=== PATIENT | male | born 1955 | race Hispanic/Latino ===

== ENCOUNTER 2017-01-25 16:55 | Emergency (ER) | payer MEDICAID, OTHER ==
[2017-01-25 16:57] VITALS: PULSE 84; RESP 16; TEMP 98.2; O2SAT 98
[2017-01-25 16:58] VITALS: BMI 22.6
--- NOTE | 2017-01-25 17:49 | ED PDOC ---
HPI: Back Time Seen by Provider: 01/25/17 17:05 Chief Complaint (Nursing): Back Pain History Per: Patient History/Exam Limitations: no limitations Onset/Duration Of Symptoms: Gradual (chronic shoulder and back pain) Current Symptoms Are (Timing): Still Present Severity: Mild Previous Symptoms: Back Pain Associated Symptoms: None Exacerbating Factor(s): Movement Additional History Per: Patient Additional Complaint(s): pt complains of worsening of his chronic shoulder and back pain, pt just got d/ c from heroin detox. concern over his bp no f/c/n/t/w, no bowel or bladder retention or incontinence Past Medical History Reviewed: Historical Data, Nursing Documentation, Vital Signs Vital Signs: Last Vital Signs Temp 98.2 F 01/25/17 16:57 Pulse 84 01/25/17 16:57 Resp 16 01/25/17 16:57 BP 143/85 01/25/17 16:57 Pulse Ox 98 01/25/17 16:57 - Medical History PMH: Anemia, Arthritis, Back Problems, HTN, Rheumatoid Arthritis, Chronic Pain Denies: Diabetes, Hepatitis, HIV, Chronic Kidney Disease, Seizures, Sexually Transmitted Disease - Family History Family History: States: Hypertension - Living Arrangements Living Arrangements: With Friends/Others - Social History Drugs: Opiates (heroin) - Immunization History Hx Tetanus Toxoid Vaccination: No Hx Influenza Vaccination: Yes Hx Pneumococcal Vaccination: Yes - Home Medications Home Medications: Ambulatory Orders Medication Instructions Recorded Clonidine 0.3 mg PO 01/20/17 Lisinopril [Zestril] 5 mg PO DAILY #30 tab 01/24/17 amLODIPine [Norvasc] 5 mg PO DAILY #30 tab 01/24/17 cloNIDine [Catapres] 0.1 mg PO Q8 #90 tab 01/24/17 traZODone [Desyrel] 50 mg PO HS PRN #30 tab 01/24/17 Cane 1 each MC ONCE #1 each 01/25/17 Ibuprofen [Motrin Tab] 600 mg PO QID PRN #60 tab 01/25/17 - Allergies Allergies/Adverse Reactions: Allergies Allergy/AdvReac Type Severity Reaction Status Date / Time No Known Allergies Allergy Verified 01/25/17 17:11 Review of Systems ROS Statement: Except As Marked, All Systems Reviewed And Found Negative Constitutional: Negative for: Fever, Chills Cardiovascular: Negative for: Chest Pain, Palpitations Respiratory: Negative for: Cough, Shortness of Breath Gastrointestinal: Negative for: Nausea, Vomiting, Abdominal Pain Neurological: Negative for: Weakness, Numbness, Change in Speech, Confusion, Seizures, Altered Mental Status, Headache, Dizziness Physical Exam - Reviewed Nursing Documentation Reviewed: Yes Vital Signs Reviewed: Yes - Physical Exam Appears: Positive for: Well, No Acute Distress Head Exam: Positive for: ATRAUMATIC, NORMAL INSPECTION, NORMOCEPHALIC Eye Exam: Positive for: Normal appearance, EOMI, PERRL ENT: Positive for: Pharynx Is Neck: Positive for: Normal, Painless ROM, Supple. Negative for: Decreased ROM, Limited ROM, Trachea Midline, Pain On Movement Of Neck Cardiovascular/Chest: Positive for: Regular Rate, Rhythm, Chest Non Tender. Negative for: Edema, Gallop, Murmur, Bradycardia, Tachycardia Respiratory: Positive for: Normal Breath Sounds. Negative for: Decreased Breath Sounds, Accessory Muscle Use, Crackles, Rales, Rhonchi, Stridor, Wheezing Pulses-Post. Tibialis (L): 2+ Pulses-Post. Tibialis (R): 2+ Pulses-Radial (L): 2+ Pulses-Radial (R): 2+ Gastrointestinal/Abdominal: Positive for: Normal Exam, Bowel Sounds, Soft. Negative for: Tenderness Back: Positive for: Normal Inspection. Negative for: L CVA Tenderness, R CVA Tenderness, Vertebral Tenderness, Decreased ROM, Muscle Spasm Extremity: Positive for: Normal ROM. Negative for: Tenderness, Pedal Edema, Calf Tenderness, Deformity, Swelling Neurologic/Psych: Positive for: Alert, non destructive testing inspector II-XII, Oriented, Mood/Affect (calm) , Gait (steady), Other (+ ehl bl). Negative for: Motor/Sensory Deficits, Aphasia, Facial Droop - ECG O2 Sat by Pulse Oximetry: 98 Pulse Ox Interpretation: Normal - Progress ED Course And Treament: pt wants percocet for pain but I would not prescribed a pt who just left opiate detox opiates. pt understands advise nsaids. advise recheck at medical clinic. Disposition - Clinical Impression Clinical Impression: Chronic back pain - Patient ED Disposition Is Patient to be Admitted: No Counseled Patient/Family Regarding: Studies Performed, Diagnosis, Need For Followup, Rx Given - Disposition Referrals: [facility] [Outside] (2 to 3 days) Disposition: Routine/Home Disposition Time: 17:46 Condition: GOOD Prescriptions: Cane 1 each MC ONCE #1 each Ibuprofen [Motrin Tab] 600 mg PO QID PRN #60 tab PRN Reason: Pain, Moderate (4-7) Instructions: Back Pain (ED)
[2017-01-25 17:57] VITALS: BP 131/89
== END 2017-01-25 17:55 | disposition home or self-care (01) ==
LOC: H.ER 16:55
DX: M54.9 Dorsalgia, unspecified (principal); G89.29 Other chronic pain; I10 Essential (primary) hypertension; M06.9 Rheumatoid arthritis, unspecified

== ENCOUNTER 2017-01-31 06:10 | Observation (INO) | payer MEDICAID, OTHER ==
[2017-01-31 06:10] VITALS: BMI 22.6
[2017-01-31 06:24] VITALS: BP 154/104; PULSE 73; RESP 20; TEMP 98; O2SAT 95
--- NOTE | 2017-01-31 06:31 | ED PDOC ---
HPI: Psych/Substance Abuse Time Seen by Provider: 01/31/17 06:17 Chief Complaint (Nursing): Substance Abuse Chief Complaint (Provider): possible overdose History Per: Patient History/Exam Limitations: no limitations Onset/Duration Of Symptoms: Hrs Current Symptoms Are (Timing): Better Additional Complaint(s): 61yo male with PMHx including polysubstance abuse, HTN, alcohol abuse presents to the ED for eval of possible overdose. Patient reports using 2 bags of heroin and drinking alcohol last night. [facility] called 911 when they saw patient. EMS administered 2mg of intranasal narcan in the field. Upon arrival to ED, patient is AAOx3. Past Medical History Reviewed: Historical Data, Nursing Documentation, Vital Signs Vital Signs: Last Vital Signs Temp 98 F 01/31/17 06:22 Pulse 73 01/31/17 06:22 Resp 20 01/31/17 06:22 BP 154/104 H 01/31/17 06:22 Pulse Ox 95 01/31/17 06:22 - Medical History PMH: Anemia, Arthritis, Back Problems, HTN, Rheumatoid Arthritis, Chronic Pain Denies: Diabetes, Hepatitis, HIV, Chronic Kidney Disease, Seizures, Sexually Transmitted Disease - Surgical History Other surgeries: left ankle - Family History Family History: States: Hypertension - Social History Alcohol: Other (hx of alcohol abuse) Drugs: Other (hx of polysubstance abuse ) - Immunization History Hx Tetanus Toxoid Vaccination: No Hx Influenza Vaccination: Yes Hx Pneumococcal Vaccination: Yes - Home Medications Home Medications: Ambulatory Orders Medication Instructions Recorded Clonidine 0.3 mg PO 01/20/17 Lisinopril [Zestril] 5 mg PO DAILY #30 tab 01/24/17 amLODIPine [Norvasc] 5 mg PO DAILY #30 tab 01/24/17 cloNIDine [Catapres] 0.1 mg PO Q8 #90 tab 01/24/17 traZODone [Desyrel] 50 mg PO HS PRN #30 tab 01/24/17 Cane 1 each MC ONCE #1 each 01/25/17 Ibuprofen [Motrin Tab] 600 mg PO QID PRN #60 tab 01/25/17 - Allergies Allergies/Adverse Reactions: Allergies Allergy/AdvReac Type Severity Reaction Status Date / Time No Known Allergies Allergy Verified 01/25/17 17:11 Review of Systems ROS Statement: Except As Marked, All Systems Reviewed And Found Negative Physical Exam - Reviewed Nursing Documentation Reviewed: Yes Vital Signs Reviewed: Yes - Physical Exam Appears: Positive for: Well, No Acute Distress Head Exam: Positive for: ATRAUMATIC, NORMAL INSPECTION, NORMOCEPHALIC Skin: Positive for: Normal Color, Warm, Dry Eye Exam: Positive for: Normal appearance, EOMI, PERRL ENT: Positive for: Normal ENT Inspection Neck: Positive for: Normal, Painless ROM, Supple Cardiovascular/Chest: Positive for: Regular Rate, Rhythm. Negative for: Murmur , Tachycardia Respiratory: Positive for: Normal Breath Sounds. Negative for: Wheezing, Respiratory Distress Gastrointestinal/Abdominal: Positive for: Normal Exam, Bowel Sounds, Soft. Negative for: Tenderness Back: Positive for: Normal Inspection Extremity: Positive for: Normal ROM. Negative for: Deformity, Swelling Neurologic/Psych: Positive for: Alert, Oriented - Laboratory Results Result Diagrams: 01/31/17 07:02 01/31/17 07:02 - ECG O2 Sat by Pulse Oximetry: 95 Pulse Ox Interpretation: Normal (RA) Medical Decision Making Medical Decision Makin: Impression: possible overdose Plan: EKG Labs IVF reassess Patient s/o to Dr. Viera at 0700 pending labs and re-eval. Scribe Attestation: Documented by Daja Yanez acting as a scribe for Parisa Bedolla MD. Provider Scribe Attestation: All medical record entries made by the Scribe were at my direction and personally dictated by me. I have reviewed the chart and agree that the record accurately reflects my personal performance of the history, physical exam, medical decision making, and the department course for this patient. I have also personally directed, reviewed, and agree with the discharge instructions and disposition. Disposition - Clinical Impression Clinical Impression: Polysubstance abuse - Patient ED Disposition Is Patient to be Admitted: Transfer of Care - Disposition Disposition: Transfer of Care Disposition Time: 07:00 Condition: STABLE Patient Signed Over To: Neftali Viera Handoff Comments: pending labs and re-eval
[2017-01-31] MEDS ORDERED: Sodium Chloride 0.9% 1,000 ML IV STA (06:40)
[2017-01-31 07:18] LABS: ALB/GLOB RATIO 1.1 (1.0-2.1); ALCOHOL SERUM 92 mg/dl (0-10); ALKALINE PHOSPHATASE 64 U/L (38-126); ALT/SGPT 29 U/L (21-72); AST/SGOT 26 U/L (17-59); BILIRUBIN,TOTAL 0.2 mg/dl (0.2-1.3); BLOOD UREA NITROGEN 17 mg/dl (9-20); CALCIUM 9.1 mg/dL (8.4-10.2); CARBON DIOXIDE 23 mmol/L (22-30); CHLORIDE 108 mmol/L (98-107); GFR AFRICAN-AMERICAN > 60; GLUCOSE,RANDOM 88 mg/dL (75-110); POTASSIUM 3.9 MMOL/L (3.6-5.0); SODIUM 140 mmol/l (132-148); TOTAL PROTEIN 7.8 G/DL (6.3-8.2)
--- NOTE | 2017-01-31 07:20 | ED PDOC ---
- Laboratory Results Result Diagrams: 01/31/17 07:02 01/31/17 07:02 - ECG O2 Sat by Pulse Oximetry: 95 (RA) Pulse Ox Interpretation: Normal Medical Decision Making Medical Decision Makin:00 Patient transferred over to provider by Dr. Bedolla. Pending clinical sobriety. 07:25 Patient will be placed within ED Observation secondary to substance abuse. Pending clinical sobriety. See Observation note for further updates. 08:34 Upon provider reevaluation patient is awake, alert, and oriented, eating a full meal and speaking in complete sentences, is medically stable, and requires no further treatment in the emergency department at this time. Patient will be discharge home. Counseling was provided and all questions were answered regarding diagnosis. Patient is in agreement with provider's discharge plan. Clinical Impression: Polysubstance abuse Scribe Attestation: Documented by Ganga Andre, acting as a scribe for Neftali Viera MD. Provider Scribe Attestation: All medical record entries made by the Scribe were at my direction and personally dictated by me. I have reviewed the chart and agree that the record accurately reflects my personal performance of the history, physical exam, medical decision making, and the department course for this patient. I have also personally directed, reviewed, and agree with the discharge instructions Disposition Counseled Patient/Family Regarding: Studies Performed, Diagnosis - Clinical Impression Clinical Impression: Polysubstance abuse - POA Present On Arrival: None - Disposition Disposition: Routine/Home Disposition Time: 08:34 Condition: STABLE ED OBSERVATION Date of observation admission: 01/31/17 Time of observation admission: 07:25 - Observation admission statement Patient is being placed in observation because:: Secondary to substance abuse. - Goals of Observation Goals of observation are:: Pending clinical sobriety.
[2017-01-31 07:22] LABS: BASO % 0.7 % (0.0-2.0); EOS # 0.1 K/uL (0.0-0.7); EOS % 1.4 % (0.0-4.0); HEMATOCRIT 39.5 % (35.0-51.0); LYMPH # 1.6 K/uL (1.0-4.3); LYMPH % 25.2 % (20.0-40.0); MEAN CELL VOLUME 83.7 fl (80.0-94.0); MEAN CORPUSCULAR HEMOGLOBIN 26.9 pg (27.0-31.0); MEAN CORPUSCULAR HGB CONC 32.1 g/dL (33.0-37.0); MEAN PLATELET VOLUME 8.7 fl (7.2-11.7); MONO # 0.6 K/uL (0.0-0.8); MONO % 9.3 % (0.0-10.0); NEUT # 4.1 K/uL (1.8-7.0); NEUT % 63.4 % (50.0-75.0); RED CELL DISTRIBUTION WIDTH 14.7 % (11.5-14.5); WHITE BLOOD COUNT 6.5 K/uL (4.8-10.8)
--- NOTE | 2017-01-31 08:12 | CARD ---
APPROVED REPORT EKG Measurement Heart [id number] NV [id number] [id number] <Conclusion> Normal sinus rhythm Minimal voltage criteria for LVH, may be normal variant Borderline ECG
== END 2017-01-31 09:03 | disposition home or self-care (01) ==
LOC: H.ER 06:10 → H.EROBSV 07:25 → INTOOBSV 07:25
PROVIDERS: ADMIT Emergency Medicine; ATTEND Emergency Medicine
DX: F11.10 Opioid abuse, uncomplicated (principal); F10.10 Alcohol abuse, uncomplicated; Y90.4 Blood alcohol level of 80-99 mg/100 ml; I10 Essential (primary) hypertension; M06.9 Rheumatoid arthritis, unspecified; G89.29 Other chronic pain; D64.9 Anemia, unspecified; M19.90 Unspecified osteoarthritis, unspecified site

== ENCOUNTER 2017-07-14 13:50 | Observation (INO) | payer OTHER ==
[2017-07-14 13:50] VITALS: BMI 22.6
--- NOTE | 2017-07-14 14:24 | ED PDOC ---
HPI: Chest Pain Time Seen by Provider: 07/14/17 14:02 Chief Complaint (Nursing): Chest Pain Chief Complaint (Provider): Chest Pain and Shortness of breath History Per: Patient History/Exam Limitations: no limitations Onset/Duration Of Symptoms: Hrs Current Symptoms Are (Timing): Still Present Context: Other Quality: "Pain" Associated Symptoms: denies: Nausea, Dyspnea, Diaphoresis, Syncope Modifying Factors: None Exacerbating Factors: None Alleviating Factors: None Additional Complaint(s): Lamberto Small, a 61 year old male, presents to the ED, complaining of chest pain associated with shortness of breath. The patient admits to doing cocaine as well as marijuana earlier today. Patient has had multiple admissions for chest pain secondary to substance abuse. - Risk Factors TAD Risk Factors: Pos: Hypertension Past Medical History Reviewed: Historical Data, Nursing Documentation, Vital Signs Vital Signs: Last Vital Signs Temp 98.0 F 07/14/17 13:54 Pulse 73 07/14/17 13:54 Resp 18 07/14/17 13:54 BP 137/93 H 07/14/17 13:54 Pulse Ox 97 07/14/17 14:36 - Medical History PMH: Anemia, Arthritis, Back Problems, HTN, Rheumatoid Arthritis, Chronic Pain Denies: Diabetes, Hepatitis, HIV, Chronic Kidney Disease, Seizures, Sexually Transmitted Disease Other PMH: Substance Abuse - Surgical History Surgical History: No Surg Hx - Family History Family History: States: Unknown Family Hx, Hypertension - Social History Drugs: Cocaine - Immunization History Hx Tetanus Toxoid Vaccination: No Hx Influenza Vaccination: Yes Hx Pneumococcal Vaccination: Yes - Home Medications Home Medications: Ambulatory Orders Medication Instructions Recorded Clonidine 0.3 mg PO 01/20/17 Lisinopril [Zestril] 5 mg PO DAILY #30 tab 01/24/17 amLODIPine [Norvasc] 5 mg PO DAILY #30 tab 01/24/17 cloNIDine [Catapres] 0.1 mg PO Q8 #90 tab 01/24/17 traZODone [Desyrel] 50 mg PO HS PRN #30 tab 01/24/17 Cane 1 each MC ONCE #1 each 01/25/17 Ibuprofen [Motrin Tab] 600 mg PO QID PRN #60 tab 01/25/17 - Allergies Allergies/Adverse Reactions: Allergies Allergy/AdvReac Type Severity Reaction Status Date / Time No Known Allergies Allergy Verified 01/25/17 17:11 Review of Systems ROS Statement: Except As Marked, All Systems Reviewed And Found Negative Cardiovascular: Positive for: Chest Pain (associated with shortness of breath ) Respiratory: Positive for: Shortness of Breath Physical Exam - Reviewed Nursing Documentation Reviewed: Yes Vital Signs Reviewed: Yes - Physical Exam Appears: Positive for: Non-toxic, No Acute Distress Head Exam: Positive for: ATRAUMATIC, NORMAL INSPECTION, NORMOCEPHALIC Skin: Positive for: Normal Color, Warm, Dry. Negative for: Rash Eye Exam: Positive for: Normal appearance, EOMI, PERRL. Negative for: Nystagmus ENT: Positive for: Normal ENT Inspection. Negative for: Nasal Congestion, Tonsillar Exudate Neck: Positive for: Normal, Painless ROM, Supple Cardiovascular/Chest: Positive for: Regular Rate, Rhythm, Chest Non Tender. Negative for: Tachycardia Respiratory: Positive for: Normal Breath Sounds. Negative for: Wheezing, Respiratory Distress Gastrointestinal/Abdominal: Positive for: Normal Exam, Bowel Sounds, Soft. Negative for: Tenderness, Mass, Guarding, Rebound Back: Positive for: Normal Inspection. Negative for: L CVA Tenderness, R CVA Tenderness Extremity: Positive for: Normal ROM. Negative for: Tenderness, Deformity, Swelling Neurologic/Psych: Positive for: Alert, Oriented, Gait - Laboratory Results Result Diagrams: 07/14/17 14:38 07/14/17 14:38 - ECG O2 Sat by Pulse Oximetry: 97 (RA) Pulse Ox Interpretation: Normal Medical Decision Making Medical Decision Makin Initial Impression: 61 y/o male presenting with chest pain secondary to substance abuse Initial plan: * EKG * Alcohol serum * Drug screen * Troponin * CBC * Chest x-ray * Aspirin 325mg PO * Ativan 1mg PO * Reevaluation 1419 Admit to chest pain observation EKG Performed: * Sinus bradycardia at 59 bpm * No acute ST changes Scribe Attestation Documented by Liz Verdugo acting as a scribe for Noel Hodges MD. Provider Attestation All medical record entries made by the Scribe were at my direction and personally dictated by me. I have reviewed the chart and agree that the record accurately reflects my personal performance of the history, physical exam, medical decision making, and the department course for this patient. I have also personally directed, reviewed, and agree with the discharge instructions and disposition. Disposition - Clinical Impression Clinical Impression: Cocaine abuse, Chest pain - Patient ED Disposition Is Patient to be Admitted: Yes - Disposition Disposition Time: 14:19 Condition: FAIR - Pt Status Changed To: Hospital Disposition Of: Observation - POA Present On Arrival: None Core Measure Indicators: Chest Pain
[2017-07-14 14:55] LABS: BASO % 0.6 % (0.0-2.0); EOS # 0.1 K/uL (0.0-0.7); EOS % 1.5 % (0.0-4.0); HEMATOCRIT 41.8 % (35.0-51.0); LYMPH # 1.5 K/uL (1.0-4.3); LYMPH % 21.1 % (20.0-40.0); MEAN CORPUSCULAR HGB CONC 32.9 g/dL (33.0-37.0); MEAN PLATELET VOLUME 9.4 fl (7.2-11.7); MONO # 0.6 K/uL (0.0-0.8); MONO % 9.1 % (0.0-10.0); NEUT # 4.7 K/uL (1.8-7.0); NEUT % 67.7 % (50.0-75.0)
--- NOTE | 2017-07-14 15:12 | RAD ---
HISTORY: Chest pain. COMPARISON: 04/12/2016 TECHNIQUE: Chest PA and lateral FINDINGS: LUNGS: No active pulmonary disease. PLEURA: No significant pleural effusion identified. No pneumothorax apparent. CARDIOVASCULAR: No radiographic findings to suggest acute or significant cardiovascular disease. OSSEOUS STRUCTURES: No significant abnormalities. VISUALIZED UPPER ABDOMEN: Surgical clips right upper quadrant and left upper quadrant. Incompletely visualized dilated stomach with air-fluid level. OTHER FINDINGS: None. IMPRESSION: No active disease. No significant interval change compared to the prior examination(s). Please note: No preliminary report/ innterpretation of this examination provided by emergency department personnel.
[2017-07-14 15:22] LABS: ALB/GLOB RATIO 1.2 (1.0-2.1); ALCOHOL SERUM < 10 mg/dl (0-10); ALKALINE PHOSPHATASE 56 U/L (38-126); ALT/SGPT 19 U/L (21-72); AST/SGOT 23 U/L (17-59); BILIRUBIN,TOTAL 0.2 mg/dl (0.2-1.3); BLOOD UREA NITROGEN 14 mg/dl (9-20); CALCIUM 9.5 mg/dL (8.4-10.2); CARBON DIOXIDE 24 mmol/L (22-30); CHLORIDE 107 mmol/L (98-107); GFR AFRICAN-AMERICAN > 60; GLUCOSE,RANDOM 105 mg/dL (75-110); SODIUM 145 mmol/l (132-148); TOTAL PROTEIN 7.4 G/DL (6.3-8.2)
[2017-07-14] MEDS ORDERED: DiphenhydrAMINE 50 mg/ml Inj IVP ONE (21:08)
[2017-07-14] MEDS ORDERED: Pneumococcal 23-Valent Vaccine IM ONE (22:00)
[2017-07-14] MEDS ORDERED: Influenza Vaccine 18yr & older 0.5 ML/45 MCG SYR IM ONE (22:00)
[2017-07-15] MEDS ORDERED: Enoxaparin 30 mg Syringe SC SCH (09:00)
[2017-07-15] MEDS: Albuterol HFA 90 mcg/actuation (8 g) IH SCH ×2 (09:47→17:00)
[2017-07-15] MEDS: Enoxaparin 40 mg Syringe SC SCH (09:47)
--- NOTE | 2017-07-15 12:46 | CARD ---
APPROVED REPORT EKG Measurement Heart [id number] [place] [id number] <Conclusion> Sinus bradycardia Possible Left atrial enlargement Borderline ECG
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
--- NOTE | 2017-07-15 16:25 | CON ---
CARDIOLOGY CONSULTATION DATE: REASON FOR CONSULTATION: Chest pain and shortness of breath. HISTORY OF PRESENT ILLNESS: The patient is a 61 years old male who has a history of multiple drug abuse including cocaine, presented because of what he describes as sharp chest pain, nonradiating. The patient is not aware of any history of heart attack in the past and denies any history of cardiac catheterization or coronary intervention. SOCIAL HISTORY: The patient is a smoker and drinker, but denies any intravenous drug abuse. The patient is also a cocaine, heroin, and marijuana abuser. REVIEW OF SYSTEMS: No nausea or vomiting. No fever or chills. MEDICATIONS: Aspirin 81 mg once a day, clonidine 0.2 mg q. 8 hours, trazodone 50 mg at bedtime, Lovenox 40 mg subcutaneous daily, Norvasc 5 mg once a day, and Zestril 5 mg once daily. PHYSICAL EXAMINATION: GENERAL: The patient is a middle-aged male who does not appears to be in acute distress at this time. VITAL SIGNS: Blood pressure 163/94, heart rate 63, temperature 98.4, and respirations 20. HEENT: Normocephalic. NECK: No JVD. CHEST: Clear. HEART: S1 and S2 regular. ABDOMEN: Soft. EXTREMITIES: No edema. LABORATORY DATA: Hemoglobin, hematocrit, white count and platelet count are within normal limits. Today, SMA-7 is within normal limits. Two sets of troponins are negative. Urine drug screen is positive for opiates, cocaine, and cannabinoids. EKG reveals sinus bradycardia at the rate of 59, possible left atrial enlargement. ASSESSMENT: 1. Chest pain, status post cocaine abuse. 2. Hypertension. RECOMMENDATIONS: Continue aspirin 81 mg once a day, clonidine 0.2 mg q. 8 hours, Lovenox at 40 mg once a day, Norvasc at 5 mg once a day, Zestril at 5 mg once a day. I will review the echocardiographic study performed today. The patient is not a suitable candidate for beta blockers. Thien Napier MD
[2017-07-16 05:23] VITALS: O2SAT 98
--- NOTE | 2017-07-16 08:44 | CARD ---
APPROVED REPORT EXAM: Two-dimensional and M-mode echocardiogram with Doppler and color Doppler. Other Information Quality : GoodRhythm : NSR INDICATION Chest Pain 2D DIMENSIONS IVSd1.44 (0.7-1.1cm)LVDd4.81 (3.9-5.9cm) LVOT Diameter2.13 (1.8-2.4cm)PWd1.05 (0.7-1.1cm) IVSs2.09 (0.8-1.2cm)LVDs2.80 (2.5-4.0cm) FS (%) 41.9 %PWs1.86 (0.8-1.2cm) M-Mode DIMENSIONS Left Atrium (MM)4.79 (2.5-4.0cm)IVSd1.47 (0.7-1.1cm) Aortic Root3.76 (2.2-3.7cm)LVDd5.21 (4.0-5.6cm) Aortic Cusp Exc.2.76 (1.5-2.0cm)PWd1.26 (0.7-1.1cm) IVSs1.56 cmFS (%) 29 % LVDs3.71 (2.0-3.8cm)PWs1.47 cm Mitral Valve MV E Aigqtmuv77.9cm/sMV DECEL [id number] A Mmidpiuf19.0cm/s MV TBZ86azA/A ratio0.9MVA (PHT)2.27cm2 TDI Lateral E' Peak V8.64cm/sMedial E' Peak V3.75cm/sE/Lateral E'4.6 E/Medial E'10.6 Pulmonary Valve PV Peak Ybdfoqyf44.4cm/s LEFT VENTRICLE The left ventricle is normal size. There is moderate asymmetric left ventricular hypertrophy. The left ventricular function is normal. The left ventricular ejection fraction is 60% There is normal LV segmental wall motion. The left ventricular diastolic function is normal. No left ventricle thrombus noted on this study. There is no ventricular septal defect visualized. There is no left ventricular aneurysm. There is no mass noted in the left ventricle. RIGHT VENTRICLE The right ventricle is normal size. There is normal right ventricular wall thickness. The right ventricular systolic function is normal. ATRIA The left atrium is moderately dilated. The right atrium size is normal. The interatrial septum is intact with no evidence for an atrial septal defect. AORTIC VALVE The aortic valve is normal in structure and function. No aortic regurgitation is present. There is no aortic valvular stenosis. There is no aortic valvular vegetation. MITRAL VALVE The mitral valve is normal in structure and function. There is no evidence of mitral valve prolapse. There is no mitral valve stenosis. There is no mitral valve regurgitation noted. TRICUSPID VALVE The tricuspid valve is normal in structure and function. There is no tricuspid valve regurgitation noted. There is no tricuspid valve prolapse or vegetation. There is no tricuspid valve stenosis. PULMONIC VALVE The pulmonary valve is normal in structure and function. There is no pulmonic valvular regurgitation. There is no pulmonic valvular stenosis. GREAT VESSELS The aortic root is normal in size. The ascending aorta is normal in size. The IVC is normal in size and collapses >50% with inspiration. PERICARDIAL EFFUSION The pericardium appears normal. There is no pleural effusion. <Conclusion> Normal LV Systolic Function Asymetric Septal Hypertrophy No resting outflow gradient Left Atrial Enlargement
[2017-07-16] MEDS: Enoxaparin 40 mg Syringe SC SCH (09:59)
[2017-07-16] MEDS: Albuterol HFA 90 mcg/actuation (8 g) IH SCH (09:59)
[2017-07-16 12:34] VITALS: BP 149/85; PULSE 55; RESP 18; TEMP 98.3
--- NOTE | 2017-07-16 16:09 | CP.PCM.DIS ---
<Sammi Knox - Last Filed: 07/16/17 16:10> Provider - Provider Date of Admission: 07/14/17 14:19 Attending physician: Que Nichole MD Time Spent in preparation of Discharge (in minutes): 30 Diagnosis - Discharge Diagnosis (1) Chest pain Status: Acute Hospital Course - Lab Results Lab Results: Most Recent Lab Values WBC 7.0 K/uL (4.8-10.8) 07/14/17 14:38 RBC 4.93 Mil/uL (4.40-5.90) 07/14/17 14:38 Hgb 13.8 g/dL (12.0-18.0) 07/14/17 14:38 Hct 41.8 % (35.0-51.0) 07/14/17 14:38 MCV 85.0 fl (80.0-94.0) 07/14/17 14:38 MCH 28.0 pg (27.0-31.0) 07/14/17 14:38 MCHC 32.9 g/dL (33.0-37.0) L 07/14/17 14:38 RDW 15.0 % (11.5-14.5) H 07/14/17 14:38 Plt Count 203 K/uL (130-400) 07/14/17 14:38 MPV 9.4 fl (7.2-11.7) 07/14/17 14:38 Neut % (Auto) 67.7 % (50.0-75.0) 07/14/17 14:38 Lymph % (Auto) 21.1 % (20.0-40.0) 07/14/17 14:38 [place] % (Auto) 9.1 % (0.0-10.0) 07/14/17 14:38 Eos % (Auto) 1.5 % (0.0-4.0) 07/14/17 14:38 Baso % (Auto) 0.6 % (0.0-2.0) 07/14/17 14:38 Neut # 4.7 K/uL (1.8-7.0) 07/14/17 14:38 Lymph # 1.5 K/uL (1.0-4.3) 07/14/17 14:38 [place] # 0.6 K/uL (0.0-0.8) 07/14/17 14:38 Eos # 0.1 K/uL (0.0-0.7) 07/14/17 14:38 Baso # 0.0 K/uL (0.0-0.2) 07/14/17 14:38 Sodium 145 mmol/l (132-148) 07/14/17 14:38 Potassium 4.0 MMOL/L (3.6-5.0) 07/14/17 14:38 Chloride 107 mmol/L (98-107) 07/14/17 14:38 Carbon Dioxide 24 mmol/L (22-30) 07/14/17 14:38 Anion Gap 18 (10-20) 07/14/17 14:38 BUN 14 mg/dl (9-20) 07/14/17 14:38 Creatinine 1.1 mg/dL (0.8-1.5) 07/14/17 14:38 Est GFR ( Amer) > 60 07/14/17 14:38 Est GFR (Non-Af Amer) > 60 07/14/17 14:38 Random Glucose 105 mg/dL (75-110) 07/14/17 14:38 Calcium 9.5 mg/dL (8.4-10.2) 07/14/17 14:38 Total Bilirubin 0.2 mg/dl (0.2-1.3) 07/14/17 14:38 AST 23 U/L (17-59) 07/14/17 14:38 ALT 19 U/L (21-72) L D 07/14/17 14:38 Alkaline Phosphatase 56 U/L (38-126) 07/14/17 14:38 Troponin I < 0.0120 ng/mL (0.00-0.120) 07/16/17 08:10 Total Protein 7.4 G/DL (6.3-8.2) 07/14/17 14:38 Albumin 4.1 g/dL (3.5-5.0) 07/14/17 14:38 Globulin 3.4 gm/dL (2.2-3.9) 07/14/17 14:38 Albumin/Globulin Ratio 1.2 (1.0-2.1) 07/14/17 14:38 Urine Opiates Screen Positive (NEGATIVE) H 07/14/17 16:05 Urine Methadone Screen Negative (NEGATIVE) 07/14/17 16:05 Ur Barbiturates Screen Negative (NEGATIVE) 07/14/17 16:05 Ur Phencyclidine Scrn Negative (NEGATIVE) 07/14/17 16:05 Ur Amphetamines Screen Negative (NEGATIVE) 07/14/17 16:05 U Benzodiazepines Scrn Negative (NEGATIVE) 07/14/17 16:05 U Oth Cocaine Metabols Positive (NEGATIVE) H 07/14/17 16:05 U Cannabinoids Screen Positive (NEGATIVE) H 07/14/17 16:05 Alcohol, Quantitative < 10 mg/dl (0-10) 07/14/17 14:38 - Hospital Course Hospital Course: Patient was admitted for chest pain after using cocaine. Patient was worked up thoughly. EKG was WNL. Troponin x 3 negative. Patient was also cleared by cardiology. Currently patient denies chest pain. Patients resting heart rate seems to be around 60, patient is feeling better. Has been advised to f/U with Dr. Nichole outpatient in the next 2-3 days. Discharge Exam - Head Exam Head Exam: NORMAL INSPECTION - Eye Exam Eye Exam: Normal appearance - Respiratory Exam Respiratory Exam: Clear to PA & Lateral, NORMAL BREATHING PATTERN - Cardiovascular Exam Cardiovascular Exam: REGULAR RHYTHM, +S1, +S2 - GI/Abdominal Exam GI & Abdominal Exam: Normal Bowel Sounds, Unremarkable - Neurological Exam Neurological exam: Alert, CN II-XII Intact, Oriented x3 - Skin Skin Exam: Normal Color, Warm Discharge Plan - Discharge Medications Prescriptions: Aspirin [Aspirin Chewable] 81 mg PO DAILY #30 chew - Follow Up Plan Condition: FAIR Disposition: HOME/ ROUTINE Instructions: Chest Pain (DC), Chronic Hypertension (DC) Additional Instructions: pt. cleared for discharge to Home today by , cont. current meds rx for asa provided pt. to f/u with PMD in 1 week <Que Nichole - Last Filed: 07/17/17 15:48> Provider - Provider Date of Admission: 07/14/17 14:19 Attending physician: Que Nichole MD Hospital Course - Lab Results Lab Results: Most Recent Lab Values WBC 7.0 K/uL (4.8-10.8) 07/14/17 14:38 RBC 4.93 Mil/uL (4.40-5.90) 07/14/17 14:38 Hgb 13.8 g/dL (12.0-18.0) 07/14/17 14:38 Hct 41.8 % (35.0-51.0) 07/14/17 14:38 MCV 85.0 fl (80.0-94.0) 07/14/17 14:38 MCH 28.0 pg (27.0-31.0) 07/14/17 14:38 MCHC 32.9 g/dL (33.0-37.0) L 07/14/17 14:38 RDW 15.0 % (11.5-14.5) H 07/14/17 14:38 Plt Count 203 K/uL (130-400) 07/14/17 14:38 MPV 9.4 fl (7.2-11.7) 07/14/17 14:38 Neut % (Auto) 67.7 % (50.0-75.0) 07/14/17 14:38 Lymph % (Auto) 21.1 % (20.0-40.0) 07/14/17 14:38 [place] % (Auto) 9.1 % (0.0-10.0) 07/14/17 14:38 Eos % (Auto) 1.5 % (0.0-4.0) 07/14/17 14:38 Baso % (Auto) 0.6 % (0.0-2.0) 07/14/17 14:38 Neut # 4.7 K/uL (1.8-7.0) 07/14/17 14:38 Lymph # 1.5 K/uL (1.0-4.3) 07/14/17 14:38 [place] # 0.6 K/uL (0.0-0.8) 07/14/17 14:38 Eos # 0.1 K/uL (0.0-0.7) 07/14/17 14:38 Baso # 0.0 K/uL (0.0-0.2) 07/14/17 14:38 Sodium 145 mmol/l (132-148) 07/14/17 14:38 Potassium 4.0 MMOL/L (3.6-5.0) 07/14/17 14:38 Chloride 107 mmol/L (98-107) 07/14/17 14:38 Carbon Dioxide 24 mmol/L (22-30) 07/14/17 14:38 Anion Gap 18 (10-20) 07/14/17 14:38 BUN 14 mg/dl (9-20) 07/14/17 14:38 Creatinine 1.1 mg/dL (0.8-1.5) 07/14/17 14:38 Est GFR ( Amer) > 60 07/14/17 14:38 Est GFR (Non-Af Amer) > 60 07/14/17 14:38 Random Glucose 105 mg/dL (75-110) 07/14/17 14:38 Calcium 9.5 mg/dL (8.4-10.2) 07/14/17 14:38 Total Bilirubin 0.2 mg/dl (0.2-1.3) 07/14/17 14:38 AST 23 U/L (17-59) 07/14/17 14:38 ALT 19 U/L (21-72) L D 07/14/17 14:38 Alkaline Phosphatase 56 U/L (38-126) 07/14/17 14:38 Troponin I < 0.0120 ng/mL (0.00-0.120) 07/16/17 08:10 Total Protein 7.4 G/DL (6.3-8.2) 07/14/17 14:38 Albumin 4.1 g/dL (3.5-5.0) 07/14/17 14:38 Globulin 3.4 gm/dL (2.2-3.9) 07/14/17 14:38 Albumin/Globulin Ratio 1.2 (1.0-2.1) 07/14/17 14:38 Urine Opiates Screen Positive (NEGATIVE) H 07/14/17 16:05 Urine Methadone Screen Negative (NEGATIVE) 07/14/17 16:05 Ur Barbiturates Screen Negative (NEGATIVE) 07/14/17 16:05 Ur Phencyclidine Scrn Negative (NEGATIVE) 07/14/17 16:05 Ur Amphetamines Screen Negative (NEGATIVE) 07/14/17 16:05 U Benzodiazepines Scrn Negative (NEGATIVE) 07/14/17 16:05 U Oth Cocaine Metabols Positive (NEGATIVE) H 07/14/17 16:05 U Cannabinoids Screen Positive (NEGATIVE) H 07/14/17 16:05 Alcohol, Quantitative < 10 mg/dl (0-10) 07/14/17 14:38
== END 2017-07-16 13:09 | disposition home or self-care (01) ==
LOC: H.ER 13:50 → H.ERHOLD 14:19 → H.TEL 16:51 → OBSVTOIN 07-15 16:03 → INTOOBSV 07-15 16:03
PROVIDERS: ADMIT Internal Medicine; ATTEND Internal Medicine
DX: R07.89 Other chest pain (principal); F14.10 Cocaine abuse, uncomplicated; I10 Essential (primary) hypertension; M06.9 Rheumatoid arthritis, unspecified; F17.200 Nicotine dependence, unspecified, uncomplicated; G89.29 Other chronic pain; Z23 Encounter for immunization
CPT/HCPCS: 36415; 71020; 80053; 80320; 80324; 80345; 80346; 80349; 80353; 80358; 80361; 83992; 84484; 85025; 90471; 90732; 93005; 93306; 99282; G0378; J1200; J1650; Q2035

== ENCOUNTER 2017-08-18 00:53 | Inpatient (IN) | payer OTHER ==
[2017-08-18 00:53] VITALS: BMI 22.6
[2017-08-18] MEDS ORDERED: Labetalol 5 mg/ml Inj 20ML IVP STA (01:31)
--- NOTE | 2017-08-18 01:46 | ED PDOC ---
HPI: Chest Pain Time Seen by Provider: 08/18/17 01:09 Chief Complaint (Nursing): Chest Pain Chief Complaint (Provider): Chest Pain History Per: Patient History/Exam Limitations: no limitations Onset/Duration Of Symptoms: Hrs (3) Current Symptoms Are (Timing): Still Present Severity: Moderate Pain Scale Rating Of: 7 Front/Back of Body, Lg (Color): 1 - Chest/epigastric Pain Quality: Sharp, "Pain" Associated Symptoms: Dyspnea. denies: Nausea Exacerbating Factors: Movement, Deep Breathing Additional Complaint(s): Lamberto Small is a pleasant 61 yo male with PMHx of HTN who presents to the ED with chest pain. He shares that symptoms started at 22:30 yesterday. Pain is described as sharp, "needle Like" and radiates along his sternum. Pain is intermittent lasting about 2 minutes. Pain scale: 7/10. He also shares of associated SOB 2/2 to pain and blurred vision for the past hour. Pain is aggravated by forward bend, deep breathing. Alleviating factors include resting. Denies: N/V/recent illness/trauma/injury to his chest. Hypertensive urgency: He shares of not taking his clonidine 0.3 for 3 days due to lack of supply. PCP: Dr. Caballero at [facility] PMHx: Htn, Achilles tendonopathy PSurgHx: Achilles repair (x6) FHx: HTN: father and mother; Lung CA: mother SocHx: Current every day 1/2 ppd for 51 years; 1/2 pint of liquor 3/week; heroin and cocaine abuse: last used 6 hours ago NKDA Meds: Clonidine 0.3; Percocet 10mg; Norvasc, ASA Past Medical History Vital Signs: Last Vital Signs Temp 98.2 F 08/18/17 02:31 Pulse 61 08/18/17 02:31 Resp 16 08/18/17 02:31 BP 157/100 H 08/18/17 02:31 Pulse Ox 97 08/18/17 06:04 - Medical History PMH: Anemia, Arthritis, Back Problems, HTN, Rheumatoid Arthritis, Chronic Pain Denies: Diabetes, Hepatitis, HIV, Chronic Kidney Disease, Seizures, Sexually Transmitted Disease Other PMH: Achilles tendenopathy - Surgical History Other surgeries: Achilles tendon repair (x6) - Family History Family History: States: Hypertension Other Family History: Mother: Lung Cancer - Social History Current smoker - smoking cessation education provided: Yes SMOKER/PACKS PER DAY:: 3 Alcohol: > 2 Drinks/Day (1/2 pint, 3x/week) Drugs: Cocaine, Opiates (Heroin; percocet) - Immunization History Hx Tetanus Toxoid Vaccination: No Hx Influenza Vaccination: Yes Hx Pneumococcal Vaccination: Yes - Home Medications Home Medications: Ambulatory Orders Medication Instructions Recorded Lisinopril [Zestril] 5 mg PO DAILY #30 tab 01/24/17 amLODIPine [Norvasc] 5 mg PO DAILY #30 tab 01/24/17 cloNIDine [Catapres] 0.3 mg PO Q8 07/14/17 - Allergies Allergies/Adverse Reactions: Allergies Allergy/AdvReac Type Severity Reaction Status Date / Time No Known Allergies Allergy Verified 01/25/17 17:11 AYESHA Risk Score for UA/NSTEMI - AYESHA Risk Score Age > 64: NO 3 or more CAD Risk Factors: NO Known CAD (Stenosis greater than 50%): NO Aspirin use in past 7 days: NO Severe Angina: NO EKG ST changes greater than 0.5mm: NO Positive Cardiac Marker: NO AYESHA Score: 0 Risk %: 5% Curb-65 Severity Score - CURB-65 Severity Score Confusion: No Respiratory Rate greater than/equal to 30: No Systolic BP <90 or Diastolic BP less than/equal 60mmHg: No Age >64: No Curb-65 Score: 0 Percentage 30-day mortality: 0.6% Wells Criteria for PE - Wells Criteria for Pulmonary Embolism Clinical Signs and Symptoms of DVT: No P.E is #1 Diagnosis, or Equally Likely: No Heart Rate >100: No Immobilization at least 3 days;Surgery previous 4 weeks: No Previous, objectively diagnosed PE or DVT: No Hemoptysis: No Malignancy w/treatment within 6 months, or palliative: No Total Score: 0 Review of Systems ROS Statement: Except As Marked, All Systems Reviewed And Found Negative Eyes: Positive for: Vision Change (blurred vision) Cardiovascular: Positive for: Chest Pain Respiratory: Positive for: Shortness of Breath Gastrointestinal: Positive for: Abdominal Pain. Negative for: Nausea, Vomiting Musculoskeletal: Positive for: Leg Pain (L) Neurological: Negative for: Confusion, Altered Mental Status Physical Exam - Reviewed Vital Signs Reviewed: Yes (hypertensive) - Physical Exam Appears: Positive for: Uncomfortable Skin: Positive for: Warm, Dry Eye Exam: Positive for: EOMI. Negative for: Nystagmus Cardiovascular/Chest: Positive for: Regular Rate, Rhythm, Other (Sternal tenderness) Respiratory: Positive for: Normal Breath Sounds. 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
[2017-08-18 01:56] LABS: RBC URINE 1 /hpf (0-3); URINE BILIRUBIN NEGATIVE (NEGATIVE); URINE BLOOD SMALL (NEGATIVE); URINE COLOR YELLOW (YELLOW); URINE GLUCOSE (UA) NEG (Normal); URINE KETONE NEGATIVE (NEGATIVE); URINE LEUKOCYTE ESTERASE NEG Leu/uL (Negative); URINE PROTEIN 30 mg/dL (NEGATIVE); URINE UROBILINOGEN 0.2-1.0 mg/dL (0.2-1.0); WBC URINE 1 /hpf (0-5)
[2017-08-18 01:58] LABS: BASO % 0.7 % (0.0-2.0); EOS # 0.1 K/uL (0.0-0.7); HEMATOCRIT 39.7 % (35.0-51.0); LYMPH # 1.8 K/uL (1.0-4.3); LYMPH % 29.5 % (20.0-40.0); MEAN CELL VOLUME 84.7 fl (80.0-94.0); MEAN CORPUSCULAR HEMOGLOBIN 27.1 pg (27.0-31.0); MEAN PLATELET VOLUME 8.9 fl (7.2-11.7); MONO # 0.6 K/uL (0.0-0.8); MONO % 9.9 % (0.0-10.0); NEUT # 3.5 K/uL (1.8-7.0); NEUT % 58.9 % (50.0-75.0); RED CELL DISTRIBUTION WIDTH 14.5 % (11.5-14.5)
[2017-08-18 02:12] LABS: PARTIAL THROMBOPLASTIN TIME 29.4 Seconds (25.6-37.1)
[2017-08-18 02:14] LABS: ALCOHOL SERUM 53 mg/dl (0-10); LIPASE 81 U/L (23-300)
[2017-08-18 02:15] LABS: ALB/GLOB RATIO 1.2 (1.0-2.1); ALKALINE PHOSPHATASE 57 U/L (38-126); ALT/SGPT 38 U/L (21-72); AST/SGOT 37 U/L (17-59); BILIRUBIN,TOTAL 0.3 mg/dl (0.2-1.3); BLOOD UREA NITROGEN 21 mg/dl (9-20); CALCIUM 9.1 mg/dL (8.4-10.2); CARBON DIOXIDE 26 mmol/L (22-30); CHLORIDE 105 mmol/L (98-107); GFR AFRICAN-AMERICAN > 60; GLUCOSE,RANDOM 89 mg/dL (75-110); POTASSIUM 3.5 MMOL/L (3.6-5.0); SODIUM 147 mmol/l (132-148); TOTAL PROTEIN 7.6 G/DL (6.3-8.2)
--- NOTE | 2017-08-18 10:30 | RAD ---
HISTORY: chest pain COMPARISON: Chest radiographs 07/14/2017. FINDINGS: LUNGS: No active pulmonary disease. PLEURA: No significant pleural effusion identified, no pneumothorax apparent. CARDIOVASCULAR: Normal. OSSEOUS STRUCTURES: No significant abnormalities. VISUALIZED UPPER ABDOMEN: Normal. OTHER FINDINGS: None. IMPRESSION: No interval acute cardiopulmonary disease appreciated.
[2017-08-18] MEDS: Enoxaparin 40 mg Syringe SC SCH (10:51)
--- NOTE | 2017-08-18 11:17 | CARD ---
APPROVED REPORT EKG Measurement Heart [id number] <Conclusion> Sinus bradycardia Possible Left atrial enlargement Left ventricular hypertrophy T wave abnormality, consider lateral ischemia Abnormal ECG
--- NOTE | 2017-08-18 11:22 | CARD ---
APPROVED REPORT EKG Measurement Heart [id number] <Conclusion> Normal sinus rhythm Possible Left atrial enlargement Left ventricular hypertrophy Abnormal ECG
--- NOTE | 2017-08-18 11:24 | HP ---
HISTORY OF PRESENT ILLNESS: Mr. Small is a 61-year-old male who was admitted via the emergency room because of chest pains on the day of admission. He indicates that he had been drinking alcohol and also using cocaine before pain started. He was brought to the emergency room where he was found to have hypertensive urgency and advised workup and therapy. He has a past medical history of hypertension, but has been noncompliant with medications. He also has arthritis, back problems and has been admitted to the hospital in the past because of drug use and chest pains. FAMILY HISTORY: Remarkable for hypertension in both father and mother and lung cancer in mother. SOCIAL HISTORY: Socially he drinks alcohol heavily, also uses cocaine. Smokes half a pack of cigarettes daily. REVIEW OF SYSTEMS: Essentially unremarkable. PHYSICAL EXAMINATION: GENERAL: The patient is alert, oriented, appears to be still in some distress from chest discomfort. The pain is midsternal. VITAL SIGNS: Blood pressure 157/100 with a pulse of 61, respiratory rate is 16. He is febrile. O2 sat 97% on room air. SKIN: Shows fair turgor. HEENT: Pupils equal, reactive to light and accommodation. Mouth shows fair hygiene. JVP flat. LUNGS: Clear. HEART: Regular. No murmurs or gallops appreciated. There is no reproducible chest wall tenderness. ABDOMEN: Soft, nontender, no organomegaly. EXTREMITIES: Show no edema or cyanosis. CENTRAL NERVOUS SYSTEM: Exam is grossly intact. LABORATORY DATA: WBC 6.0, hemoglobin 12.7, platelet count 184,000. Sodium 147, potassium 3.5, BUN of 21, creatinine 1.1, serum glucose of 89. PT 11.4, INR 1.0. Troponin less than 0.012. EKG report, pending. IMPRESSION: 1. Chest pain probably secondary to cocaine and alcohol use. 2. Hypertensive urgency. 3. History of chronic alcoholism. 4. History of chronic drug use. PLAN: Monitor the patient in telemetry. Will obtain Cardiology evaluation, advised to drug use, manage blood pressure appropriately. Further therapy will depend on findings. Ruddy Mercer MD
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
[2017-08-18] MEDS ORDERED: Potassium Chloride 20 mEq ER Tab PO ONE (13:57)
[2017-08-18] MEDS: Sodium Chloride 0.9% 1,000 ML IV SCH (14:49)
[2017-08-18 20:25] VITALS: RESP 18
[2017-08-19] MEDS: Sodium Chloride 0.9% 1,000 ML IV SCH (04:57)
[2017-08-19 08:12] VITALS: BP 147/91; TEMP 98.5; O2SAT 97
--- NOTE | 2017-08-19 09:07 | CP.PCM.PN ---
Subjective - Date & Time of Evaluation Date of Evaluation: 08/19/17 Time of Evaluation: 09:08 - Subjective Subjective: CHEST PAIN FREE TREMORS OF EXTREMITIES RESOLVED ALERT AND ORIENTED X 3 Objective - Vital Signs/Intake and Output Vital Signs (last 24 hours): Temp Pulse Resp BP Pulse Ox 98.5 F 55 L 18 147/91 H 97 08/19/17 08:00 08/19/17 08:00 08/19/17 08:00 08/19/17 08:00 08/19/17 08:00 - Medications Medications: Current Medications Amlodipine Besylate (Norvasc) 10 mg PO DAILY [facility] Last Admin: 08/18/17 14:51 Dose: 10 mg Clonidine HCl (Catapres) 0.1 mg PO Q8 [facility] Last Admin: 08/19/17 00:59 Dose: Not Given Enoxaparin Sodium (Lovenox) 40 mg SC DAILY [facility] PRN Reason: Protocol Last Admin: 08/18/17 10:51 Dose: 40 mg Sodium Chloride (Sodium Chloride 0.9%) 1,000 mls @ 75 mls/hr IV .[id number] [facility] Stop: 08/19/17 13:56 Last Admin: 08/19/17 04:57 Dose: 75 mls/hr Lisinopril (Zestril) 10 mg PO DAILY [facility] Last Admin: 08/18/17 14:52 Dose: 10 mg Lorazepam (Ativan) 1 mg PO Q6 [facility] Last Admin: 08/19/17 04:58 Dose: 1 mg - Labs Labs: 08/18/17 01:35 08/18/17 01:35 PT 11.4 Seconds (9.8-13.1) 08/18/17 01:35 INR 1.0 (0.9-1.2) 08/18/17 01:35 APTT 29.4 Seconds (25.6-37.1) 08/18/17 01:35 - Constitutional Appears: No Acute Distress - Head Exam Head Exam: ATRAUMATIC, NORMAL INSPECTION, NORMOCEPHALIC - Eye Exam Eye Exam: EOMI, Normal appearance, PERRL Pupil Exam: NORMAL ACCOMODATION, PERRL - ENT Exam ENT Exam: Mucous Membranes Moist, Normal Exam - Neck Exam Neck Exam: Full ROM, Normal Inspection. absent: Lymphadenopathy - Respiratory Exam Respiratory Exam: Clear to Ausculation Bilateral, NORMAL BREATHING PATTERN - Cardiovascular Exam Cardiovascular Exam: REGULAR RHYTHM, +S1, +S2. absent: Murmur - GI/Abdominal Exam GI & Abdominal Exam: Soft, Normal Bowel Sounds. absent: Tenderness - Rectal Exam Rectal Exam: NORMAL INSPECTION - Extremities Exam Extremities Exam: Full ROM, Normal Capillary Refill, Normal Inspection. absent : Joint Swelling, Pedal Edema - Back Exam Back Exam: NORMAL INSPECTION - Neurological Exam Neurological Exam: Alert, Awake, CN II-XII Intact, Normal Gait, Oriented x3 - Psychiatric Exam Psychiatric exam: Normal Affect, Normal Mood - Skin Skin Exam: Dry, Intact, Normal Color, Warm Assessment and Plan - Assessment and Plan (Free Text) Assessment: CHEST PAIN RESOLVED MULTISUBSTANCE ABUSE HYPERTENSION--STABLE DRUG WITHDRAWAL--IMPROVED Plan: WILL REVIEW ECHO RESULTS TODAY DISCHARGE HOME IF ECHO IS UNREMARKABLE
[2017-08-19 10:19] VITALS: PULSE 61
[2017-08-19] MEDS: Enoxaparin 40 mg Syringe SC SCH (10:19)
--- NOTE | 2017-08-19 11:39 | CARD ---
APPROVED REPORT EXAM: Two-dimensional and M-mode echocardiogram with Doppler and color Doppler. Other Information Quality : GoodRhythm : NSR INDICATION Hypertension/HCVD 2D DIMENSIONS IVSd1.56 (0.7-1.1cm)LVDd4.67 (3.9-5.9cm) LVOT Diameter2.00 (1.8-2.4cm)PWd1.18 (0.7-1.1cm) IVSs1.93 (0.8-1.2cm)LVDs3.06 (2.5-4.0cm) FS (%) 34.5 %PWs1.62 (0.8-1.2cm) M-Mode DIMENSIONS Left Atrium (MM)5.09 (2.5-4.0cm)IVSd1.47 (0.7-1.1cm) Aortic Root3.76 (2.2-3.7cm)LVDd5.35 (4.0-5.6cm) Aortic Cusp Exc.2.32 (1.5-2.0cm)PWd1.12 (0.7-1.1cm) IVSs1.76 cmFS (%) 43 % LVDs3.03 (2.0-3.8cm)PWs1.97 cm Mitral Valve MV E Onydyzaz08.5cm/sMV DECEL [id number] A Wqusxjce72.4cm/s MV EZU22vtF/A ratio2.0MVA (PHT)2.86cm2 TDI Lateral E' Peak V11.00cm/sMedial E' Peak V6.68cm/sE/Lateral E'5.0 E/Medial E'8.3 Pulmonary Valve PV Peak Hxcguurs27.0cm/s Tricuspid Valve TR Peak Nqlrcssq435jz/sRAP PPXYTGAR38ekRpSX Peak Gr.15mmHg PGMR15ufEc LEFT VENTRICLE The left ventricle is normal size. There is borderline to mild asymmetric left ventricular hypertrophy. The left ventricular function is normal. The left ventricular ejection fraction is 55-60% There is normal LV segmental wall motion. The left ventricular diastolic function is normal. No left ventricle thrombus noted on this study. There is no ventricular septal defect visualized. There is no left ventricular aneurysm. There is no mass noted in the left ventricle. RIGHT VENTRICLE The right ventricle is normal size. There is normal right ventricular wall thickness. The right ventricular systolic function is normal. ATRIA The left atrium size is normal. The right atrium size is normal. The interatrial septum is intact with no evidence for an atrial septal defect. AORTIC VALVE The aortic valve is normal in structure. No aortic regurgitation is present. There is no aortic valvular stenosis. There is no aortic valvular vegetation. MITRAL VALVE The mitral valve is normal in structure. There is no evidence of mitral valve prolapse. There is no mitral valve stenosis. Mitral regurgitation is trace. TRICUSPID VALVE The tricuspid valve is normal in structure. There is no tricuspid valve regurgitation noted. There is no tricuspid valve prolapse or vegetation. There is no tricuspid valve stenosis. PULMONIC VALVE The pulmonary valve is normal in structure. There is no pulmonic valvular regurgitation. There is no pulmonic valvular stenosis. GREAT VESSELS The aortic root is normal in size. The ascending aorta is normal in size. The IVC is normal in size and collapses >50% with inspiration. PERICARDIAL EFFUSION The pericardium appears normal. There is no pleural effusion. <Conclusion> Normal LV systolic function Trace Mitral Regurgitation
--- NOTE | 2017-08-20 10:28 | CP.PCM.DIS ---
Provider - Provider Date of Admission: 08/18/17 21:58 Attending physician: Ruddy Mercer MD Time Spent in preparation of Discharge (in minutes): 30 Diagnosis - Discharge Diagnosis (1) Acute chest pain Status: Acute (2) Cocaine abuse Status: Acute (3) Drug dependence Status: Acute (4) HTN (hypertension) Status: Acute (5) Noncompliance w/medication treatment due to intermit use of medication Status: Acute (6) Polysubstance abuse Status: Acute Hospital Course - Lab Results Lab Results: Most Recent Lab Values WBC 6.0 K/uL (4.8-10.8) 08/18/17 01:35 RBC 4.69 Mil/uL (4.40-5.90) 08/18/17 01:35 Hgb 12.7 g/dL (12.0-18.0) 08/18/17 01:35 Hct 39.7 % (35.0-51.0) 08/18/17 01:35 MCV 84.7 fl (80.0-94.0) 08/18/17 01:35 MCH 27.1 pg (27.0-31.0) 08/18/17 01:35 MCHC 32.0 g/dL (33.0-37.0) L 08/18/17 01:35 RDW 14.5 % (11.5-14.5) 08/18/17 01:35 Plt Count 184 K/uL (130-400) 08/18/17 01:35 MPV 8.9 fl (7.2-11.7) 08/18/17 01:35 Neut % (Auto) 58.9 % (50.0-75.0) 08/18/17 01:35 Lymph % (Auto) 29.5 % (20.0-40.0) 08/18/17 01:35 [place] % (Auto) 9.9 % (0.0-10.0) 08/18/17 01:35 Eos % (Auto) 1.0 % (0.0-4.0) 08/18/17 01:35 Baso % (Auto) 0.7 % (0.0-2.0) 08/18/17 01:35 Neut # 3.5 K/uL (1.8-7.0) 08/18/17 01:35 Lymph # 1.8 K/uL (1.0-4.3) 08/18/17 01:35 [place] # 0.6 K/uL (0.0-0.8) 08/18/17 01:35 Eos # 0.1 K/uL (0.0-0.7) 08/18/17 01:35 Baso # 0.0 K/uL (0.0-0.2) 08/18/17 01:35 PT 11.4 Seconds (9.8-13.1) 08/18/17 01:35 INR 1.0 (0.9-1.2) 08/18/17 01:35 APTT 29.4 Seconds (25.6-37.1) 08/18/17 01:35 Sodium 147 mmol/l (132-148) 08/18/17 01:35 Potassium 3.5 MMOL/L (3.6-5.0) L 08/18/17 01:35 Chloride 105 mmol/L (98-107) 08/18/17 01:35 Carbon Dioxide 26 mmol/L (22-30) 08/18/17 01:35 Anion Gap 20 (10-20) 08/18/17 01:35 BUN 21 mg/dl (9-20) H 08/18/17 01:35 Creatinine 1.1 mg/dL (0.8-1.5) 08/18/17 01:35 Est GFR ( Amer) > 60 08/18/17 01:35 Est GFR (Non-Af Amer) > 60 08/18/17 01:35 Random Glucose 89 mg/dL (75-110) 08/18/17 01:35 Calcium 9.1 mg/dL (8.4-10.2) 08/18/17 01:35 Total Bilirubin 0.3 mg/dl (0.2-1.3) 08/18/17 01:35 AST 37 U/L (17-59) 08/18/17 01:35 ALT 38 U/L (21-72) 08/18/17 01:35 Alkaline Phosphatase 57 U/L (38-126) 08/18/17 01:35 Troponin I < 0.0120 ng/mL (0.00-0.120) 08/18/17 09:40 Total Protein 7.6 G/DL (6.3-8.2) 08/18/17 01:35 Albumin 4.1 g/dL (3.5-5.0) 08/18/17 01:35 Globulin 3.4 gm/dL (2.2-3.9) 08/18/17 01:35 Albumin/Globulin Ratio 1.2 (1.0-2.1) 08/18/17 01:35 Lipase 81 U/L (23-300) 08/18/17 01:45 Urine Color Yellow (YELLOW) 08/18/17 01:45 Urine Clarity Clear (Clear) 08/18/17 01:45 Urine pH 6.0 (5.0-8.0) 08/18/17 01:45 Ur Specific [place] 1.020 (1.003-1.030) 08/18/17 01:45 Urine Protein 30 mg/dL (NEGATIVE) 08/18/17 01:45 Urine Glucose (UA) Neg mg/dL (Normal) 08/18/17 01:45 Urine Ketones Negative mg/dL (NEGATIVE) 08/18/17 01:45 Urine Blood Small (NEGATIVE) 08/18/17 01:45 Urine Nitrate Negative (NEGATIVE) 08/18/17 01:45 Urine Bilirubin Negative (NEGATIVE) 08/18/17 01:45 Urine Urobilinogen 0.2-1.0 mg/dL (0.2-1.0) 08/18/17 01:45 Ur Leukocyte Esterase Neg [place]iliam/uL (Negative) 08/18/17 01:45 Urine RBC (Auto) 1 /hpf (0-3) 08/18/17 01:45 Urine Microscopic WBC 1 /hpf (0-5) 08/18/17 01:45 Ur Squamous Epith Cells < 1 /hpf (0-5) 08/18/17 01:45 Urine Opiates Screen Positive (NEGATIVE) H 08/18/17 01:58 Urine Methadone Screen Negative (NEGATIVE) 08/18/17 01:58 Ur Barbiturates Screen Negative (NEGATIVE) 08/18/17 01:58 Ur Phencyclidine Scrn Negative (NEGATIVE) 08/18/17 01:58 Ur Amphetamines Screen Negative (NEGATIVE) 08/18/17 01:58 U Benzodiazepines Scrn Negative (NEGATIVE) 08/18/17 01:58 U Oth Cocaine Metabols Positive (NEGATIVE) H 08/18/17 01:58 U Cannabinoids Screen Positive (NEGATIVE) H 08/18/17 01:58 Alcohol, Quantitative 53 mg/dl (0-10) H 08/18/17 01:45 - Hospital Course Hospital Course: CHEST PAIN RESOLVED Discharge Exam - Head Exam Head Exam: ATRAUMATIC, NORMAL INSPECTION, NORMOCEPHALIC - Eye Exam Eye Exam: EOMI, Normal appearance, PERRL Pupil Exam: NORMAL ACCOMODATION, PERRL - GI/Abdominal Exam GI & Abdominal Exam: Normal Bowel Sounds - Rectal Exam Rectal Exam: NORMAL INSPECTION - Neurological Exam Neurological exam: Alert, CN II-XII Intact, Normal Gait, Oriented x3, Reflexes Normal - Psychiatric Exam Psychiatric exam: Normal Affect, Normal Mood - Skin Skin Exam: Dry, Intact, Normal Color, Warm Discharge Plan - Follow Up Plan Condition: STABLE Disposition: AGAINST MEDICAL ADVICE Patient education suggested?: Yes Additional Instructions: PT SIGNED OUT AMA
== END 2017-08-19 12:00 | disposition left against medical advice (07) | DRG 449 ==
LOC: H.ER 00:53 → H.ERHOLD 03:13 → H.TEL 13:16 → OBSVTOIN 21:58
PROVIDERS: ADMIT Internal Medicine Pulmonary Disease; ATTEND Internal Medicine Pulmonary Disease
DX: T40.5X1A Poisoning by cocaine, accidental (unintentional), initial encounter (principal); F14.10 Cocaine abuse, uncomplicated; F19.239 Other psychoactive substance dependence with withdrawal, unspecified; F10.10 Alcohol abuse, uncomplicated; R07.9 Chest pain, unspecified; T51.0X1A Toxic effect of ethanol, accidental (unintentional), initial encounter; I16.0 Hypertensive urgency; Y90.2 Blood alcohol level of 40-59 mg/100 ml; F17.210 Nicotine dependence, cigarettes, uncomplicated; Z91.14 Patient's other noncompliance with medication regimen; G89.29 Other chronic pain; M06.9 Rheumatoid arthritis, unspecified; M19.90 Unspecified osteoarthritis, unspecified site; F19.10 Other psychoactive substance abuse, uncomplicated

== ENCOUNTER 2017-09-13 02:18 | Emergency (ER) | payer OTHER ==
[2017-09-13 02:18] VITALS: BMI 22.6
[2017-09-13 02:55] LABS: BASO # 0.1 K/uL (0.0-0.2); BASO % 1.2 % (0.0-2.0); EOS # 0.1 K/uL (0.0-0.7); EOS % 0.9 % (0.0-4.0); HEMATOCRIT 41.3 % (35.0-51.0); LYMPH # 1.3 K/uL (1.0-4.3); LYMPH % 20.4 % (20.0-40.0); MEAN CELL VOLUME 86.1 fl (80.0-94.0); MEAN CORPUSCULAR HEMOGLOBIN 27.5 pg (27.0-31.0); MEAN PLATELET VOLUME 9.2 fl (7.2-11.7); MONO # 0.5 K/uL (0.0-0.8); MONO % 8.8 % (0.0-10.0); NEUT # 4.2 K/uL (1.8-7.0); NEUT % 68.7 % (50.0-75.0); NRBC % 0.1 % (0.0-0.0); RED CELL DISTRIBUTION WIDTH 14.8 % (11.5-14.5); WHITE BLOOD COUNT 6.1 K/uL (4.8-10.8)
[2017-09-13 03:07] LABS: PARTIAL THROMBOPLASTIN TIME 30.6 Seconds (25.6-37.1)
--- NOTE | 2017-09-13 03:07 | ED PDOC ---
HPI: Chest Pain Time Seen by Provider: 09/13/17 02:33 Chief Complaint (Nursing): Chest Pain Chief Complaint (Provider): chest pain History Per: Patient History/Exam Limitations: no limitations Onset/Duration Of Symptoms: Hrs (3) Current Symptoms Are (Timing): Intermittent Episodes Severity: Mild Pain Scale Rating Of: 2 Quality: Pressure Alleviating Factors: None - Risk Factors TAD Risk Factors: Pos: Hypertension Past Medical History Reviewed: Historical Data, Nursing Documentation, Vital Signs Vital Signs: Last Vital Signs Temp 97.3 F L 09/13/17 02:23 Pulse 72 09/13/17 04:35 Resp 16 09/13/17 04:35 BP 156/82 H 09/13/17 04:35 Pulse Ox 97 09/13/17 04:35 - Medical History PMH: Anemia, Arthritis, Back Problems, HTN, Rheumatoid Arthritis, Chronic Pain Denies: Diabetes, Hepatitis, HIV, Chronic Kidney Disease, Seizures, Sexually Transmitted Disease - Surgical History Surgical History: No Surg Hx - Family History Family History: States: Unknown Family Hx, Hypertension - Living Arrangements Living Arrangements: Alone - Social History Current smoker - smoking cessation education provided: Yes Alcohol: Occasional Drugs: Cocaine - Immunization History Hx Tetanus Toxoid Vaccination: No Hx Influenza Vaccination: Yes Hx Pneumococcal Vaccination: Yes - Home Medications Home Medications: Ambulatory Orders Medication Instructions Recorded Lisinopril [Zestril] 5 mg PO DAILY #30 tab 01/24/17 amLODIPine [Norvasc] 5 mg PO DAILY #30 tab 01/24/17 cloNIDine [Catapres] 0.3 mg PO Q8 07/14/17 - Allergies Allergies/Adverse Reactions: Allergies Allergy/AdvReac Type Severity Reaction Status Date / Time No Known Allergies Allergy Verified 01/25/17 17:11 Review of Systems ROS Statement: Except As Marked, All Systems Reviewed And Found Negative Cardiovascular: Positive for: Chest Pain Respiratory: Positive for: Shortness of Breath Physical Exam - Reviewed Nursing Documentation Reviewed: Yes Vital Signs Reviewed: Yes - Physical Exam Appears: Positive for: Well, Non-toxic Head Exam: Positive for: ATRAUMATIC, NORMOCEPHALIC Skin: Positive for: Normal Color, Warm, Dry Eye Exam: Positive for: Normal appearance, EOMI, PERRL ENT: Positive for: Normal ENT Inspection Neck: Positive for: Normal, Painless ROM, Supple Cardiovascular/Chest: Positive for: Regular Rate, Rhythm Respiratory: Positive for: Normal Breath Sounds. Negative for: Crackles, Rales , Wheezing Gastrointestinal/Abdominal: Positive for: Normal Exam, Bowel Sounds, Soft. Negative for: Tenderness Back: Positive for: Normal Inspection. Negative for: L CVA Tenderness, R CVA Tenderness Extremity: Positive for: Normal ROM. Negative for: Tenderness, Pedal Edema Neurologic/Psych: Positive for: Alert, Oriented. Negative for: Motor/Sensory Deficits - Laboratory Results Result Diagrams: 09/13/17 02:45 09/13/17 02:45 - ECG O2 Sat by Pulse Oximetry: 100 Medical Decision Making Medical Decision Makin yo male with chest pain and hx cocaine abuse Labs, EKG, Chest Xray ordered ASA ordered Patient requesting cocaine detox; currently denies that he had chest pain and is only interested in detox. Crisis eval ordered At 7AM pt awaiting completion of crisis eval for detox bed at [facility] Patient s/o to Dr Barbosa Disposition - Clinical Impression Clinical Impression: Cocaine abuse, Cocaine dependence - Disposition Disposition: Transfer of Care Disposition Time: 07:00 Condition: STABLE Additional Instructions: Please present at [facility] detox unit upon discharge for admission Instructions: Cocaine Abuse (ED) Forms: [employer] (Dutch)
[2017-09-13 03:17] LABS: ALB/GLOB RATIO 1.2 (1.0-2.1); ALCOHOL SERUM 80 mg/dl (0-10); ALKALINE PHOSPHATASE 42 U/L (38-126); ALT/SGPT 32 U/L (21-72); AST/SGOT 36 U/L (17-59); BILIRUBIN,TOTAL 0.4 mg/dl (0.2-1.3); BLOOD UREA NITROGEN 17 mg/dl (9-20); CALCIUM 9.5 mg/dL (8.4-10.2); CARBON DIOXIDE 28 mmol/L (22-30); CHLORIDE 105 mmol/L (98-107); GFR AFRICAN-AMERICAN > 60; GLUCOSE,RANDOM 125 mg/dL (75-110); POTASSIUM 3.6 MMOL/L (3.6-5.0); SODIUM 144 mmol/l (132-148); TOTAL PROTEIN 7.6 G/DL (6.3-8.2)
--- NOTE | 2017-09-13 07:30 | ED PDOC ---
- Laboratory Results Result Diagrams: 09/13/17 02:45 09/13/17 02:45 - ECG Interpretation Of ECG: NSR @ 61, nonspecific ST abnormality. O2 Sat by Pulse Oximetry: 100 Pulse Ox Interpretation: Normal - Radiology X-Ray: Interpreted by Me X-Ray Interpretation: No Acute Disease Medical Decision Making Medical Decision Making: Patient signed out to me by Dr. Lucas Billings MD pending detox referral. Reassess --12:27 Patient is resting comfortably still waiting for possible transfer to [facility] for detox. MEDICAL CLEARANCE: Pt medically cleared for psychiatric evaluation. Scribe Attestation: Documented by Fran Lakhani acting as a scribe for Juana Barbosa MD. Provider Attestation: All medical record entries made by the Scribe were at my direction and personally dictated by me. I have reviewed the chart and agree that the record accurately reflects my personal performance of the history, physical exam, medical decision making, and the department course for this patient. I have also personally directed, reviewed, and agree with the discharge instructions and disposition. Disposition - Clinical Impression Clinical Impression: Cocaine abuse, Cocaine dependence - POA Present On Arrival: None - Disposition Disposition: Other Institution ([facility] Disposition Time: 12:40 Condition: STABLE
--- NOTE | 2017-09-13 08:45 | RAD ---
HISTORY: chest pain COMPARISON: No prior. FINDINGS: LUNGS: No active pulmonary disease. PLEURA: No significant pleural effusion identified, no pneumothorax apparent. CARDIOVASCULAR: Normal. Atherosclerotic aorta. OSSEOUS STRUCTURES: No significant abnormalities. VISUALIZED UPPER ABDOMEN: Normal. OTHER FINDINGS: None. IMPRESSION: No active disease.
--- NOTE | 2017-09-13 08:50 | CARD ---
APPROVED REPORT EKG Measurement Heart [id number] <Conclusion> Normal sinus rhythm Voltage criteria for left ventricular hypertrophy Nonspecific ST abnormality Abnormal ECG
[2017-09-13 12:01] VITALS: TEMP 97.6
[2017-09-13 13:48] VITALS: BP 160/94; PULSE 62; RESP 17
[2017-09-14 14:10] VITALS: O2SAT 100
== END 2017-09-13 13:48 | disposition short-term general hospital (02) ==
LOC: H.ER 02:18
DX: F14.20 Cocaine dependence, uncomplicated (principal); F17.200 Nicotine dependence, unspecified, uncomplicated; G89.29 Other chronic pain; I10 Essential (primary) hypertension; M06.9 Rheumatoid arthritis, unspecified

== ENCOUNTER 2017-09-29 14:20 | Emergency (ER) | payer OTHER ==
[2017-09-29 14:20] VITALS: BMI 22.6
[2017-09-29 14:31] VITALS: TEMP 97.6
--- NOTE | 2017-09-29 15:37 | ED PDOC ---
HPI: Chest Pain Time Seen by Provider: 09/29/17 14:58 Chief Complaint (Nursing): Headache Chief Complaint (Provider): Dizziness, Chest Pain and Headache History Per: Patient History/Exam Limitations: no limitations Onset/Duration Of Symptoms: Hrs (x3 hours ago) Current Symptoms Are (Timing): Still Present Severity: Mild Quality: "Pain" Associated Symptoms: denies: Nausea, Dyspnea Modifying Factors: None (Cocaine use) Exacerbating Factors: None Alleviating Factors: None Additional Complaint(s): 61 year old male with a past medical history of high blood pressure, cocaine abuse and psychiatric disorder presents to the ED complaining of dizziness, headache, chest pain and shortness of breath which began about 3 hours ago. The patient states that he was laying down when the chest pain began and describes it as mild. He reports that the headache is not thunder clap and it is not the worst headache of his life. Denies Homicidal ideation and Suicidal ideation. Of note: Patient admits to using three bags of cocaine last night. Past Medical History Reviewed: Historical Data, Nursing Documentation, Vital Signs Vital Signs: Last Vital Signs Temp 97.6 F 09/29/17 14:28 Pulse 88 09/29/17 17:45 Resp 14 09/29/17 17:00 BP 166/82 H 09/29/17 17:45 Pulse Ox 100 09/29/17 17:00 - Medical History PMH: Anemia, Arthritis, Back Problems, HTN, Rheumatoid Arthritis, Chronic Pain Denies: Diabetes, Hepatitis, HIV, Chronic Kidney Disease, Seizures, Sexually Transmitted Disease - Surgical History Surgical History: No Surg Hx - Family History Family History: States: Unknown Family Hx, Hypertension - Social History Current smoker - smoking cessation education provided: No Ex-Smoker (has not smoked in the last 12 months): No Alcohol: None Drugs: Cocaine - Immunization History Hx Tetanus Toxoid Vaccination: No Hx Influenza Vaccination: Yes Hx Pneumococcal Vaccination: Yes - Home Medications Home Medications: Ambulatory Orders Medication Instructions Recorded Lisinopril [Zestril] 5 mg PO DAILY #30 tab 01/24/17 amLODIPine [Norvasc] 5 mg PO DAILY #30 tab 01/24/17 cloNIDine [Catapres] 0.3 mg PO Q8 07/14/17 QUEtiapine [Seroquel] 100 mg PO HS #30 tab 12/14/17 amLODIPine [Norvasc] 5 mg PO DAILY #30 tab 09/18/17 traZODone [Desyrel] 100 mg PO HS PRN #30 tab 09/18/17 - Allergies Allergies/Adverse Reactions: Allergies Allergy/AdvReac Type Severity Reaction Status Date / Time No Known Allergies Allergy Verified 01/25/17 17:11 Review of Systems ROS Statement: Except As Marked, All Systems Reviewed And Found Negative Cardiovascular: Positive for: Chest Pain Respiratory: Positive for: Shortness of Breath Neurological: Positive for: Headache, Dizziness Psych: Positive for: Suicidal ideation Physical Exam - Reviewed Nursing Documentation Reviewed: Yes Vital Signs Reviewed: Yes - Physical Exam Appears: Positive for: Non-toxic, No Acute Distress Head Exam: Positive for: ATRAUMATIC, NORMAL INSPECTION, NORMOCEPHALIC Skin: Positive for: Normal Color, Warm, Dry. Negative for: Rash Eye Exam: Positive for: Normal appearance, EOMI, PERRL. Negative for: Nystagmus ENT: Positive for: Normal ENT Inspection. Negative for: Nasal Congestion, Tonsillar Exudate, Tonsillar Swelling Neck: Positive for: Normal, Painless ROM, Supple Cardiovascular/Chest: Positive for: Regular Rate, Rhythm, Chest Non Tender. Negative for: Tachycardia Respiratory: Positive for: Normal Breath Sounds. Negative for: Wheezing, Respiratory Distress Gastrointestinal/Abdominal: Positive for: Normal Exam, Bowel Sounds, Soft. Negative for: Tenderness, Guarding, Rebound Back: Positive for: Normal Inspection. Negative for: L CVA Tenderness, R CVA Tenderness, Muscle Spasm Extremity: Positive for: Normal ROM. Negative for: Tenderness, Deformity, Swelling Neurologic/Psych: Positive for: Alert, Oriented, Gait - Laboratory Results Result Diagrams: 09/29/17 15:47 09/29/17 15:47 - ECG O2 Sat by Pulse Oximetry: 98 (RA) Pulse Ox Interpretation: Normal Medical Decision Making Medical Decision Makin Initial Impression 61 y/o male presenting with cocaine induces chest pain Initial plan: * EKG * Alcohol Serum * B-type Natriuretic * BMP * Drug Screen * Troponin * CBC * Partial Thromboplastin * Prothrombin Time * Chest x-ray * Toradol 15mg IVP * Reevaluation 6PM After 2 negative trops and clonidine po, pt. BP improving, symptoms improving. Safe for discharge. Todl to return for worsening CP, SOB, or other concerning sympotms. Documented by Liz Verdugo acting as a scribe for Neftali Viera MD. All medical record entries made by the Scribe were at my direction and personally dictated by me. I have reviewed the chart and agree that the record accurately reflects my personal performance of the history, physical exam, medical decision making, and the department course for this patient. I have also personally directed, reviewed, and agree with the discharge instructions and disposition. Disposition - Clinical Impression Clinical Impression: Cocaine abuse, Chest pain - Patient ED Disposition Is Patient to be Admitted: No - Disposition Referrals: [facility] [Outside] Disposition Time: 18:00 Condition: STABLE Instructions: Chest Pain (ED), Cocaine Abuse (ED) Forms: [employer] (Frisian)
[2017-09-29 15:54] LABS: BASO % 0.5 % (0.0-2.0); EOS % 0.2 % (0.0-4.0); HEMATOCRIT 41.5 % (35.0-51.0); LYMPH # 1.1 K/uL (1.0-4.3); LYMPH % 15.4 % (20.0-40.0); MEAN CELL VOLUME 85.1 fl (80.0-94.0); MEAN CORPUSCULAR HEMOGLOBIN 27.2 pg (27.0-31.0); MONO # 0.6 K/uL (0.0-0.8); MONO % 8.7 % (0.0-10.0); NEUT # 5.3 K/uL (1.8-7.0); NEUT % 75.2 % (50.0-75.0); NRBC % 0.1 % (0.0-0.0); RED CELL DISTRIBUTION WIDTH 14.6 % (11.5-14.5)
[2017-09-29 15:59] LABS: PARTIAL THROMBOPLASTIN TIME 28.9 Seconds (25.6-37.1)
--- NOTE | 2017-09-29 16:02 | RAD ---
HISTORY: cp, sob, cocaine use COMPARISON: Chest radiograph dated 09/13/2017. TECHNIQUE: Chest PA and lateral FINDINGS: LUNGS: No active pulmonary disease. PLEURA: No significant pleural effusion identified. No pneumothorax apparent. CARDIOVASCULAR: Normal. OSSEOUS STRUCTURES: Unchanged. Lower thoracic and upper lumbar vertebral compression deformities redemonstrated. VISUALIZED UPPER ABDOMEN: Bilateral upper quadrant surgical clips redemonstrated. OTHER FINDINGS: None. IMPRESSION: No active disease.
[2017-09-29 16:09] LABS: ALCOHOL SERUM < 10 mg/dl (0-10); BLOOD UREA NITROGEN 26 mg/dl (9-20); CALCIUM 9.2 mg/dL (8.4-10.2); CARBON DIOXIDE 26 mmol/L (22-30); CHLORIDE 99 mmol/L (98-107); GFR AFRICAN-AMERICAN > 60; GLUCOSE,RANDOM 120 mg/dL (75-110); POTASSIUM 3.8 MMOL/L (3.6-5.0); SODIUM 138 mmol/l (132-148)
[2017-09-29 17:23] VITALS: RESP 14
[2017-09-29 18:22] VITALS: BP 166/82; PULSE 88
[2017-09-29 22:30] VITALS: O2SAT 98
--- NOTE | 2017-09-30 08:05 | CARD ---
APPROVED REPORT EKG Measurement Heart [id number] WI [id number] [id number] <Conclusion> Normal sinus rhythm Possible Left atrial enlargement Left ventricular hypertrophy Nonspecific T wave abnormality Prolonged QT Abnormal ECG
== END 2017-09-29 18:18 | disposition home or self-care (01) ==
LOC: H.ER 14:20
DX: F14.10 Cocaine abuse, uncomplicated (principal); R07.89 Other chest pain; G89.29 Other chronic pain; I10 Essential (primary) hypertension; M06.9 Rheumatoid arthritis, unspecified; Z87.891 Personal history of nicotine dependence
CPT/HCPCS: 71020; 80048; 80320; 83880; 84484; 85025; 85610; 85730; 93005; 96374; 99284; J1885

== ENCOUNTER 2017-09-29 20:05 | Inpatient (IN) | payer OTHER ==
[2017-09-29 20:05] VITALS: BMI 22.6
--- NOTE | 2017-09-29 21:29 | ED PDOC ---
HPI: Chest Pain Time Seen by Provider: 09/29/17 20:25 Chief Complaint (Nursing): Chest Pain Chief Complaint (Provider): Chest Pain History Per: Patient History/Exam Limitations: no limitations Additional Complaint(s): 61 y/o male returns back to the emergency department for chest pain. Patient was seen earlier in this facility for chest pain and hypertension and was discharged home after symptoms had resolved. Reports he went home and started watching television when he continued to have chest pain again. Past Medical History Reviewed: Historical Data Vital Signs: Last Vital Signs Temp 98.4 F 09/29/17 23:49 Pulse 52 L 09/29/17 23:49 Resp 18 09/29/17 23:49 BP 118/64 09/29/17 23:49 Pulse Ox 95 09/29/17 23:49 - Medical History PMH: Anemia, Arthritis, Back Problems, HTN, Rheumatoid Arthritis, Chronic Pain Denies: Diabetes, Hepatitis, HIV, Chronic Kidney Disease, Seizures, Sexually Transmitted Disease - Family History Family History: States: Unknown Family Hx, Hypertension - Immunization History Hx Tetanus Toxoid Vaccination: No Hx Influenza Vaccination: Yes Hx Pneumococcal Vaccination: Yes - Home Medications Home Medications: Ambulatory Orders Medication Instructions Recorded Lisinopril [Zestril] 5 mg PO DAILY #30 tab 01/24/17 amLODIPine [Norvasc] 5 mg PO DAILY #30 tab 01/24/17 cloNIDine [Catapres] 0.3 mg PO Q8 07/14/17 QUEtiapine [Seroquel] 100 mg PO HS #30 tab 09/18/17 amLODIPine [Norvasc] 5 mg PO DAILY #30 tab 09/18/17 traZODone [Desyrel] 100 mg PO HS PRN #30 tab 09/18/17 - Allergies Allergies/Adverse Reactions: Allergies Allergy/AdvReac Type Severity Reaction Status Date / Time No Known Allergies Allergy Verified 01/25/17 17:11 Review of Systems ROS Statement: Except As Marked, All Systems Reviewed And Found Negative (As per HPI, otherwise negative) Cardiovascular: Positive for: Chest Pain Physical Exam - Reviewed Nursing Documentation Reviewed: Yes Vital Signs Reviewed: Yes - Physical Exam Appears: Positive for: Non-toxic, No Acute Distress Head Exam: Positive for: ATRAUMATIC, NORMAL INSPECTION, NORMOCEPHALIC Skin: Positive for: Normal Color, Warm, Dry Cardiovascular/Chest: Positive for: Regular Rate, Rhythm. Negative for: Murmur Respiratory: Positive for: Normal Breath Sounds. Negative for: Accessory Muscle Use, Respiratory Distress Gastrointestinal/Abdominal: Positive for: Normal Exam, Soft. Negative for: Tenderness Extremity: Positive for: Normal ROM. Negative for: Pedal Edema Neurologic/Psych: Positive for: Alert, Oriented (x3) - ECG O2 Sat by Pulse Oximetry: 98 (RA) Pulse Ox Interpretation: Normal Medical Decision Making Medical Decision Making: Time: 2031 Initial Impression: Hypertension and chest pain (requires admission) Initial Plan: --Aspirin 162 mg PO --Carapres 0.2 mg PO --Admit to hospital routine: As observation in telemetry for hypertensive urgency and chest pain under the care of Dr. Holly Aguirre MD Scribe~Attestation: Documented by Aleida Padilla, acting as a scribe for Neftali Viera MD. Provider Scribe~Attestation: All medical record entries made by the Scribe were at my direction and personally dictated by me. I have reviewed the chart and agree that the record accurately reflects my personal performance of the history, physical exam, medical decision making, and the department course for this patient. I have also personally directed, reviewed, and agree with the discharge instructions and disposition. Disposition - Clinical Impression Clinical Impression: Chest pain - Disposition Disposition Time: 20:32 Condition: STABLE
[2017-09-30 05:47] LABS: BASO % 0.6 % (0.0-2.0); EOS # 0.1 K/uL (0.0-0.7); EOS % 0.9 % (0.0-4.0); HEMOGLOBIN 12.5 g/dL (12.0-18.0); LYMPH # 1.8 K/uL (1.0-4.3); LYMPH % 28.6 % (20.0-40.0); MEAN CELL VOLUME 85.5 fl (80.0-94.0); MEAN CORPUSCULAR HEMOGLOBIN 27.3 pg (27.0-31.0); MEAN CORPUSCULAR HGB CONC 31.9 g/dL (33.0-37.0); MEAN PLATELET VOLUME 9.2 fl (7.2-11.7); MONO # 0.6 K/uL (0.0-0.8); MONO % 9.3 % (0.0-10.0); NEUT # 3.9 K/uL (1.8-7.0); NEUT % 60.6 % (50.0-75.0); RBC 4.57 Mil/uL (4.40-5.90); RED CELL DISTRIBUTION WIDTH 14.8 % (11.5-14.5); WHITE BLOOD COUNT 6.4 K/uL (4.8-10.8)
[2017-09-30 06:31] LABS: BLOOD UREA NITROGEN 29 mg/dl (9-20); CALCIUM 8.9 mg/dL (8.4-10.2); GFR AFRICAN-AMERICAN > 60; GFR NON-AFRICAN AMERICAN 56
[2017-09-30] MEDS: Enoxaparin 40 mg Syringe SC SCH (08:54)
[2017-09-30 16:06] LABS: BARBITURATES, UR NEGATIVE (NEGATIVE); BENZODIAZEPINES, UR NEGATIVE (NEGATIVE); PHENCYCLIDINE, UR NEGATIVE (NEGATIVE)
[2017-09-30 16:21] LABS: OPIATES, UR POSITIVE (NEGATIVE)
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
--- NOTE | 2017-09-30 17:41 | CARD ---
APPROVED REPORT EKG Measurement Heart [id number] WI [id number] <Conclusion> Normal sinus rhythm Voltage criteria for left ventricular hypertrophy Abnormal ECG
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
[2017-10-01 06:19] LABS: HDL CHOLESTEROL 49 MG/DL (30-70)
[2017-10-01 06:29] LABS: LDL CHOLESTEROL 54 mg/dL (0-129)
[2017-10-01] MEDS: Enoxaparin 40 mg Syringe SC SCH (10:18)
--- NOTE | 2017-10-01 10:30 | RAD ---
HISTORY: Chest pain COMPARISON: 09/29/2017, 09/13/2017 and 08/18/2017 TECHNIQUE: Chest PA and lateral FINDINGS: LUNGS: No consolidation. Tiny 2 mm granuloma lateral right lung mid-lower lung zone PLEURA: No significant pleural effusion identified. No pneumothorax apparent. CARDIOVASCULAR: Normal heart size -tortuous thoracic aorta-similar OSSEOUS STRUCTURES: Unchanged. Lower thoracic and upper lumbar vertebral compression deformities redemonstrated VISUALIZED UPPER ABDOMEN: Surgical clips left upper quadrant and probably cystectomy right upper quadrant OTHER FINDINGS: None. IMPRESSION: No active disease.
--- NOTE | 2017-10-01 11:40 | CP.PCM.PN ---
<Naye Garza - Last Filed: 10/01/17 14:15> Subjective - Date & Time of Evaluation Date of Evaluation: 10/01/17 Time of Evaluation: 11:38 - Subjective Subjective: PGY2 progress note for cardiology, Dr. Burch Pt seen and exmained at bedside. No acute events overnight. Pt still complaining of chest pain, stabbing in nature located left side of chest 5/10 in severity. Denies having any SOB, N/V/D/C, abd pain, cough. Cp does change with position. 12 point ROS negative except for the above mentioned. Objective - Vital Signs/Intake and Output Vital Signs (last 24 hours): Temp Pulse Resp BP Pulse Ox 98.4 F 53 L 18 130/78 96 10/01/17 08:00 10/01/17 10:26 10/01/17 08:00 10/01/17 10:24 10/01/17 08:00 - Medications Medications: Current Medications Amlodipine Besylate (Norvasc) 5 mg PO DAILY [facility] Last Admin: 10/01/17 10:25 Dose: Not Given Clonidine HCl (Catapres) 0.2 mg PO TID [facility] Last Admin: 10/01/17 10:26 Dose: Not Given Enoxaparin Sodium (Lovenox) 40 mg SC DAILY [facility] PRN Reason: Protocol Last Admin: 10/01/17 10:18 Dose: 40 mg Lisinopril (Zestril) 5 mg PO DAILY [facility] Last Admin: 10/01/17 10:24 Dose: Not Given Quetiapine Fumarate (Seroquel) 100 mg PO HS [facility] Last Admin: 09/30/17 22:38 Dose: 100 mg Trazodone HCl (Desyrel) 100 mg PO HS PRN PRN Reason: Insomnia - Labs Labs: 09/30/17 04:20 09/30/17 04:20 - Constitutional Appears: Non-toxic, No Acute Distress - Head Exam Head Exam: ATRAUMATIC - ENT Exam ENT Exam: Mucous Membranes Moist - Respiratory Exam Respiratory Exam: Clear to Ausculation Bilateral. absent: Accessory Muscle Use , Rales, Rhonchi, Wheezes, Respiratory Distress - Cardiovascular Exam Cardiovascular Exam: REGULAR RHYTHM, +S1, +S2. absent: Gallop, Rubs, Murmur - GI/Abdominal Exam GI & Abdominal Exam: Soft, Normal Bowel Sounds. absent: Distended, Firm, Guarding, Rigid, Tenderness, Organomegaly - Extremities Exam Extremities Exam: absent: Pedal Edema, Tenderness - Neurological Exam Neurological Exam: Alert, Awake, Oriented x3 - Psychiatric Exam Psychiatric exam: Normal Affect, Normal Mood - Skin Skin Exam: Dry, Intact, Normal Color, Warm Assessment and Plan - Assessment and Plan (Free Text) Assessment: (1) Chest pain BIANCA x 3 negative Stress test today avoid BB due to active cocaine use cont clonidine for now (2) Chronic back pain pain management per primary care team (3) Cocaine abuse Discussed risks of cocaine abuse and recommended to avoid use (4) HTN (hypertension) cont with norvasc, clonidinen and lisinopril for now Continue to monitor VS Will discuss case with attending, Dr. Burch <Sergei Burch - Last Filed: 10/01/17 15:36> Objective - Vital Signs/Intake and Output Vital Signs (last 24 hours): Temp Pulse Resp BP Pulse Ox 98.2 F 67 18 154/85 H 97 10/01/17 14:07 10/01/17 14:10 10/01/17 11:57 10/01/17 14:10 10/01/17 11:57 - Medications Medications: Current Medications Amlodipine Besylate (Norvasc) 5 mg PO DAILY [facility] Last Admin: 10/01/17 10:25 Dose: Not Given Clonidine HCl (Catapres) 0.2 mg PO TID [facility] Last Admin: 10/01/17 14:10 Dose: 0.2 mg Enoxaparin Sodium (Lovenox) 40 mg SC DAILY [facility] PRN Reason: Protocol Last Admin: 10/01/17 10:18 Dose: 40 mg Lisinopril (Zestril) 5 mg PO DAILY [facility] Last Admin: 10/01/17 10:24 Dose: Not Given Quetiapine Fumarate (Seroquel) 100 mg PO HS [facility] Last Admin: 09/30/17 22:38 Dose: 100 mg Trazodone HCl (Desyrel) 100 mg PO HS PRN PRN Reason: Insomnia - Labs Labs: 09/30/17 04:20 09/30/17 04:20 Assessment and Plan (1) Chest pain Status: Acute (2) Chronic back pain Status: Acute (3) Cocaine abuse Status: Acute (4) HTN (hypertension) Status: Acute Attending/Attestation - Attestation I have personally seen and examined this patient.: Yes I have fully participated in the care of the patient.: Yes I have reviewed all pertinent clinical information, including history, physical exam and plan: Yes
--- NOTE | 2017-10-01 23:44 | CP.PCM.PN ---
Subjective - Date & Time of Evaluation Date of Evaluation: 10/01/17 Time of Evaluation: 13:20 Objective - Vital Signs/Intake and Output Vital Signs (last 24 hours): Temp Pulse Resp BP Pulse Ox 98.5 F 59 L 20 147/87 98 10/01/17 19:29 10/01/17 19:29 10/01/17 19:29 10/01/17 19:29 10/01/17 19:29 Intake and Output: 10/01/17 10/02/17 18:59 06:59 Intake Total 700 Output Total 800 Balance -100 - Medications Medications: Current Medications Amlodipine Besylate (Norvasc) 5 mg PO DAILY [facility] Last Admin: 10/01/17 10:25 Dose: Not Given Clonidine HCl (Catapres) 0.2 mg PO TID [facility] Last Admin: 10/01/17 18:36 Dose: 0.2 mg Enoxaparin Sodium (Lovenox) 40 mg SC DAILY [facility] PRN Reason: Protocol Last Admin: 10/01/17 10:18 Dose: 40 mg Lisinopril (Zestril) 5 mg PO DAILY [facility] Last Admin: 10/01/17 10:24 Dose: Not Given Quetiapine Fumarate (Seroquel) 100 mg PO HS [facility] Last Admin: 10/01/17 22:41 Dose: 100 mg Trazodone HCl (Desyrel) 100 mg PO HS PRN PRN Reason: Insomnia - Labs Labs: 09/30/17 04:20 09/30/17 04:20 Assessment and Plan (1) Hypertensive urgency Status: Acute (2) Chest pain Status: Acute
[2017-10-02 06:02] VITALS: O2SAT 96
[2017-10-02 06:50] LABS: HEMOGLOBIN 13.9 g/dL (12.0-18.0); MEAN CELL VOLUME 85.1 fl (80.0-94.0); MEAN CORPUSCULAR HEMOGLOBIN 27.5 pg (27.0-31.0); MEAN CORPUSCULAR HGB CONC 32.3 g/dL (33.0-37.0); RBC 5.04 Mil/uL (4.40-5.90); RED CELL DISTRIBUTION WIDTH 14.6 % (11.5-14.5); WHITE BLOOD COUNT 4.7 K/uL (4.8-10.8)
[2017-10-02 07:04] LABS: ALB/GLOB RATIO 1.2 (1.0-2.1); ALBUMIN 4.1 g/dL (3.5-5.0); ALT/SGPT 35 U/L (21-72); AST/SGOT 24 U/L (17-59); BLOOD UREA NITROGEN 19 mg/dl (9-20); CALCIUM 9.5 mg/dL (8.4-10.2); GFR AFRICAN-AMERICAN > 60; GFR NON-AFRICAN AMERICAN > 60
[2017-10-02 08:09] VITALS: BP 146/86; PULSE 62; RESP 20; TEMP 98.6
--- NOTE | 2017-10-02 08:57 | CP.PCM.PN ---
<Naye Garza - Last Filed: 10/02/17 08:52> Subjective - Date & Time of Evaluation Date of Evaluation: 10/02/17 Time of Evaluation: 08:53 - Subjective Subjective: PGY 2 progress note for cardiology, Dr. Burch Pt seen and examined at bedside. No acute events overnight. Pt states that he uses heroine on a daily basis. Last use was about 3 days shetty the day he was admitted ot hospital. States that he is currently going through withdrawals. C /O sharp chest pain again this morning, abd pain and diarrhea overnight. Denies having any SOB, N/V. 12 point ROS are negative except for the above mentioned. Objective - Vital Signs/Intake and Output Vital Signs (last 24 hours): Temp Pulse Resp BP Pulse Ox 98.6 F 62 20 146/86 96 10/02/17 08:00 10/02/17 08:00 10/02/17 08:00 10/02/17 08:00 10/02/17 08:00 - Medications Medications: Current Medications Amlodipine Besylate (Norvasc) 5 mg PO DAILY [facility] Last Admin: 10/01/17 10:25 Dose: Not Given Clonidine HCl (Catapres) 0.2 mg PO TID [facility] Last Admin: 10/01/17 18:36 Dose: 0.2 mg Enoxaparin Sodium (Lovenox) 40 mg SC DAILY [facility] PRN Reason: Protocol Last Admin: 10/01/17 10:18 Dose: 40 mg Lisinopril (Zestril) 5 mg PO DAILY [facility] Last Admin: 10/01/17 10:24 Dose: Not Given Quetiapine Fumarate (Seroquel) 100 mg PO HS [facility] Last Admin: 10/01/17 22:41 Dose: 100 mg Trazodone HCl (Desyrel) 100 mg PO HS PRN PRN Reason: Insomnia Last Admin: 10/02/17 05:10 Dose: 100 mg - Labs Labs: 10/02/17 05:50 10/02/17 05:50 - Constitutional Appears: Non-toxic, No Acute Distress - Head Exam Head Exam: ATRAUMATIC - ENT Exam ENT Exam: Mucous Membranes Moist - Respiratory Exam Respiratory Exam: Clear to Ausculation Bilateral. absent: Accessory Muscle Use , Rales, Rhonchi, Wheezes, Respiratory Distress - Cardiovascular Exam Cardiovascular Exam: REGULAR RHYTHM, +S1, +S2 - GI/Abdominal Exam GI & Abdominal Exam: Soft, Normal Bowel Sounds. absent: Distended, Firm, Guarding, Rigid, Tenderness, Organomegaly - Extremities Exam Extremities Exam: absent: Pedal Edema, Tenderness - Neurological Exam Neurological Exam: Alert, Awake, Oriented x3 - Psychiatric Exam Psychiatric exam: Normal Affect, Normal Mood - Skin Skin Exam: Dry, Intact, Normal Color, Warm Assessment and Plan - Assessment and Plan (Free Text) Assessment: (1) Chest pain Stress test done yesterday. Results pending avoid BB due to active cocaine use cont clonidine Lipid panel and HgbA1c normal (2) Chronic back pain pain management per primary care team (3) Cocaine abuse Discussed risks of cocaine abuse and recommended to avoid use (4) HTN (hypertension) cont with norvasc, clonidine and lisinopril for now Continue to monitor VS (5) Heroine abuse Consider getting psych consult for starting methadone Discussed risks of heroine abuse and recommended to avoid use Will discuss case with attending, Dr. Burch <Sergei Burch - Last Filed: 10/02/17 11:20> Objective - Vital Signs/Intake and Output Vital Signs (last 24 hours): Temp Pulse Resp BP Pulse Ox 98.6 F 62 20 146/86 96 10/02/17 08:00 10/02/17 08:00 10/02/17 08:00 10/02/17 08:00 10/02/17 08:00 - Medications Medications: Current Medications Amlodipine Besylate (Norvasc) 5 mg PO DAILY [facility] Last Admin: 10/01/17 10:25 Dose: Not Given Clonidine HCl (Catapres) 0.2 mg PO TID [facility] Last Admin: 10/01/17 18:36 Dose: 0.2 mg Enoxaparin Sodium (Lovenox) 40 mg SC DAILY [facility] PRN Reason: Protocol Last Admin: 10/01/17 10:18 Dose: 40 mg Lisinopril (Zestril) 5 mg PO DAILY [facility] Last Admin: 10/01/17 10:24 Dose: Not Given Quetiapine Fumarate (Seroquel) 100 mg PO HS [facility] Last Admin: 10/01/17 22:41 Dose: 100 mg Trazodone HCl (Desyrel) 100 mg PO HS PRN PRN Reason: Insomnia Last Admin: 10/02/17 05:10 Dose: 100 mg - Labs Labs: 10/02/17 05:50 10/02/17 05:50 Assessment and Plan (1) Chest pain Status: Acute (2) Chronic back pain Status: Acute (3) Cocaine abuse Status: Acute (4) HTN (hypertension) Status: Acute Attending/Attestation - Attestation I have personally seen and examined this patient.: Yes I have fully participated in the care of the patient.: Yes I have reviewed all pertinent clinical information, including history, physical exam and plan: Yes Notes (Text): 10/02/17 11:20 pt wants to leave ama resting images for stress test this pm further titration of therapy based on results of stress test
== END 2017-10-02 13:05 | disposition home or self-care (01) | DRG 134 ==
LOC: H.ER 20:05 → H.ERHOLD 20:32 → H.TEL 21:49 → OBSVTOIN 09-30 22:37
PROVIDERS: ADMIT Internal Medicine; ATTEND Internal Medicine
DX: I16.0 Hypertensive urgency (principal); D64.9 Anemia, unspecified; F11.10 Opioid abuse, uncomplicated; R07.89 Other chest pain; G89.29 Other chronic pain; M06.9 Rheumatoid arthritis, unspecified; I10 Essential (primary) hypertension; F19.10 Other psychoactive substance abuse, uncomplicated; Z79.899 Other long term (current) drug therapy; F17.210 Nicotine dependence, cigarettes, uncomplicated

== ENCOUNTER 2017-12-18 01:52 | Emergency (ER) | payer OTHER ==
[2017-12-18 01:52] VITALS: BMI 22.6
[2017-12-18 02:11] VITALS: TEMP 97.7
[2017-12-18 03:19] LABS: BASO % 0.5 % (0.0-2.0); EOS # 0.1 K/uL (0.0-0.7); EOS % 0.9 % (0.0-4.0); LYMPH # 1.5 K/uL (1.0-4.3); LYMPH % 21.5 % (20.0-40.0); MEAN CELL VOLUME 85.1 fl (80.0-94.0); MEAN CORPUSCULAR HEMOGLOBIN 28.1 pg (27.0-31.0); MEAN PLATELET VOLUME 8.8 fl (7.2-11.7); MONO # 0.6 K/uL (0.0-0.8); MONO % 8.7 % (0.0-10.0); NEUT # 4.9 K/uL (1.8-7.0); NEUT % 68.4 % (50.0-75.0); NRBC % 0.1 % (0.0-0.0); RED CELL DISTRIBUTION WIDTH 14.8 % (11.5-14.5); WHITE BLOOD COUNT 7.1 K/uL (4.8-10.8)
--- NOTE | 2017-12-18 03:25 | ED PDOC ---
HPI: Chest Pain Time Seen by Provider: 12/18/17 02:34 Chief Complaint (Nursing): Chest Pain Chief Complaint (Provider): Drug abuse and chest pain History Per: Patient History/Exam Limitations: no limitations Onset/Duration Of Symptoms: Hrs (7 hours ago) Current Symptoms Are (Timing): Still Present Additional Complaint(s): 62 yo male, brought in by EMS, with a history of heorin, cocaine, and hypertension, presents to the ED complaining of chest pain, onset of 6 hours ago. Patient states that roughly 7 hours ago he used a "20" of cocaine, which he sniffed, and complained of chest pain 1 hour later. He denies any shortness of breath, other drug use, or alcohol abuse. Of note, patient has been noncompliant with his prescribed Catapres 0.3mg and is currently under arrest. Past Medical History Reviewed: Historical Data, Nursing Documentation, Vital Signs Vital Signs: Last Vital Signs Temp 97.7 F 12/18/17 02:08 Pulse 54 L 12/18/17 03:37 Resp 14 12/18/17 03:37 BP 155/87 H 12/18/17 03:37 Pulse Ox 96 12/18/17 03:37 - Medical History PMH: Anemia, Arthritis, Back Problems, HTN, Rheumatoid Arthritis, Chronic Pain Denies: Diabetes, Hepatitis, HIV, Chronic Kidney Disease, Seizures, Sexually Transmitted Disease - Surgical History Surgical History: No Surg Hx - Family History Family History: States: Unknown Family Hx, CAD, Hypertension - Social History Current smoker - smoking cessation education provided: Yes (light) Alcohol: None Drugs: Cocaine, Opiates - Immunization History Hx Tetanus Toxoid Vaccination: No Hx Influenza Vaccination: Yes Hx Pneumococcal Vaccination: Yes - Home Medications Home Medications: Ambulatory Orders Medication Instructions Recorded Lisinopril [Zestril] 5 mg PO DAILY #30 tab 01/24/17 amLODIPine [Norvasc] 5 mg PO DAILY #30 tab 01/24/17 cloNIDine [Catapres] 0.3 mg PO Q8 07/14/17 QUEtiapine [Seroquel] 100 mg PO HS #30 tab 09/18/17 amLODIPine [Norvasc] 5 mg PO DAILY #30 tab 09/18/17 traZODone [Desyrel] 100 mg PO HS PRN #30 tab 12/14/17 - Allergies Allergies/Adverse Reactions: Allergies Allergy/AdvReac Type Severity Reaction Status Date / Time No Known Allergies Allergy Verified 12/18/17 02:08 Review of Systems ROS Statement: Except As Marked, All Systems Reviewed And Found Negative Constitutional: Negative for: Fever Cardiovascular: Positive for: Chest Pain Respiratory: Negative for: Shortness of Breath Physical Exam - Reviewed Nursing Documentation Reviewed: Yes Vital Signs Reviewed: Yes - Physical Exam Appears: Positive for: Well, Non-toxic, No Acute Distress Head Exam: Positive for: ATRAUMATIC, NORMAL INSPECTION, NORMOCEPHALIC Skin: Positive for: Normal Color, Warm, DRY Eye Exam: Positive for: EOMI, Normal appearance, PERRL ENT: Positive for: Normal ENT Inspection Neck: Positive for: Normal, Painless ROM Cardiovascular/Chest: Positive for: Regular Rate, Rhythm. Negative for: Murmur Respiratory: Positive for: Normal Breath Sounds. Negative for: Respiratory Distress Gastrointestinal/Abdominal: Positive for: Normal Exam, Soft. Negative for: Tenderness Back: Positive for: Normal Inspection Extremity: Positive for: Normal ROM. Negative for: Pedal Edema, Deformity Neurologic/Psych: Positive for: Alert, Oriented. Negative for: Motor/Sensory Deficits - Laboratory Results Result Diagrams: 12/18/17 03:16 12/18/17 03:16 - ECG O2 Sat by Pulse Oximetry: 97 (RA) Pulse Ox Interpretation: Normal Medical Decision Making Medical Decision Making: Time: --02:51 Impression: --Chest pain secondary to cocaine abuse Plan: --ECG --Labs --Drug Screen, Urine --Troponin I --PTT --PT --Chest One View X-ray --Catapres 0.3mg PO x2 --Electromechanical Technologist --Urinalysis Reassess --02:56 Patient will require Catapres for his blood pressure and cardiac biomarkers. --6:40 Patient has 2 negative troponins, sleeping soundly in room, BP 136/60, no longer c/o of chest pain. Psychatrically cleared with dx: Adjustment disorder. Medically stable for outaptient followup, can be discharged into police custody. Advised patient to stop using cocaine. Scribe Attestation: Documented by Fran Lakhani acting as a scribe for Neftali Viera MD. Provider Attestation: All medical record entries made by the Scribe were at my direction and personally dictated by me. I have reviewed the chart and agree that the record accurately reflects my personal performance of the history, physical exam, medical decision making, and the department course for this patient. I have also personally directed, reviewed, and agree with the discharge instructions and disposition. Disposition - Clinical Impression Clinical Impression: Atypical chest pain - Disposition Referrals: Anaya Granados MD [Primary Care Provider] - Disposition: Discharged/Transfer to Law Enforcement Disposition Time: 06:43 Condition: IMPROVED Additional Instructions: Patient is medically and psychiatrically cleared for incarceration. Instructions: Chest Pain, Cocaine Use Disorder Forms: [employer] (Samoan)
[2017-12-18 03:27] LABS: BLOOD UREA NITROGEN 22 mg/dl (9-20); CALCIUM 9.2 mg/dL (8.4-10.2); GFR AFRICAN-AMERICAN > 60; GFR NON-AFRICAN AMERICAN > 60
[2017-12-18 03:29] LABS: PARTIAL THROMBOPLASTIN TIME 29.6 Seconds (25.6-37.1); PROTHROMBIN TIME 10.5 Seconds (9.8-13.1)
[2017-12-18 03:30] LABS: SQUAMOUS EPITHIAL 1 /hpf (0-5); URINE BILIRUBIN NEGATIVE (NEGATIVE); URINE BLOOD SMALL (NEGATIVE); URINE CLARITY SLIGHTY-CLOUDY (Clear); URINE COLOR YELLOW (YELLOW); URINE GLUCOSE (UA) NEG (Normal); URINE HYALINE CAST 0-2 /hpf (0-2); URINE LEUKOCYTE ESTERASE NEG Leu/uL (Negative); URINE PROTEIN 100 mg/dL (NEGATIVE); URINE UROBILINOGEN 0.2-1.0 mg/dL (0.2-1.0)
[2017-12-18 03:40] LABS: BARBITURATES, UR NEGATIVE (NEGATIVE)
[2017-12-18 03:47] LABS: BENZODIAZEPINES, UR NEGATIVE (NEGATIVE); OPIATES, UR POSITIVE (NEGATIVE); PHENCYCLIDINE, UR NEGATIVE (NEGATIVE)
[2017-12-18 06:44] VITALS: O2SAT 97
[2017-12-18 06:58] VITALS: BP 131/79; PULSE 57; RESP 16
--- NOTE | 2017-12-18 08:55 | RAD ---
PROCEDURE: CHEST RADIOGRAPH, 1 VIEW HISTORY: cp COMPARISON: 09/30/2017 chest radiograph as well as chest radiograph with right ribs 09/14/2011. FINDINGS: LUNGS: No acute infiltrate bilaterally. A small calcified granuloma is stable at the inferior right lung zone laterally, dating back to prior chest radiograph from 2010 noted above. PLEURA: No pneumothorax or pleural fluid seen. CARDIOVASCULAR: Normal. OSSEOUS STRUCTURES: No significant abnormalities. VISUALIZED UPPER ABDOMEN: Surgical clips are again seen at the bilateral upper quadrants OTHER FINDINGS: None. IMPRESSION: No interval acute cardiopulmonary disease appreciated.
--- NOTE | 2017-12-18 11:30 | CARD ---
APPROVED REPORT EKG Measurement Heart [id number] HI 140P-10 [id number] <Conclusion> Sinus bradycardia Voltage criteria for left ventricular hypertrophy Abnormal ECG
== END 2017-12-18 06:58 ==
LOC: H.ER 01:52
DX: R07.89 Other chest pain (principal); F14.10 Cocaine abuse, uncomplicated; F17.200 Nicotine dependence, unspecified, uncomplicated; I10 Essential (primary) hypertension; M06.9 Rheumatoid arthritis, unspecified; G89.29 Other chronic pain

== ENCOUNTER 2018-04-26 00:10 | Emergency (ER) | payer OTHER ==
[2018-04-26 00:19] VITALS: BMI 20.9
[2018-04-26 00:20] VITALS: RESP 18
[2018-04-26 02:23] LABS: BASO % 0.8 % (0.0-2.0); EOS # 0.1 K/uL (0.0-0.7); EOS % 1.7 % (0.0-4.0); HEMOGLOBIN 13.4 g/dL (12.0-18.0); LYMPH # 0.8 K/uL (1.0-4.3); LYMPH % 16.2 % (20.0-40.0); MEAN CELL VOLUME 85.9 fl (80.0-94.0); MEAN CORPUSCULAR HEMOGLOBIN 27.5 pg (27.0-31.0); MEAN PLATELET VOLUME 9.7 fl (7.2-11.7); MONO # 0.4 K/uL (0.0-0.8); MONO % 8.9 % (0.0-10.0); NEUT # 3.7 K/uL (1.8-7.0); NEUT % 72.4 % (50.0-75.0); NRBC % 0.1 % (0.0-0.0); RBC 4.87 Mil/uL (4.40-5.90); RED CELL DISTRIBUTION WIDTH 14.1 % (11.5-14.5); WHITE BLOOD COUNT 5.1 K/uL (4.8-10.8)
[2018-04-26 02:28] LABS: BLOOD UREA NITROGEN 25 mg/dl (9-20); CALCIUM 9.1 mg/dL (8.4-10.2); GFR AFRICAN-AMERICAN > 60; GFR NON-AFRICAN AMERICAN 56
--- NOTE | 2018-04-26 02:46 | ED PDOC ---
HPI: Chest Pain Time Seen by Provider: 04/26/18 01:00 Chief Complaint (Nursing): Chest Pain History Per: Patient History/Exam Limitations: no limitations Onset/Duration Of Symptoms: Hrs Current Symptoms Are (Timing): Still Present Quality: Pressure Additional History Per: Patient Additional Complaint(s): HX of HTN, drug abuse presenting with chest pain after using drugs, states he used 2 lines of cocaine and 2 "dime bags of dope" around 6PM, states that he started developing mid-sternal chest pressure at 10PM while sitting and watching TV, assoc. with mild shortness of breath. No fevers, cough, chills, nausea, vomiting. Denies alcohol use. Past Medical History Reviewed: Historical Data, Nursing Documentation, Vital Signs Vital Signs: Last Vital Signs Temp 97.8 F 04/26/18 07:11 Pulse 58 L 04/26/18 07:11 Resp 18 04/26/18 07:11 BP 166/98 H 04/26/18 07:11 Pulse Ox 100 04/26/18 07:11 - Medical History PMH: Anemia, Arthritis, Back Problems, HTN, Rheumatoid Arthritis, Chronic Pain Denies: Diabetes, Hepatitis, HIV, Chronic Kidney Disease, Seizures, Sexually Transmitted Disease - Family History Family History: States: Unknown Family Hx, CAD, Hypertension - Immunization History Hx Tetanus Toxoid Vaccination: No Hx Influenza Vaccination: Yes Hx Pneumococcal Vaccination: Yes - Home Medications Home Medications: Ambulatory Orders Medication Instructions Recorded Lisinopril [Zestril] 5 mg PO DAILY #30 tab 01/24/17 amLODIPine [Norvasc] 5 mg PO DAILY #30 tab 01/24/17 cloNIDine [Catapres] 0.3 mg PO Q8 07/14/17 QUEtiapine [Seroquel] 100 mg PO HS #30 tab 09/18/17 amLODIPine [Norvasc] 5 mg PO DAILY #30 tab 09/18/17 traZODone [Desyrel] 100 mg PO HS PRN #30 tab 09/18/17 - Allergies Allergies/Adverse Reactions: Allergies Allergy/AdvReac Type Severity Reaction Status Date / Time No Known Allergies Allergy Verified 04/26/18 00:19 AYESHA Risk Score for UA/NSTEMI - AYESHA Risk Score Age > 64: NO 3 or more CAD Risk Factors: NO Known CAD (Stenosis greater than 50%): NO Aspirin use in past 7 days: NO Severe Angina: NO EKG ST changes greater than 0.5mm: NO Positive Cardiac Marker: NO AYESHA Score: 0 Risk %: 5% Review of Systems ROS Statement: Except As Marked, All Systems Reviewed And Found Negative Cardiovascular: Positive for: Chest Pain Physical Exam - Reviewed Nursing Documentation Reviewed: Yes Vital Signs Reviewed: Yes - Physical Exam Appears: Positive for: Well, Non-toxic, No Acute Distress Head Exam: Positive for: ATRAUMATIC, NORMAL INSPECTION, NORMOCEPHALIC Skin: Positive for: Normal Color, Warm, DRY Eye Exam: Positive for: EOMI, Normal appearance, PERRL ENT: Positive for: Normal ENT Inspection Neck: Positive for: Normal, Painless ROM Cardiovascular/Chest: Positive for: Regular Rate, Rhythm Respiratory: Positive for: CNT, Normal Breath Sounds Gastrointestinal/Abdominal: Positive for: Normal Exam, Soft. Negative for: Tenderness Back: Positive for: Normal Inspection Extremity: Positive for: Normal ROM Neurologic/Psych: Positive for: Alert, edge burnisher uppers II-XII, Oriented. Negative for: Motor/Sensory Deficits - Laboratory Results Result Diagrams: 04/26/18 02:07 04/26/18 02:07 - ECG ECG: Positive for: Interpreted By Me, Viewed By Me ECG Rhythm: Positive for: Normal QRS, Normal ST Segment, Sinus Rhythm O2 Sat by Pulse Oximetry: 97 Pulse Ox Interpretation: Normal Medical Decision Making Medical Decision MakinAM A/P: Hx of HTN, drug abuse presenting with chest pain after using cocaine and heroin -patient well appearing, stable vitals, hypertense currently -EKG non-ischemic, exam nonfocal -likely vasospasm from cocaine abuse -will check bloodwork, 2 trops, CXR -toradol/flexeril for pain 7AM -Patient slept comfortably all night, 2 trops negative -Advised to followup with PMD -Vitals improved, alert, oriented, steady gait, well appearing Disposition - Clinical Impression Clinical Impression: Cocaine abuse, Opioid use disorder, severe, dependence, Chest pain - Disposition Referrals: [facility] [Outside] Disposition: Routine/Home Disposition Time: 07:00 Condition: STABLE Instructions: Cocaine Use Disorder, Chest Pain That Is Not Caused by the Heart (DC), Opioid Use Disorder Forms: [address] (Urdu)
[2018-04-26 06:05] LABS: BARBITURATES, UR NEGATIVE (NEGATIVE)
[2018-04-26 06:13] LABS: BENZODIAZEPINES, UR NEGATIVE (NEGATIVE); OPIATES, UR POSITIVE (NEGATIVE); PHENCYCLIDINE, UR NEGATIVE (NEGATIVE)
[2018-04-26 07:12] VITALS: BP 166/98; TEMP 97.8
[2018-04-26 07:13] VITALS: PULSE 58
--- NOTE | 2018-04-26 11:58 | RAD ---
Date of service: 04/26/2018 PROCEDURE: CHEST RADIOGRAPH, 1 VIEW HISTORY: cp COMPARISON: 12/18/2017 FINDINGS: LUNGS: Clear. PLEURA: No pneumothorax or pleural fluid seen. CARDIOVASCULAR: Normal. OSSEOUS STRUCTURES: No significant abnormalities. VISUALIZED UPPER ABDOMEN: Normal. OTHER FINDINGS: None. IMPRESSION: No active disease.
--- NOTE | 2018-04-26 13:51 | CARD ---
APPROVED REPORT Date of service: 04/26/2018 EKG Measurement Heart [id number] <Conclusion> Sinus bradycardia Possible Left atrial enlargement Left ventricular hypertrophy Abnormal ECG
[2018-04-26 21:02] VITALS: O2SAT 97
== END 2018-04-26 07:22 | disposition home or self-care (01) ==
LOC: H.ER 00:10
DX: F14.10 Cocaine abuse, uncomplicated (principal); F11.20 Opioid dependence, uncomplicated; R07.89 Other chest pain; G89.29 Other chronic pain; I10 Essential (primary) hypertension; M06.9 Rheumatoid arthritis, unspecified
CPT/HCPCS: 71045; 80048; 80324; 80345; 80346; 80349; 80353; 80358; 80361; 83992; 84484; 85025; 93005; 96374; 99284; J1885

== ENCOUNTER 2018-05-06 23:02 | Emergency (ER) | payer OTHER ==
--- NOTE | 2018-05-06 23:29 | ED PDOC ---
HPI: General Adult Time Seen by Provider: 05/06/18 23:29 Chief Complaint (Provider): chest pain, clearance History Per: Patient Additional Complaint(s): 62-year-old male presents for medical and psychiatric clearance for incarceration. Patient is currently in police custody and complains of chest pain that started 4 hours ago. Patient admits to use of cocaine and heroin this evening. He offers no other complaints and denies any suicidal or homicidal ideation. PMD: none Past Medical History Reviewed: Historical Data, Nursing Documentation, Vital Signs Vital Signs: Last Vital Signs Temp 98.1 F 05/07/18 00:54 Pulse 63 05/07/18 00:54 Resp 16 05/07/18 00:54 BP 154/84 H 05/07/18 00:54 Pulse Ox 100 05/07/18 00:54 - Medical History PMH: Anemia, Arthritis, Back Problems, HTN, Rheumatoid Arthritis, Chronic Pain - Family History Family History: States: CAD, Hypertension - Social History Current smoker - smoking cessation education provided: Yes Alcohol: None Drugs: Cocaine, Opiates (snorts heroin) - Home Medications Home Medications: Ambulatory Orders Medication Instructions Recorded Lisinopril [Zestril] 5 mg PO DAILY #30 tab 01/24/17 amLODIPine [Norvasc] 5 mg PO DAILY #30 tab 01/24/17 cloNIDine [Catapres] 0.3 mg PO Q8 07/14/17 QUEtiapine [Seroquel] 100 mg PO HS #30 tab 09/18/17 amLODIPine [Norvasc] 5 mg PO DAILY #30 tab 09/18/17 traZODone [Desyrel] 100 mg PO HS PRN #30 tab 09/18/17 - Allergies Allergies/Adverse Reactions: Allergies Allergy/AdvReac Type Severity Reaction Status Date / Time No Known Allergies Allergy Verified 04/26/18 00:19 Review of Systems ROS Statement: Except As Marked, All Systems Reviewed And Found Negative Constitutional: Negative for: Fever Cardiovascular: Positive for: Chest Pain Respiratory: Negative for: Cough Gastrointestinal: Negative for: Nausea, Vomiting, Abdominal Pain, Diarrhea Physical Exam - Reviewed Nursing Documentation Reviewed: Yes Vital Signs Reviewed: Yes - Physical Exam Appears: Positive for: Well Skin: Positive for: Normal Color. Negative for: Rash Eye Exam: Positive for: Normal appearance Cardiovascular/Chest: Positive for: Regular Rate, Rhythm Respiratory: Positive for: Normal Breath Sounds Gastrointestinal/Abdominal: Positive for: Soft. Negative for: Tenderness, Distended, Guarding, Rebound Extremity: Positive for: Normal ROM Neurologic/Psych: Positive for: Alert, Oriented - Laboratory Results Result Diagrams: 05/06/18 23:56 05/06/18 23:56 - ECG ECG Rhythm: Positive for: Sinus Bradycardia O2 Sat by Pulse Oximetry: 100 Pulse Ox Interpretation: Normal - Other Rad CXR X-Ray: Interpreted by Me, Viewed By Me X-Ray Interpretation: no acute finding, no interval change Medical Decision Making Medical Decision Makin62 year old with chest pain, arrives in police custody for medical and psychiatric clearance. Plan: EKG CXR CBC CMP BAL UDS UA IVF Troponin Crisis eval PO clonidine and Norvasc for HTN Patient seen by crisis counselor. As per counselor and psychiatrist microsoft application developer Dr. Baker, patient does not meet criteria for psychiatric admission. Repeat vitals are improved. Patient is medically and psychiatrically stable for incarceration. Disposition - Clinical Impression Clinical Impression: Substance abuse - Patient ED Disposition Is Patient to be Admitted: No - Disposition Referrals: [facility] [Outside] Disposition: Discharged/Transfer to Law Enforcement Disposition Time: 00:56 Condition: FAIR Additional Instructions: Patient is medically and psychiatrically stable for incarceration. Instructions: Drug Abuse and Drug Addiction (DC) Results - Lab Results Lab Results: 05/06/18 05/06/18 05/06/18 23:56 23:56 23:56 WBC RBC Hgb Hct MCV MCH MCHC RDW Plt Count MPV Neut % (Auto) Lymph % (Auto) [place] % (Auto) Eos % (Auto) Baso % (Auto) Neut # (Auto) Lymph # (Auto) [place] # (Auto) Eos # (Auto) Baso # (Auto) Sodium 142 Potassium 3.5 L Chloride 102 Carbon Dioxide 30 Anion Gap 14 BUN 13 Creatinine 1.0 Est GFR ( Amer) > 60 Est GFR (Non-Af Amer) > 60 Random Glucose 103 Calcium 9.3 Total Bilirubin 0.7 AST 33 ALT 29 Alkaline Phosphatase 57 Troponin I 0.0130 Total Protein 7.8 Albumin 4.3 Globulin 3.5 Albumin/Globulin Ratio 1.2 Urine Color Yellow Urine Clarity Clear Urine pH 6.0 Ur Specific [place] 1.017 Urine Protein 30 Urine Glucose (UA) Neg Urine Ketones Negative Urine Blood Negative Urine Nitrate Negative Urine Bilirubin Negative Urine Urobilinogen 2.0 Ur Leukocyte Esterase Neg Urine RBC (Auto) 2 Urine Microscopic WBC 1 Ur Squamous Epith Cells < 1 Urine Opiates Screen Positive H Urine Methadone Screen Negative Ur Barbiturates Screen Negative Ur Phencyclidine Scrn Negative Ur Amphetamines Screen Negative U Benzodiazepines Scrn Negative U Oth Cocaine Metabols Positive H U Cannabinoids Screen Negative Alcohol, Quantitative < 10 05/06/18 23:56 WBC 5.9 RBC 5.05 Hgb 14.1 Hct 43.2 MCV 85.6 MCH 27.9 MCHC 32.6 L RDW 13.9 Plt Count 190 MPV 9.2 Neut % (Auto) 60.4 Lymph % (Auto) 26.0 Garfield % (Auto) 10.5 H Eos % (Auto) 2.3 Baso % (Auto) 0.8 Neut # (Auto) 3.5 Lymph # (Auto) 1.5 Garfield # (Auto) 0.6 Eos # (Auto) 0.1 Baso # (Auto) 0.0 Sodium Potassium Chloride Carbon Dioxide Anion Gap BUN Creatinine Est GFR ( Amer) Est GFR (Non-Af Amer) Random Glucose Calcium Total Bilirubin AST ALT Alkaline Phosphatase Troponin I Total Protein Albumin Globulin Albumin/Globulin Ratio Urine Color Urine Clarity Urine pH Ur Specific [place] Urine Protein Urine Glucose (UA) Urine Ketones Urine Blood Urine Nitrate Urine Bilirubin Urine Urobilinogen Ur Leukocyte Esterase Urine RBC (Auto) Urine Microscopic WBC Ur Squamous Epith Cells Urine Opiates Screen Urine Methadone Screen Ur Barbiturates Screen Ur Phencyclidine Scrn Ur Amphetamines Screen U Benzodiazepines Scrn U Oth Cocaine Metabols U Cannabinoids Screen Alcohol, Quantitative
[2018-05-06 23:30] VITALS: BMI 46.2
[2018-05-06 23:38] VITALS: RESP 16; O2SAT 100
[2018-05-06] MEDS: Sodium Chloride 0.9% 1,000 ML IV STA (23:52)
[2018-05-07 00:07] LABS: SQUAMOUS EPITHIAL < 1 /hpf (0-5); URINE BILIRUBIN NEGATIVE (NEGATIVE); URINE BLOOD NEGATIVE (NEGATIVE); URINE CLARITY CLEAR (Clear); URINE COLOR YELLOW (YELLOW); URINE GLUCOSE (UA) NEG (Normal); URINE LEUKOCYTE ESTERASE NEG Leu/uL (Negative); URINE PROTEIN 30 mg/dL (NEGATIVE)
[2018-05-07 00:20] LABS: BASO % 0.8 % (0.0-2.0); EOS # 0.1 K/uL (0.0-0.7); EOS % 2.3 % (0.0-4.0); HEMOGLOBIN 14.1 g/dL (12.0-18.0); LYMPH # 1.5 K/uL (1.0-4.3); MEAN CELL VOLUME 85.6 fl (80.0-94.0); MEAN CORPUSCULAR HEMOGLOBIN 27.9 pg (27.0-31.0); MEAN CORPUSCULAR HGB CONC 32.6 g/dL (33.0-37.0); MEAN PLATELET VOLUME 9.2 fl (7.2-11.7); MONO # 0.6 K/uL (0.0-0.8); MONO % 10.5 % (0.0-10.0); NEUT # 3.5 K/uL (1.8-7.0); NEUT % 60.4 % (50.0-75.0); RBC 5.05 Mil/uL (4.40-5.90); RED CELL DISTRIBUTION WIDTH 13.9 % (11.5-14.5); WHITE BLOOD COUNT 5.9 K/uL (4.8-10.8)
[2018-05-07 00:30] LABS: BARBITURATES, UR NEGATIVE (NEGATIVE)
[2018-05-07 00:48] LABS: ALB/GLOB RATIO 1.2 (1.0-2.1); ALBUMIN 4.3 g/dL (3.5-5.0); ALT/SGPT 29 U/L (21-72); AST/SGOT 33 U/L (17-59); BLOOD UREA NITROGEN 13 mg/dl (9-20); CALCIUM 9.3 mg/dL (8.4-10.2); GFR AFRICAN-AMERICAN > 60; GFR NON-AFRICAN AMERICAN > 60
[2018-05-07 00:49] LABS: BENZODIAZEPINES, UR NEGATIVE (NEGATIVE); OPIATES, UR POSITIVE (NEGATIVE); PHENCYCLIDINE, UR NEGATIVE (NEGATIVE)
[2018-05-07 00:55] VITALS: BP 154/84
[2018-05-07 01:06] VITALS: PULSE 72; TEMP 98.3
--- NOTE | 2018-05-07 11:09 | RAD ---
Date of service: 05/06/2018 HISTORY: clearance COMPARISON: Frontal chest radiograph 04/26/2018. FINDINGS: LUNGS: No active pulmonary disease. PLEURA: No significant pleural effusion identified, no pneumothorax apparent. CARDIOVASCULAR: Normal cardiac size appreciated once again. Mild aortic ectasis again evident. OSSEOUS STRUCTURES: No significant abnormalities. VISUALIZED UPPER ABDOMEN: Surgical clips reiterated in the upper left and right quadrants of the abdomen. OTHER FINDINGS: None. IMPRESSION: No interval acute cardiopulmonary disease appreciated.
== END 2018-05-07 01:07 ==
LOC: H.ER 23:02
DX: F19.10 Other psychoactive substance abuse, uncomplicated (principal); R07.89 Other chest pain; F17.200 Nicotine dependence, unspecified, uncomplicated; G89.29 Other chronic pain; I10 Essential (primary) hypertension; M06.9 Rheumatoid arthritis, unspecified
CPT/HCPCS: 71045; 80053; 80320; 80324; 80345; 80346; 80349; 80353; 80358; 80361; 81003; 83992; 84484; 85025; 99284; J7030

== ENCOUNTER 2018-05-09 12:40 | Observation (INO) | payer OTHER ==
[2018-05-09 12:41] VITALS: BMI 46.2
[2018-05-09] MEDS ORDERED: Sodium Chloride 0.9% 1,000 ML IV STA (12:55)
--- NOTE | 2018-05-09 13:00 | ED PDOC ---
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 with chest pain and off and on dyspnea. Did coccaine 4hrs ago and alcohol. Is homeless. No abd pain, weakness, numbness, tingles, fever. No cough, headaches. No leg pain. No long distance travel. Here 2 days ago per pt. for same and had IV in right arm. States after IV line pulled he got some black and blue in the forearm where the IV was. Mild pain. No numbness there. Able to have full range of motion there. Not suicidal or homicidal. Does not take meds for his htn. States he snorts his drugs; does not inject. Past Medical History Reviewed: Nursing Documentation, Vital Signs Vital Signs: Last Vital Signs Temp 98.0 F 05/09/18 12:46 Pulse 69 05/09/18 12:46 Resp 16 05/09/18 12:46 BP 154/99 H 05/09/18 12:46 Pulse Ox 99 05/09/18 13:09 - Medical History PMH: Anemia, Arthritis, Back Problems, HTN, Rheumatoid Arthritis, Chronic Pain Denies: Diabetes, Hepatitis, HIV, Chronic Kidney Disease, Seizures, Sexually Transmitted Disease - Family History Family History: States: Unknown Family Hx, CAD, Hypertension - Social History Alcohol: > 2 Drinks/Day Drugs: Cocaine, Opiates - Immunization History Hx Tetanus Toxoid Vaccination: No Hx Influenza Vaccination: Yes Hx Pneumococcal Vaccination: Yes - Home Medications Home Medications: Ambulatory Orders Medication Instructions Recorded Lisinopril [Zestril] 5 mg PO DAILY #30 tab 01/24/17 amLODIPine [Norvasc] 5 mg PO DAILY #30 tab 01/24/17 cloNIDine [Catapres] 0.3 mg PO Q8 07/14/17 QUEtiapine [Seroquel] 100 mg PO HS #30 tab 09/18/17 amLODIPine [Norvasc] 5 mg PO DAILY #30 tab 09/18/17 traZODone [Desyrel] 100 mg PO HS PRN #30 tab 09/18/17 - Allergies Allergies/Adverse Reactions: Allergies Allergy/AdvReac Type Severity Reaction Status Date / Time No Known Allergies Allergy Verified 04/26/18 00:19 Review of Systems ROS Statement: Except As Marked, All Systems Reviewed And Found Negative Cardiovascular: Positive for: Chest Pain Respiratory: Positive for: Shortness of Breath Physical Exam - Reviewed Nursing Documentation Reviewed: Yes Vital Signs Reviewed: Yes - Physical Exam Appears: Positive for: Non-toxic, No Acute Distress Head Exam: Positive for: ATRAUMATIC, NORMAL INSPECTION, NORMOCEPHALIC Skin: Positive for: Normal Color, Warm, DRY Eye Exam: Positive for: EOMI, Normal appearance, PERRL ENT: Positive for: Normal ENT Inspection Neck: Positive for: Normal, Painless ROM, Supple Cardiovascular/Chest: Positive for: Regular Rate, Rhythm, Chest Non Tender. Negative for: Edema Respiratory: Positive for: CNT, Normal Breath Sounds Pulses-Radial (L): 2+ Pulses-Radial (R): 2+ Gastrointestinal/Abdominal: Positive for: Normal Exam, Soft. Negative for: Tenderness Back: Positive for: Normal Inspection. Negative for: L CVA Tenderness, R CVA Tenderness Extremity: Positive for: Normal ROM, Other (R forearm ecchymosis spread ventral surface; no induration or dc; no erythema.). 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 Negative for: Motor/Sensory Deficits, Facial Droop - Laboratory Results Result Diagrams: 05/09/18 13:30 05/09/18 13:30 Interpretation Of Abn Labs: opiates, coccaine, alcohol - ECG ECG: Positive for: Interpreted By Me, Viewed By Me ECG Rhythm: Positive for: Nonspecific Changes Interpretation Of Abn EKG: qtc 470; qrs 102 change from old O2 Sat by Pulse Oximetry: 99 Pulse Ox Interpretation: Normal - Radiology X-Ray: Interpreted by Me, Viewed By Me X-Ray Interpretation: No Acute Disease - Progress ED Course And Treament: 1603: Spoke with Dr. Aguirre. Will admit tele obs. AAOx3. Pain free. Tolerated PO. Disposition - Clinical Impression Clinical Impression: Chest pain, Alcohol dependence, Cocaine abuse, Opiate dependence - Patient ED Disposition Is Patient to be Admitted: Yes Counseled Patient/Family Regarding: Studies Performed, Diagnosis - Disposition Disposition Time: 16:04 Condition: FAIR - Pt Status Changed To: Hospital Disposition Of: Observation - POA Present On Arrival: None
[2018-05-09 13:42] LABS: BASO # 0.1 K/uL (0.0-0.2); BASO % 0.9 % (0.0-2.0); EOS # 0.2 K/uL (0.0-0.7); EOS % 2.3 % (0.0-4.0); HEMOGLOBIN 13.1 g/dL (12.0-18.0); LYMPH % 28.7 % (20.0-40.0); MEAN CELL VOLUME 84.9 fl (80.0-94.0); MEAN CORPUSCULAR HEMOGLOBIN 27.9 pg (27.0-31.0); MEAN CORPUSCULAR HGB CONC 32.9 g/dL (33.0-37.0); MEAN PLATELET VOLUME 9.5 fl (7.2-11.7); MONO # 0.7 K/uL (0.0-0.8); MONO % 9.3 % (0.0-10.0); NEUT # 4.2 K/uL (1.8-7.0); NEUT % 58.8 % (50.0-75.0); NRBC % 0.1 % (0.0-0.0); RBC 4.7 Mil/uL (4.40-5.90); RED CELL DISTRIBUTION WIDTH 13.9 % (11.5-14.5); WHITE BLOOD COUNT 7.1 K/uL (4.8-10.8)
[2018-05-09 13:56] LABS: INR 1.1; PROTHROMBIN TIME 11.8 Seconds (9.8-13.1)
[2018-05-09 13:58] LABS: PARTIAL THROMBOPLASTIN TIME 29.6 Seconds (25.6-37.1)
[2018-05-09 13:59] LABS: ALB/GLOB RATIO 1.2 (1.0-2.1); ALBUMIN 4.1 g/dL (3.5-5.0); ALT/SGPT 20 U/L (21-72); AST/SGOT 45 U/L (17-59); BLOOD UREA NITROGEN 16 mg/dl (9-20); CALCIUM 8.8 mg/dL (8.4-10.2); GFR AFRICAN-AMERICAN > 60; GFR NON-AFRICAN AMERICAN > 60
[2018-05-09 15:30] LABS: BARBITURATES, UR NEGATIVE (NEGATIVE)
[2018-05-09 15:36] LABS: BENZODIAZEPINES, UR NEGATIVE (NEGATIVE); OPIATES, UR POSITIVE (NEGATIVE); PHENCYCLIDINE, UR NEGATIVE (NEGATIVE)
--- NOTE | 2018-05-09 16:31 | CARD ---
APPROVED REPORT Date of service: 05/09/2018 <Conclusion> Normal sinus rhythm Possible Left atrial enlargement Left ventricular hypertrophy Nonspecific T wave abnormality Abnormal ECG
[2018-05-09] MEDS: Sodium Chloride 0.9% 1,000 ML IV SCH (20:00)
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
[2018-05-10] MEDS: Sodium Chloride 0.9% 1,000 ML IV SCH ×2 (05:00→15:50)
--- NOTE | 2018-05-10 08:07 | RAD ---
Date of service: 05/09/2018 HISTORY: dyspnea COMPARISON: No prior. FINDINGS: LUNGS: Mild interstitial changes. PLEURA: No significant pleural effusion identified, no pneumothorax apparent. CARDIOVASCULAR: Normal. OSSEOUS STRUCTURES: No significant abnormalities. VISUALIZED UPPER ABDOMEN: Normal. OTHER FINDINGS: None. IMPRESSION: Mild interstitial changes.
--- NOTE | 2018-05-10 08:45 | CARD ---
APPROVED REPORT Date of service: 05/09/2018 <Conclusion> Normal sinus rhythm Possible Left atrial enlargement Left ventricular hypertrophy Nonspecific T wave abnormality Prolonged QT Abnormal ECG
[2018-05-10] MEDS: Enoxaparin 40 mg Syringe SC SCH (09:39)
[2018-05-10] MEDS: Pantoprazole 40 mg EC Tab PO SCH (09:39)
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
--- NOTE | 2018-05-10 10:52 | CT ---
Date of service: 05/10/2018 PROCEDURE: CT HEAD WITHOUT CONTRAST. HISTORY: Bradycardia COMPARISON: 2010 TECHNIQUE: Axial computed tomography images were obtained through the head/brain without intravenous contrast. Radiation dose: Total exam DLP = mGy-cm. This CT exam was performed using one or more of the following dose reduction techniques: Automated exposure control, adjustment of the mA and/or kV according to patient size, and/or use of iterative reconstruction technique. FINDINGS: HEMORRHAGE: No intracranial hemorrhage. BRAIN: No mass effect or edema. Old right frontal infarct. VENTRICLES: Unremarkable. No hydrocephalus. CALVARIUM: Unremarkable. PARANASAL SINUSES: Unremarkable as visualized. No significant inflammatory changes. MASTOID AIR CELLS: Unremarkable as visualized. No inflammatory changes. OTHER FINDINGS: None. IMPRESSION: No intracranial hemorrhage.
[2018-05-10 12:06] LABS: HEMOGLOBIN 13.4 g/dL (12.0-18.0); MEAN CELL VOLUME 85.2 fl (80.0-94.0); MEAN CORPUSCULAR HEMOGLOBIN 27.6 pg (27.0-31.0); MEAN CORPUSCULAR HGB CONC 32.5 g/dL (33.0-37.0); RBC 4.84 Mil/uL (4.40-5.90); RED CELL DISTRIBUTION WIDTH 13.8 % (11.5-14.5); WHITE BLOOD COUNT 5.1 K/uL (4.8-10.8)
[2018-05-10 12:16] LABS: BLOOD UREA NITROGEN 20 mg/dl (9-20); CALCIUM 9.6 mg/dL (8.4-10.2); GFR AFRICAN-AMERICAN > 60; GFR NON-AFRICAN AMERICAN > 60
[2018-05-10 20:11] VITALS: RESP 18
--- NOTE | 2018-05-11 00:25 | CP.PCM.PN ---
Subjective - Date & Time of Evaluation Date of Evaluation: 05/10/18 Time of Evaluation: 15:15 Objective - Vital Signs/Intake and Output Vital Signs (last 24 hours): Temp Pulse Resp BP Pulse Ox 98.4 F 50 L 18 159/85 H 96 05/11/18 00:05 05/11/18 00:22 05/11/18 00:05 05/11/18 00:22 05/11/18 00:05 - Medications Medications: Current Medications Amlodipine Besylate (Norvasc) 5 mg PO DAILY [facility] Last Admin: 05/10/18 09:40 Dose: 5 mg Aspirin (Aspirin) 325 mg PO DAILY [facility] Last Admin: 05/10/18 09:39 Dose: 325 mg Enoxaparin Sodium (Lovenox) 40 mg SC DAILY [facility] PRN Reason: Protocol Last Admin: 05/10/18 09:39 Dose: 40 mg Lisinopril (Zestril) 5 mg PO DAILY [facility] Last Admin: 05/10/18 09:41 Dose: 5 mg Pantoprazole Sodium (Protonix Ec Tab) 40 mg PO DAILY [facility] Last Admin: 05/10/18 09:39 Dose: 40 mg Quetiapine Fumarate (Seroquel) 100 mg PO HS [facility] Last Admin: 05/10/18 21:29 Dose: Not Given Trazodone HCl (Desyrel) 100 mg PO HS PRN PRN Reason: Insomnia - Labs Labs: 05/10/18 11:32 05/10/18 11:32 PT 11.8 Seconds (9.8-13.1) 05/09/18 13:30 INR 1.1 05/09/18 13:30 APTT 29.6 Seconds (25.6-37.1) 05/09/18 13:30
[2018-05-11] MEDS: Pantoprazole 40 mg EC Tab PO SCH (08:12)
[2018-05-11 08:16] VITALS: BP 183/99
[2018-05-11] MEDS: Enoxaparin 40 mg Syringe SC SCH (08:16)
[2018-05-11 08:43] VITALS: TEMP 98.6; O2SAT 96
[2018-05-11 09:44] VITALS: PULSE 61
== END 2018-05-11 10:01 | disposition left against medical advice (07) ==
LOC: H.ER 12:40 → H.ERHOLD 15:59 → H.TEL 18:26
PROVIDERS: ADMIT Internal Medicine; ATTEND Internal Medicine
DX: R07.89 Other chest pain (principal); F10.229 Alcohol dependence with intoxication, unspecified; F11.20 Opioid dependence, uncomplicated; F14.10 Cocaine abuse, uncomplicated; F41.9 Anxiety disorder, unspecified; I10 Essential (primary) hypertension; Y90.6 Blood alcohol level of 120-199 mg/100 ml; G89.29 Other chronic pain; M06.9 Rheumatoid arthritis, unspecified; D64.9 Anemia, unspecified; F17.210 Nicotine dependence, cigarettes, uncomplicated; Z59.0 Homelessness
CPT/HCPCS: 36415; 70450; 71045; 80048; 80053; 80320; 80324; 80345; 80346; 80349; 80353; 80358; 80361; 82948; 83992; 84484; 85025; 85027; 85610; 85730; 93005; 96374; 99285; G0378; J1650; J2060; J7030

== ENCOUNTER 2018-06-04 02:10 | Emergency (ER) | payer OTHER ==
[2018-06-04 02:11] VITALS: BMI 46.2
--- NOTE | 2018-06-04 02:52 | ED PDOC ---
HPI: Chest Pain Time Seen by Provider: 06/04/18 02:13 Chief Complaint (Nursing): Chest Pain Chief Complaint (Provider): Chest Pain History Per: Patient History/Exam Limitations: no limitations Onset/Duration Of Symptoms: Hrs (x2) Current Symptoms Are (Timing): Still Present Quality: Pressure Associated Symptoms: denies: Nausea, Diaphoresis Additional Complaint(s): 62 y/o male with a PMHx of HTN and cocaine abuse presents to the ED complaining of chest pain, onset two hours ago. Patient describes chest pain as pressure-like. Patient admits to heroin and use earlier today. Patient also reports of smoking a half pack of cigarettes a day. Denies nausea, vomiting and diaphoresis. PMD: No Provider Past Medical History Reviewed: Historical Data, Nursing Documentation, Vital Signs Vital Signs: Last Vital Signs Temp 98.3 F 06/04/18 04:48 Pulse 58 L 06/04/18 04:48 Resp 18 06/04/18 04:48 BP 129/55 L 06/04/18 04:48 Pulse Ox 97 06/04/18 04:50 - Medical History PMH: Anemia, Arthritis, Back Problems, HTN, Rheumatoid Arthritis, Chronic Pain Denies: Diabetes, Hepatitis, HIV, Chronic Kidney Disease, Seizures, Sexually Transmitted Disease - Surgical History Surgical History: No Surg Hx - Family History Family History: States: Unknown Family Hx, CAD, Hypertension - Social History Current smoker - smoking cessation education provided: Yes (half a pack a day ) Drugs: Cocaine, Other (heroin) - Immunization History Hx Tetanus Toxoid Vaccination: No Hx Influenza Vaccination: Yes Hx Pneumococcal Vaccination: Yes - Home Medications Home Medications: Ambulatory Orders Medication Instructions Recorded Lisinopril [Zestril] 5 mg PO DAILY #30 tab 01/24/17 amLODIPine [Norvasc] 5 mg PO DAILY #30 tab 01/24/17 cloNIDine [Catapres] 0.3 mg PO Q8 07/14/17 QUEtiapine [Seroquel] 100 mg PO HS #30 tab 09/18/17 amLODIPine [Norvasc] 5 mg PO DAILY #30 tab 09/18/17 traZODone [Desyrel] 100 mg PO HS PRN #30 tab 09/18/17 - Allergies Allergies/Adverse Reactions: Allergies Allergy/AdvReac Type Severity Reaction Status Date / Time No Known Allergies Allergy Verified 06/04/18 02:24 Review of Systems ROS Statement: Except As Marked, All Systems Reviewed And Found Negative Constitutional: Negative for: Sweats Cardiovascular: Positive for: Chest Pain Gastrointestinal: Negative for: Nausea, Vomiting Physical Exam - Reviewed Nursing Documentation Reviewed: Yes Vital Signs Reviewed: Yes - Physical Exam Appears: Positive for: Uncomfortable Head Exam: Positive for: ATRAUMATIC, NORMOCEPHALIC Skin: Positive for: Normal Color, Warm, Dry Eye Exam: Positive for: Normal appearance, EOMI, PERRL Neck: Positive for: Normal, Painless ROM Cardiovascular/Chest: Positive for: Regular Rate, Rhythm. Negative for: Murmur Respiratory: Positive for: Normal Breath Sounds. Negative for: Respiratory Distress Gastrointestinal/Abdominal: Positive for: Normal Exam, Soft. Negative for: Tenderness Extremity: Positive for: Normal ROM. Negative for: Deformity Neurologic/Psych: Positive for: Alert, Oriented. Negative for: Motor/Sensory Deficits - Laboratory Results Result Diagrams: 06/04/18 03:42 06/04/18 03:42 - ECG O2 Sat by Pulse Oximetry: 97 (RA) Pulse Ox Interpretation: Normal Medical Decision Making Medical Decision Making: Time: 0241 Impression: 62 y/o male with chest pain, in setting of cocaine use and history of smoking and HTN. Plan: -- EKG -- Alcohol Serum -- CMP -- Urine Drug Screen -- Troponin I -- CBC with differentials -- PTT -- Prothrombin Time -- CXR Portable -- Asprin 324 mg PO -- Heplock Insertion Time: 0450 -- CXR results show no active disease -- Labs reviewed and show no clinically significant abnormalities. Patient is stable for discharge home with a diagnosis of atypical chest pain. Scribe Attestation: Documented by Lauryn Birch acting as a scribe for Lucas Billings MD. Provider Scribe Attestation: All medical record entries made by the Scribe were at my direction and personally dictated by me. I have reviewed the chart and agree that the record accurately reflects my personal performance of the history, physical exam, medical decision making, and the department course for this patient. I have also personally directed, reviewed, and agree with the discharge instructions and disposition. Disposition - Clinical Impression Clinical Impression: Atypical chest pain - Patient ED Disposition Is Patient to be Admitted: No Counseled Patient/Family Regarding: Studies Performed, Diagnosis - Disposition Disposition: Routine/Home Disposition Time: 04:50 Condition: STABLE Instructions: Chest Pain That Is Not Caused by the Heart (DC) Forms: [employer] ([place]ican)
[2018-06-04 03:59] LABS: BASO % 0.5 % (0.0-2.0); EOS # 0.1 K/uL (0.0-0.7); EOS % 2.3 % (0.0-4.0); HEMOGLOBIN 13.2 g/dL (12.0-18.0); LYMPH # 1.1 K/uL (1.0-4.3); LYMPH % 21.7 % (20.0-40.0); MEAN CELL VOLUME 86.7 fl (80.0-94.0); MEAN CORPUSCULAR HGB CONC 32.3 g/dL (33.0-37.0); MEAN PLATELET VOLUME 9.2 fl (7.2-11.7); MONO # 0.4 K/uL (0.0-0.8); MONO % 9.1 % (0.0-10.0); NEUT # 3.3 K/uL (1.8-7.0); NEUT % 66.4 % (50.0-75.0); NRBC % 0.2 % (0.0-0.0); RBC 4.73 Mil/uL (4.40-5.90); RED CELL DISTRIBUTION WIDTH 14.5 % (11.5-14.5); WHITE BLOOD COUNT 4.9 K/uL (4.8-10.8)
[2018-06-04 04:42] LABS: ALB/GLOB RATIO 1.2 (1.0-2.1); ALBUMIN 3.8 g/dL (3.5-5.0); ALT/SGPT 28 U/L (21-72); AST/SGOT 27 U/L (17-59); BLOOD UREA NITROGEN 22 mg/dl (9-20); CALCIUM 9.2 mg/dL (8.4-10.2); GFR NON-AFRICAN AMERICAN 48
[2018-06-04 04:49] VITALS: RESP 18
[2018-06-04 04:51] VITALS: O2SAT 97
[2018-06-04 06:28] VITALS: BP 138/78; PULSE 72; TEMP 98.2
--- NOTE | 2018-06-04 08:41 | RAD ---
Date of service: 06/04/2018 HISTORY: chest pain COMPARISON: 05/09/2018. FINDINGS: LUNGS: The lungs are well inflated and clear. PLEURA: No significant pleural effusion identified, no pneumothorax apparent. CARDIOVASCULAR: Normal. OSSEOUS STRUCTURES: No significant abnormalities. VISUALIZED UPPER ABDOMEN: Normal. OTHER FINDINGS: There are multiple surgical clips in the right upper quadrant and epigastrium. IMPRESSION: No active pulmonary disease.
--- NOTE | 2018-06-04 08:43 | CARD ---
APPROVED REPORT Date of service: 06/04/2018 <Conclusion> Sinus bradycardia Possible Left atrial enlargement Left ventricular hypertrophy Abnormal ECG
== END 2018-06-04 05:00 | disposition home or self-care (01) ==
LOC: H.ER 02:10
DX: R06.02 Shortness of breath (principal); F17.210 Nicotine dependence, cigarettes, uncomplicated; G89.29 Other chronic pain; I10 Essential (primary) hypertension; M06.9 Rheumatoid arthritis, unspecified

== ENCOUNTER 2018-06-26 18:33 | Observation (INO) | payer OTHER ==
[2018-06-26 18:33] VITALS: BMI 46.2
--- NOTE | 2018-06-26 19:35 | ED PDOC ---
Syncope/Near Syncope/Dizziness Time Seen by Provider: 06/26/18 19:15 Chief Complaint (Nursing): Dizziness/Lightheaded Chief Complaint (Provider): High Blood Pressure History Per: Patient History/Exam Limitations: no limitations Onset/Duration Of Symptoms: Days Current Symptoms Are (Timing): Still Present Additional Complaint(s): 62 y/o male with a PMHx of HTN brought in by Police for medical clearance. Patient is under police custody and states his blood pressure is high. Patient reports his blood pressure has been high for approximately one year and is associated with blurry vision, dyspnea and chest pain. Patient states symptoms are intermittent. Patient additionally reports he is not complaint with HTN medication, Clonodine. Denies headache, syncope and leg swelling. PMD: No Provider Past Medical History Reviewed: Historical Data, Nursing Documentation, Vital Signs Vital Signs: Last Vital Signs Temp 98.2 F 06/26/18 18:34 Pulse 68 06/26/18 18:34 Resp 16 06/26/18 18:34 BP 189/114 H 06/26/18 18:34 Pulse Ox 98 06/26/18 18:34 - Medical History PMH: Anemia, Arthritis, Back Problems, HTN, Rheumatoid Arthritis, Chronic Pain Denies: Diabetes, Hepatitis, HIV, Chronic Kidney Disease, Seizures, Sexually Transmitted Disease - Surgical History Other surgeries: achilles tendon surgery - Family History Family History: States: Unknown Family Hx, CAD, Hypertension - Immunization History Hx Tetanus Toxoid Vaccination: No Hx Influenza Vaccination: Yes Hx Pneumococcal Vaccination: Yes - Allergies Allergies/Adverse Reactions: Allergies Allergy/AdvReac Type Severity Reaction Status Date / Time No Known Allergies Allergy Verified 06/26/18 18:34 Review of Systems ROS Statement: Except As Marked, All Systems Reviewed And Found Negative Constitutional: Positive for: Other (High Blood Pressure) Eyes: Positive for: Vision Change (blurry) Cardiovascular: Positive for: Chest Pain Respiratory: Positive for: Other (Dyspnea) Physical Exam - Reviewed Nursing Documentation Reviewed: Yes Vital Signs Reviewed: Yes - Physical Exam Appears: Positive for: No Acute Distress Head Exam: Positive for: ATRAUMATIC, NORMOCEPHALIC Skin: Positive for: Normal Color, Warm, Dry Eye Exam: Positive for: Normal appearance, EOMI, PERRL Neck: Positive for: Normal, Painless ROM Cardiovascular/Chest: Positive for: Regular Rate, Rhythm. Negative for: Murmur Respiratory: Positive for: Normal Breath Sounds. Negative for: Respiratory Distress Gastrointestinal/Abdominal: Positive for: Normal Exam, Soft. Negative for: Tenderness Back: Positive for: Normal Inspection. Negative for: L CVA Tenderness, R CVA Tenderness, Vertebral Tenderness Extremity: Positive for: Normal ROM. Negative for: Pedal Edema, Deformity Neurologic/Psych: Positive for: Alert, Oriented. Negative for: Motor/Sensory Deficits - Laboratory Results Result Diagrams: 06/26/18 19:53 06/26/18 19:53 - ECG O2 Sat by Pulse Oximetry: 98 (RA) Pulse Ox Interpretation: Normal Medical Decision Making Medical Decision Making: Time: 1927 Impression: Symptomatic HTN and chest pain Differentials include Hypertensive Urgency and complications Rule out ACS Plan: -- EKG -- BMP -- Troponin I -- CBC with differentials -- Norvasc 5 mg PO -- Tylenol 650 mg PO Scribe Attestation: Documented by Lauryn Birch acting as a scribe for Lucas Stauffer MD. Provider Scribe Attestation: All medical record entries made by the Scribe were at my direction and personally dictated by me. I have reviewed the chart and agree that the record accurately reflects my personal performance of the history, physical exam, medical decision making, and the department course for this patient. I have also personally directed, reviewed, and agree with the discharge instructions and disposition. Disposition - Clinical Impression Clinical Impression: Cocaine abuse, Chest pain - Patient ED Disposition Is Patient to be Admitted: No Doctor Will See Patient In The: Office Counseled Patient/Family Regarding: Studies Performed, Diagnosis, Need For Followup - Disposition Disposition Time: 00:40 Condition: FAIR - Pt Status Changed To: Hospital Disposition Of: Observation - POA Present On Arrival: None
[2018-06-26 19:59] LABS: BASO # 0.1 K/uL (0.0-0.2); BASO % 0.8 % (0.0-2.0); EOS # 0.1 K/uL (0.0-0.7); EOS % 0.9 % (0.0-4.0); HEMOGLOBIN 13.4 g/dL (12.0-18.0); LYMPH # 1.1 K/uL (1.0-4.3); LYMPH % 17.5 % (20.0-40.0); MEAN CELL VOLUME 84.3 fl (80.0-94.0); MEAN CORPUSCULAR HEMOGLOBIN 27.3 pg (27.0-31.0); MEAN CORPUSCULAR HGB CONC 32.4 g/dL (33.0-37.0); MEAN PLATELET VOLUME 9.4 fl (7.2-11.7); MONO # 0.7 K/uL (0.0-0.8); MONO % 11.2 % (0.0-10.0); NEUT # 4.4 K/uL (1.8-7.0); NEUT % 69.6 % (50.0-75.0); RBC 4.91 Mil/uL (4.40-5.90); RED CELL DISTRIBUTION WIDTH 14.6 % (11.5-14.5); WHITE BLOOD COUNT 6.4 K/uL (4.8-10.8)
[2018-06-26 20:23] LABS: BLOOD UREA NITROGEN 19 mg/dl (9-20); CALCIUM 9.2 mg/dL (8.4-10.2); GFR NON-AFRICAN AMERICAN > 60
[2018-06-27 00:24] LABS: BARBITURATES, UR NEGATIVE (NEGATIVE); BENZODIAZEPINES, UR NEGATIVE (NEGATIVE); OPIATES, UR POSITIVE (NEGATIVE); PHENCYCLIDINE, UR NEGATIVE (NEGATIVE)
--- NOTE | 2018-06-27 09:52 | RAD ---
Date of service: 06/27/2018 HISTORY: chest pain COMPARISON: No prior. FINDINGS: LUNGS: No active pulmonary disease. PLEURA: No significant pleural effusion identified, no pneumothorax apparent. CARDIOVASCULAR: Normal. OSSEOUS STRUCTURES: No significant abnormalities. VISUALIZED UPPER ABDOMEN: Normal. OTHER FINDINGS: None. IMPRESSION: No active disease.
--- NOTE | 2018-06-27 10:50 | CARD ---
APPROVED REPORT Date of service: 06/26/2018 <Conclusion> Sinus bradycardia Possible Left atrial enlargement Left ventricular hypertrophy Abnormal ECG
--- NOTE | 2018-06-27 18:21 | HP ---
CHIEF COMPLAINT: Chest pain. HISTORY OF PRESENT ILLNESS: This is a 62-year-old male, known case of hypertension, but has not seen a doctor for about a year and was not taking any medication. Also has history of polysubstance abuse, was having dizziness and lightheadedness. The patient was brought to emergency room and was admitted for further management. REVIEW OF SYSTEMS: Positive for chest pain. Review of system otherwise is negative for headache, dizziness, syncope, loss of consciousness, shortness of breath, nausea, vomiting, diarrhea, constipation, any knee joint or extremity pain. Review of systems of all other organ systems are unremarkable. PAST MEDICAL HISTORY: Significant for hypertension for about one year, for which the patient has not seen a doctor for about a year and is not taking any medication. The patient also has arthritis, back problem, rheumatoid arthritis, chronic pain, and anemia. PAST SURGICAL HISTORY: Remarkable for foot surgery. PERSONAL HISTORY: The patient is a smoker, alcohol abuser, and substance abuser. MEDICATIONS: The patient is not on any medication at this time. ALLERGIES: THE PATIENT IS NOT ALLERGIC TO ANY MEDICATION. FAMILY HISTORY: Noncontributory. PHYSICAL EXAMINATION: GENERAL: Well built, well nourished 62-year-old male, in no acute distress. VITAL SIGNS: Temperature afebrile 98.5, pulse 57, respirations 19, blood pressure 161/102, respirations 19, saturation is 99%. HEENT: Pupils are reacting to light. No JVD. No thyromegaly. No lymphadenopathy. No nystagmus. Normocephalic, atraumatic scalp. HEART EXAM: S1, S2, normal and regular. No significant murmur, gallop, or rubs are heard. LUNGS: Shows good bilateral air exchange. No rales or rhonchi. ABDOMEN: Soft, and nontender. No organomegaly. No fluid. Bowel sounds are present and normal. EXTREMITIES: No edema. No calf swelling. No tenderness. No acute ischemia. COPY WORKER: Essentially unchanged and there is no sign of any acute focal motor, sensory, or neurological deficits. SKIN: Reveals multiple tattoos. DIAGNOSTIC DATA: Available diagnostic data reviewed. Telemetry monitoring does not show significant arrhythmias. EKG shows normal sinus rhythm without any acute ST-T changes. WBC 6.4, hemoglobin 13.4, hematocrit 41.4, platelet 180. Sodium 140, potassium 4.3, chloride 104, bicarb 28, BUN 19, creatinine 1.1. Troponin two sets are negative. Toxicology is positive for opioids and cocaine. ADMITTING IMPRESSION: Chest pain, rule out acute coronary syndrome, polysubstance abuse, uncontrolled, hypertension. PLAN: As ordered. Case and plan discussed with the patient. Que Nichole MD
[2018-06-28 07:08] LABS: HEMOGLOBIN 14.6 g/dL (12.0-18.0); MEAN CELL VOLUME 82.8 fl (80.0-94.0); MEAN CORPUSCULAR HEMOGLOBIN 27.4 pg (27.0-31.0); MEAN CORPUSCULAR HGB CONC 33.1 g/dL (33.0-37.0); RBC 5.33 Mil/uL (4.40-5.90); RED CELL DISTRIBUTION WIDTH 14.8 % (11.5-14.5); WHITE BLOOD COUNT 7.2 K/uL (4.8-10.8)
[2018-06-28 07:14] LABS: ALBUMIN 3.9 g/dL (3.5-5.0); ALT/SGPT 25 U/L (21-72); AST/SGOT 22 U/L (17-59); BLOOD UREA NITROGEN 19 mg/dl (9-20); CALCIUM 9.6 mg/dL (8.4-10.2); GFR NON-AFRICAN AMERICAN > 60; HDL CHOLESTEROL 54 MG/DL (30-70)
[2018-06-28 07:24] LABS: LDL CHOLESTEROL 93 mg/dL (0-129)
--- NOTE | 2018-06-28 11:26 | PN ---
DATE: 06/28/2018 SUBJECTIVE: The patient seen and examined. Interim events noted. Cardiology consult is pending. The patient is in progressive care unit on telemetry monitoring with police escort. The patient is sleeping, arousable. Denies any specific complaint. No chest pain. No shortness of breath. No specific issue reported by nursing staff. PHYSICAL EXAMINATION: GENERAL: The patient is in no acute distress. VITAL SIGNS: Stable. HEART: S1 and S2. Normal and regular. LUNGS: Good bilateral air exchange. ABDOMEN: Soft and nontender. EXTREMITIES: No edema. No calf swelling. No tenderness. No acute ischemia. GENERAL INTERNIST AND PHYSICIAN LEADER: Exam is essentially unchanged. DIAGNOSTIC DATA: Available diagnostic data reviewed. Telemetry monitoring does not reveal significant arrhythmia. ASSESSMENT AND PLAN: Overall, the patient's general medical condition is stable. Plan as ordered. Que Nichole MD
--- NOTE | 2018-06-29 13:07 | PN ---
DATE: 06/29/2018 SUBJECTIVE: The patient seen and examined. Interim events noted. Cardiology . The patient remains in progressive care unit, on telemetry . The patient is sleeping, arousable, feels okay. Denies any chest pain. No shortness of breath. PHYSICAL EXAMINATION: GENERAL: The patient is in no acute distress. VITAL SIGNS: Stable. HEART: S1 and S2, normal and regular. LUNGS: Good bilateral air exchange. ABDOMEN: Soft, nontender. EXTREMITIES: No edema. No calf swelling. No tenderness. No acute ischemia. SYSTEMS PROTECTION TECHNICIAN: Exam is essentially unchanged. DIAGNOSTIC DATA: Available diagnostic data reviewed. Telemetry monitoring does not reveal significant arrhythmias. ASSESSMENT AND PLAN: Overall, the patient's general medical condition is stable. Plan as ordered. Que Nichole MD
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
--- NOTE | 2018-06-30 12:15 | CP.PCM.PCO ---
Physician Communication Note - Physician Communication Note Physician Communication Note: Cleared by cardiology and medicine team for psych
[2018-06-30 16:22] VITALS: BP 145/89; PULSE 64; RESP 20; TEMP 99.4; O2SAT 100
== END 2018-06-30 18:07 | disposition home or self-care (01) ==
LOC: H.ER 18:33 → H.ERHOLD 06-27 00:42 → H.TEL 06-27 09:55
PROVIDERS: ADMIT Internal Medicine; ATTEND Internal Medicine
DX: R07.9 Chest pain, unspecified (principal); F14.10 Cocaine abuse, uncomplicated; F10.10 Alcohol abuse, uncomplicated; I10 Essential (primary) hypertension; G89.29 Other chronic pain; M06.9 Rheumatoid arthritis, unspecified; D64.9 Anemia, unspecified; M19.90 Unspecified osteoarthritis, unspecified site; F17.200 Nicotine dependence, unspecified, uncomplicated
CPT/HCPCS: 36415; 71045; 80048; 80053; 80061; 80320; 80324; 80345; 80346; 80349; 80353; 80358; 80361; 82607; 83735; 83992; 84100; 84443; 84484; 85025; 85027; 93005; 99285; G0378; J3420

== ENCOUNTER 2018-07-22 12:28 | Emergency (ER) | payer OTHER ==
[2018-07-22 12:28] VITALS: BMI 46.2
[2018-07-22 14:02] LABS: BASO % 0.4 % (0.0-2.0); EOS # 0.1 K/uL (0.0-0.7); EOS % 1.9 % (0.0-4.0); HEMOGLOBIN 13.3 g/dL (12.0-18.0); LYMPH % 14.5 % (20.0-40.0); MEAN CELL VOLUME 83.3 fl (80.0-94.0); MEAN CORPUSCULAR HEMOGLOBIN 27.7 pg (27.0-31.0); MEAN CORPUSCULAR HGB CONC 33.3 g/dL (33.0-37.0); MEAN PLATELET VOLUME 9.6 fl (7.2-11.7); MONO # 0.7 K/uL (0.0-0.8); MONO % 10.4 % (0.0-10.0); NEUT # 4.9 K/uL (1.8-7.0); NEUT % 72.8 % (50.0-75.0); RBC 4.81 Mil/uL (4.40-5.90); RED CELL DISTRIBUTION WIDTH 14.9 % (11.5-14.5); WHITE BLOOD COUNT 6.7 K/uL (4.8-10.8)
[2018-07-22 14:23] LABS: ALB/GLOB RATIO 1.1 (1.0-2.1); ALBUMIN 4.1 g/dL (3.5-5.0); ALT/SGPT 28 U/L (21-72); AST/SGOT 31 U/L (17-59); BLOOD UREA NITROGEN 25 mg/dl (9-20); CALCIUM 9.6 mg/dL (8.4-10.2); GFR NON-AFRICAN AMERICAN > 60
[2018-07-22 15:16] LABS: SQUAMOUS EPITHIAL 1 /hpf (0-5); URINE AMORPHOUS SEDIMENT RARE /ul (<OCC); URINE BILIRUBIN NEGATIVE (NEGATIVE); URINE BLOOD SMALL (NEGATIVE); URINE CLARITY CLOUDY (Clear); URINE COLOR YELLOW (YELLOW); URINE GLUCOSE (UA) NEG (Normal); URINE LEUKOCYTE ESTERASE NEG Leu/uL (Negative); URINE PROTEIN NEGATIVE (NEGATIVE); URINE UROBILINOGEN 0.2-1.0 mg/dL (0.2-1.0)
[2018-07-22 15:24] LABS: BARBITURATES, UR NEGATIVE (NEGATIVE); BENZODIAZEPINES, UR POSITIVE (NEGATIVE); OPIATES, UR POSITIVE (NEGATIVE); PHENCYCLIDINE, UR NEGATIVE (NEGATIVE)
--- NOTE | 2018-07-22 15:40 | ED PDOC ---
HPI: Psych/Substance Abuse Time Seen by Provider: 07/22/18 12:59 Chief Complaint (Nursing): Substance Abuse Chief Complaint (Provider): Substance Abuse History Per: Patient History/Exam Limitations: no limitations Onset/Duration Of Symptoms: Hrs Modifying Factor(s): Narcotics Additional Complaint(s): Lamberto Small is a 62 year old male with a past medical history of hypertension, angina, arthritis, and anemia who was brought to the ED for evaluation of possible drug overdose. Patient admits to 2 bags of heroin and was given Narcan on the field. He offers no other medical complaints at this time. PMD: none provided Past Medical History Reviewed: Historical Data, Nursing Documentation, Vital Signs Vital Signs: Last Vital Signs Temp 98.7 F 07/22/18 12:35 Pulse 76 07/22/18 12:35 Resp 20 07/22/18 12:35 BP 145/98 H 07/22/18 12:35 Pulse Ox 99 07/22/18 12:35 - Medical History PMH: Anemia, Arthritis, Back Problems, HTN, Rheumatoid Arthritis, Chronic Pain Denies: Diabetes, Hepatitis, HIV, Chronic Kidney Disease, Seizures, Sexually Transmitted Disease - Surgical History Other surgeries: orthopedic surgery - Family History Family History: States: CAD, Hypertension - Social History Current smoker - smoking cessation education provided: Yes Alcohol: Social Drugs: Opiates - Immunization History Hx Tetanus Toxoid Vaccination: No Hx Influenza Vaccination: Yes Hx Pneumococcal Vaccination: Yes - Home Medications Home Medications: Ambulatory Orders Medication Instructions Recorded Carvedilol [Coreg] 6.25 mg PO Q12 #30 tab 06/30/18 amLODIPine [Norvasc] 10 mg PO DAILY #30 tab 06/30/18 Naloxone HCl [Narcan] 1 spray NS ONCE PRN #1 spray 07/22/18 - Allergies Allergies/Adverse Reactions: Allergies Allergy/AdvReac Type Severity Reaction Status Date / Time No Known Allergies Allergy Verified 07/22/18 12:41 Review of Systems ROS Statement: Except As Marked, All Systems Reviewed And Found Negative Constitutional: Positive for: Other (possible overdose) Physical Exam - Reviewed Nursing Documentation Reviewed: Yes Vital Signs Reviewed: Yes - Physical Exam Appears: Positive for: Well, Non-toxic, No Acute Distress Head Exam: Positive for: ATRAUMATIC, NORMAL INSPECTION, NORMOCEPHALIC Skin: Positive for: Normal Color, Warm, DRY Eye Exam: Positive for: EOMI, Normal appearance, PERRL ENT: Positive for: Normal ENT Inspection Neck: Positive for: Normal, Painless ROM Cardiovascular/Chest: Positive for: Regular Rate, Rhythm. Negative for: Murmur Respiratory: Positive for: Normal Breath Sounds. Negative for: Respiratory Distress Gastrointestinal/Abdominal: Positive for: Normal Exam, Soft. Negative for: Tenderness Back: Positive for: Normal Inspection Extremity: Positive for: Normal ROM Neurologic/Psych: Positive for: Alert, Oriented (x3). Negative for: Motor/Sensory Deficits - Laboratory Results Result Diagrams: 07/22/18 13:45 07/22/18 13:45 - ECG Interpretation Of ECG: NSR @ 60, LVH, no ST-T changes. O2 Sat by Pulse Oximetry: 99 (RA) Pulse Ox Interpretation: Normal Medical Decision Making Medical Decision Making: Time: 13:45 Impression: Possible Overdose Plan: --EKG --Alcohol Serum --CMP --Drug Screen --ED Urine Dipstick --CBC --Urinalysis 15:45 Patient has remained alert and oriented x3 in the ED during observation. He is currently eating a donut. Scribe Attestation: Documented by, Lina Jade acting as a scribe for Juana Barbosa MD. Provider Scribe Attestation: All medical record entries made by the Scribe were at my direction and personally dictated by me. I have reviewed the chart and agree that the record accurately reflects my personal performance of the history, physical exam, medical decision making, and the department course for this patient. I have also personally directed, reviewed, and agree with the discharge instructions and disposition. Disposition - Clinical Impression Clinical Impression: Heroin abuse - Disposition Referrals: [facility] [Outside] Disposition: Routine/Home Disposition Time: 15:39 Condition: IMPROVED Prescriptions: Naloxone HCl [Narcan] 1 spray NS ONCE PRN #1 spray PRN Reason: Opiate Reversal Instructions: Drug Abuse and Drug Addiction (DC), Drug Abuse Treatment Forms: [facility] ([facility])
[2018-07-22 16:07] VITALS: BP 138/71; PULSE 60; RESP 14; TEMP 98.6; O2SAT 98
--- NOTE | 2018-07-23 11:01 | CARD ---
APPROVED REPORT Date of service: 07/22/2018 EKG Measurement Heart [id number] 146P0 [id number] <Conclusion> Normal sinus rhythm Minimal voltage criteria for LVH, may be normal variant Borderline ECG
== END 2018-07-22 16:00 | disposition home or self-care (01) ==
LOC: H.ER 12:28
DX: F11.10 Opioid abuse, uncomplicated (principal); D64.9 Anemia, unspecified; G89.29 Other chronic pain; I10 Essential (primary) hypertension; M06.9 Rheumatoid arthritis, unspecified; F17.200 Nicotine dependence, unspecified, uncomplicated

== ENCOUNTER 2018-07-23 04:11 | Emergency (ER) | payer OTHER ==
[2018-07-23 04:12] VITALS: BMI 46.2
[2018-07-23 04:21] VITALS: TEMP 98.9
[2018-07-23 05:47] VITALS: O2SAT 96
[2018-07-23 05:48] LABS: BASO % 0.2 % (0.0-2.0); EOS % 0.4 % (0.0-4.0); LYMPH # 0.9 K/uL (1.0-4.3); LYMPH % 10.7 % (20.0-40.0); MEAN CELL VOLUME 84.7 fl (80.0-94.0); MEAN CORPUSCULAR HEMOGLOBIN 27.8 pg (27.0-31.0); MEAN CORPUSCULAR HGB CONC 32.9 g/dL (33.0-37.0); MEAN PLATELET VOLUME 9.9 fl (7.2-11.7); MONO # 0.6 K/uL (0.0-0.8); MONO % 7.5 % (0.0-10.0); NEUT # 6.7 K/uL (1.8-7.0); NEUT % 81.2 % (50.0-75.0); NRBC % 0.1 % (0.0-0.0); RBC 5.02 Mil/uL (4.40-5.90); RED CELL DISTRIBUTION WIDTH 14.9 % (11.5-14.5); WHITE BLOOD COUNT 8.3 K/uL (4.8-10.8)
[2018-07-23 05:56] LABS: ACETAMINOPHEN < 10.0 ug/ml (10.0-30.0); SALICYLATE < 1.0 mg/dl
[2018-07-23 06:05] LABS: BARBITURATES, UR NEGATIVE (NEGATIVE)
--- NOTE | 2018-07-23 06:06 | ED PDOC ---
HPI: Psych/Substance Abuse Time Seen by Provider: 07/23/18 04:15 Chief Complaint (Nursing): Dizziness/Lightheaded Chief Complaint (Provider): Body pain after heroin abuse History Per: Patient History/Exam Limitations: no limitations Onset/Duration Of Symptoms: Hrs Additional Complaint(s): Lamberto Small, a 62 year old male with a past medical history of hypertension and substance abuse, presents to the ED complaining of body pain after abusing heroin. [facility] and used 2 bags of heroin and is now requesting detox. PCP: none provided Past Medical History Vital Signs: Last Vital Signs Temp 98.9 F 07/23/18 04:19 Pulse 68 07/23/18 05:46 Resp 23 07/23/18 05:46 BP 132/77 07/23/18 05:46 Pulse Ox 96 07/23/18 05:46 - Medical History PMH: Anemia, Arthritis, Back Problems, HTN, Rheumatoid Arthritis, Chronic Pain Denies: Diabetes, Hepatitis, HIV, Chronic Kidney Disease, Seizures, Sexually Transmitted Disease - Surgical History Surgical History: No Surg Hx - Family History Family History: States: Unknown Family Hx, CAD, Hypertension - Social History Current smoker - smoking cessation education provided: Yes (half pack per day) Drugs: Opiates - Immunization History Hx Tetanus Toxoid Vaccination: No Hx Influenza Vaccination: Yes Hx Pneumococcal Vaccination: Yes - Home Medications Home Medications: Ambulatory Orders Medication Instructions Recorded RX: Carvedilol [Coreg] 6.25 mg PO Q12 #30 tab 06/30/18 RX: amLODIPine [Norvasc] 10 mg PO DAILY #30 tab 06/30/18 Naloxone HCl [Narcan] 1 spray NS ONCE PRN #1 spray 07/22/18 - Allergies Allergies/Adverse Reactions: Allergies Allergy/AdvReac Type Severity Reaction Status Date / Time No Known Allergies Allergy Verified 07/22/18 12:41 Review of Systems Constitutional: Positive for: Other (body pain) Physical Exam - Reviewed Nursing Documentation Reviewed: Yes Vital Signs Reviewed: Yes - Physical Exam Appears: Positive for: No Acute Distress Head Exam: Positive for: ATRAUMATIC, NORMAL INSPECTION, NORMOCEPHALIC Skin: Positive for: Normal Color, Warm, DRY Eye Exam: Positive for: EOMI, Normal appearance, PERRL ENT: Positive for: Normal ENT Inspection Neck: Positive for: Normal Cardiovascular/Chest: Positive for: Regular Rate, Rhythm Respiratory: Positive for: CNT, Normal Breath Sounds Gastrointestinal/Abdominal: Positive for: Normal Exam Extremity: Positive for: Normal ROM Neurologic/Psych: Positive for: Alert, Oriented. Negative for: Motor/Sensory Deficits - Laboratory Results Result Diagrams: 07/23/18 05:13 07/23/18 05:13 - ECG O2 Sat by Pulse Oximetry: 96 - Radiology X-Ray: Interpreted by Me, Viewed By Me X-Ray Interpretation: No Acute Disease Medical Decision Making Medical Decision Making: Time: 05:13 Initial Impression: drug abuse pt requesting detox Initial Plan: --Acetaminophen --Alcohol serum --CMP --Drug screen --Salicylate --Crisis evaluation --CBC --Glucose --Uninalysis 06:20 EKG results show sinus bradycardia at 53 bpm, a repeat pulse noted 78 Patient is awaiting UA results. Slightly elevated potassium (5.4). ordered kayexelate UDS is positive for cocaine and opiates. 06:44 --Patient has trace leukocytes in urine. Ordered Macrobid. cxr reviewed by me, no acute infiltrate noted 06:52 Medically cleared for detox. Scribe Attestation: Documented by Sherron Jones acting as a scribe for Parisa Bedolla MD Provider Scribe Attestation: All medical record entries made by the Scribe were at my direction and personally dictated by me. I have reviewed the chart and agree that the record accurately reflects my personal performance of the history, physical exam, medical decision making, and the department course for this patient. I have also personally directed, reviewed, and agree with the discharge instructions and disposition. Disposition - Clinical Impression Clinical Impression: Drug abuse - Patient ED Disposition Is Patient to be Admitted: Transfer of Care - Disposition Disposition: Transfer of Care Disposition Time: 07:00 Condition: STABLE Forms: [employer] ([place])
[2018-07-23 06:12] LABS: BENZODIAZEPINES, UR POSITIVE (NEGATIVE); OPIATES, UR POSITIVE (NEGATIVE); PHENCYCLIDINE, UR NEGATIVE (NEGATIVE)
[2018-07-23 06:12] LABS: ALB/GLOB RATIO 1.1 (1.0-2.1); ALBUMIN 4.6 g/dL (3.5-5.0); ALT/SGPT 34 U/L (21-72); AST/SGOT 35 U/L (17-59); BLOOD UREA NITROGEN 26 mg/dl (9-20); CALCIUM 10.3 mg/dL (8.4-10.2); GFR NON-AFRICAN AMERICAN 52
[2018-07-23 06:31] LABS: SQUAMOUS EPITHIAL 1 /hpf (0-5); URINE BILIRUBIN NEGATIVE (NEGATIVE); URINE BLOOD SMALL (NEGATIVE); URINE CLARITY SLIGHTY-CLOUDY (Clear); URINE COLOR YELLOW (YELLOW); URINE GLUCOSE (UA) NEG (Normal); URINE HYALINE CAST 0-2 /hpf (0-2); URINE LEUKOCYTE ESTERASE TRACE Leu/uL (Negative); URINE PROTEIN 30 mg/dL (NEGATIVE); URINE UROBILINOGEN 0.2-1.0 mg/dL (0.2-1.0)
[2018-07-23] MEDS ORDERED: Sod Polystyrene Sulf 15 gm/60 ml Susp PO ONE (06:55)
[2018-07-23] MEDS ORDERED: Sod Polystyrene Sulf 15 gm/60 ml Susp ONE (07:00)
--- NOTE | 2018-07-23 09:32 | ED PDOC ---
- Laboratory Results Result Diagrams: 07/23/18 05:13 07/23/18 05:13 - ECG O2 Sat by Pulse Oximetry: 96 - Progress Re-evaluation Time: 09:31 Condition: Re-examined (Awake alert oriented x 3 no focal neuro deficits. denies SI/HI) Disposition - Clinical Impression Clinical Impression: Drug abuse - POA Present On Arrival: None - Disposition Disposition: Routine/Home Disposition Time: 09:32 Condition: STABLE Instructions: Drug Abuse and Drug Addiction (DC) Forms: [employer] (Iraqi)
[2018-07-23 10:05] VITALS: BP 136/80; PULSE 70; RESP 18
--- NOTE | 2018-07-23 10:23 | RAD ---
Date of service: 07/23/2018 HISTORY: clrnce COMPARISON: 06/27/2018 FINDINGS: LUNGS: No active pulmonary disease. PLEURA: No significant pleural effusion identified, no pneumothorax apparent. CARDIOVASCULAR: No atherosclerotic calcification present Normal. OSSEOUS STRUCTURES: Right glenohumeral osteoarthritis. Mild superior subluxation of both humeral head with remodeling of the undersurface of the acromion. VISUALIZED UPPER ABDOMEN: Normal. OTHER FINDINGS: None. IMPRESSION: No active disease.
== END 2018-07-23 09:35 | disposition home or self-care (01) ==
LOC: H.ER 04:11
DX: F11.10 Opioid abuse, uncomplicated (principal); F17.210 Nicotine dependence, cigarettes, uncomplicated; I10 Essential (primary) hypertension

== ENCOUNTER 2018-07-24 15:17 | Emergency (ER) | payer OTHER ==
[2018-07-24 15:25] VITALS: TEMP 98
[2018-07-24] MEDS ORDERED: Naloxone 0.4 mg/ml Inj (Adult) IV STA (15:38)
--- NOTE | 2018-07-24 15:44 | ED PDOC ---
HPI: Psych/Substance Abuse Time Seen by Provider: 07/24/18 15:23 Chief Complaint (Nursing): Substance Abuse Chief Complaint (Provider): Substance Abuse ED Caveat: Acuity of Condition, Intoxicated History/Exam Limitations: intoxication Additional Complaint(s): Patient is a 62 y/o male who was brought to the ED by [facility] and was found poorly responsive on the street reporting of heroin use. Patient is unable to give reliable history due to excessive lethargy. Patient does admit to snorting heroin. Past Medical History Reviewed: Unable To Obtain Vital Signs: Last Vital Signs Temp 98 F 07/24/18 15:20 Pulse 56 L 07/24/18 15:20 Resp 7 L 07/24/18 15:20 BP 135/76 07/24/18 15:20 Pulse Ox 88 L 07/24/18 15:20 - Family History Family History: States: Unknown Family Hx - Social History Drugs: Opiates (heroin) - Home Medications Home Medications: Ambulatory Orders Medication Instructions Recorded Naloxone HCl [Narcan] 4 mg NS ONCE PRN #1 spray 07/24/18 - Allergies Allergies/Adverse Reactions: Allergies Allergy/AdvReac Type Severity Reaction Status Date / Time Unobtainable Allergy Verified 07/24/18 15:20 Review of Systems Review Of Systems: ROS cannot be obtained secondary to pt's inabilty to answer questions. Physical Exam - Reviewed Nursing Documentation Reviewed: Yes Vital Signs Reviewed: Yes - Physical Exam Appears: Positive for: No Acute Distress (acute neurologic distress; responsive to voice does not maintain alertness) Head Exam: Positive for: ATRAUMATIC, NORMOCEPHALIC Skin: Positive for: Warm, Dry Eye Exam: Positive for: EOMI, PERRL ENT: Negative for: Pharyngeal Erythema, Tonsillar Exudate Neck: Positive for: Painless ROM, Supple Cardiovascular/Chest: Positive for: Regular Rate, Rhythm. Negative for: Murmur Respiratory: Positive for: Normal Breath Sounds, Respiratory Distress (slow resp rate with shallow breathing) Gastrointestinal/Abdominal: Positive for: Soft. Negative for: Tenderness Back: Positive for: Normal Inspection. Negative for: Decreased ROM Extremity: Positive for: Normal ROM. Negative for: Deformity Lymphatic: Negative for: Adenopathy Neurologic/Psych: Positive for: Other (responds to loud stimuli only briefly). Negative for: Alert, Oriented - Laboratory Results Result Diagrams: 07/24/18 15:35 07/24/18 15:35 - ECG ECG Rhythm: Positive for: Sinus Bradycardia, Nonspecific Changes O2 Sat by Pulse Oximetry: 88 (RA) Pulse Ox Interpretation: Abnormal Medical Decision Making Medical Decision Making: Time: 15:29 Impression: Heroin OD Initial Plan: EKG Alcohol serum CMP Drug screen Magnesium Phosphorous CBC w/ diff Narcan 0.2 mg IV Pt more alert post narcan, maintaining respirations. Will continue to observe until narcan wears off for possible rebound intoxication. Time 16:57 Patient is awake and orientated with no signs of withdrawal. Eat full in meal in ER. Patient is post narcan for two hours. Medically stable for discharge. Drug addiction resource was provided. Counseling was provided and all questions were answered regarding diagnosis. There is agreement to discharge plan. Return if symptoms persist or worsen. Scribe Attestation: Documented by Hamlet Plata, acting as a scribe for Arlet Araya MD. Provider Scribe Attestation: All medical record entries made by the Scribe were at my direction and personally dictated by me. I have reviewed the chart and agree that the record accurately reflects my personal performance of the history, physical exam, medical decision making, and the department course for this patient. I have also personally directed, reviewed, and agree with the discharge instructions and disposition. Disposition - Clinical Impression Clinical Impression: Opiate use - Disposition Referrals: [facility] [Outside] Disposition: Routine/Home Disposition Time: 16:55 Condition: IMPROVED Additional Instructions: DON'T DO DRUGS Prescriptions: Naloxone HCl [Narcan] 4 mg NS ONCE PRN #1 spray PRN Reason: opiate overdose Instructions: Drug Abuse and Drug Addiction (DC), Narcotic Overdose (DC)
[2018-07-24 16:03] LABS: BASO % 0.4 % (0.0-2.0); EOS # 0.2 K/uL (0.0-0.7); LYMPH # 1.7 K/uL (1.0-4.3); MEAN CELL VOLUME 85.3 fl (80.0-94.0); MEAN CORPUSCULAR HEMOGLOBIN 27.3 pg (27.0-31.0); MEAN PLATELET VOLUME 10.2 fl (7.2-11.7); MONO # 0.9 K/uL (0.0-0.8); MONO % 11.7 % (0.0-10.0); NEUT # 4.9 K/uL (1.8-7.0); NEUT % 63.9 % (50.0-75.0); RBC 4.78 Mil/uL (4.40-5.90); RED CELL DISTRIBUTION WIDTH 15.3 % (11.5-14.5); WHITE BLOOD COUNT 7.7 K/uL (4.8-10.8)
[2018-07-24 16:13] LABS: ALB/GLOB RATIO 1.1 (1.0-2.1); ALBUMIN 3.9 g/dL (3.5-5.0); ALT/SGPT 29 U/L (21-72); AST/SGOT 32 U/L (17-59); BLOOD UREA NITROGEN 17 mg/dl (9-20); CALCIUM 9.2 mg/dL (8.4-10.2); GFR NON-AFRICAN AMERICAN > 60
[2018-07-24] MEDS ORDERED: Naloxone 0.4 mg/ml Inj (Adult) ONE (16:47)
[2018-07-24 17:13] VITALS: BP 122/74; PULSE 62; RESP 16
[2018-07-24 18:02] VITALS: O2SAT 88
--- NOTE | 2018-07-25 12:13 | CARD ---
APPROVED REPORT Date of service: 07/24/2018 EKG Measurement Heart [id number] IN 128P52 [id number] <Conclusion> Sinus bradycardia Voltage criteria for left ventricular hypertrophy Abnormal ECG
== END 2018-07-24 17:15 | disposition home or self-care (01) ==
LOC: EDBD 15:17 → H.ER 15:17 → MERGE 15:17 → H.ER 17:15
DX: F11.20 Opioid dependence, uncomplicated (principal); I51.7 Cardiomegaly
CPT/HCPCS: 80053; 80320; 83735; 84100; 85025; 93005; 96374; 99285; J2310

== ENCOUNTER 2018-07-31 16:14 | Observation (INO) | payer OTHER ==
[2018-07-31 16:14] VITALS: BMI 46.2
--- NOTE | 2018-07-31 16:44 | ED PDOC ---
HPI: Chest Pain Time Seen by Provider: 07/31/18 16:31 Chief Complaint (Nursing): Chest Pain Chief Complaint (Provider): Chest Pain History Per: Patient History/Exam Limitations: no limitations Onset/Duration Of Symptoms: Hrs (x2) Additional Complaint(s): 62 years old male with history of cocaine and heroin abuse presents to ER for evaluation of non radiating chest pain onset 2 hours. Patient admits to doing cocaine and heroin yesterday and today. He denies shortness of breath. PMD: non provided Past Medical History Reviewed: Historical Data, Nursing Documentation, Vital Signs Vital Signs: Last Vital Signs Temp 98.1 F 07/31/18 16:24 Pulse 54 L 07/31/18 16:38 Resp 20 07/31/18 16:24 BP 108/63 07/31/18 16:38 Pulse Ox 99 07/31/18 16:24 - Medical History PMH: Anemia, Arthritis, Back Problems, HTN, Rheumatoid Arthritis, Chronic Pain Denies: Diabetes, Hepatitis, HIV, Chronic Kidney Disease, Seizures, Sexually Transmitted Disease - Surgical History Surgical History: No Surg Hx - Family History Family History: States: Unknown Family Hx, CAD, Hypertension - Social History Current smoker - smoking cessation education provided: Yes Alcohol: Social Drugs: Cocaine, Other (Heroin) - Immunization History Hx Tetanus Toxoid Vaccination: No Hx Influenza Vaccination: Yes Hx Pneumococcal Vaccination: Yes - Home Medications Home Medications: Ambulatory Orders Medication Instructions Recorded Carvedilol [Coreg] 6.25 mg PO Q12 #30 tab 06/30/18 amLODIPine [Norvasc] 10 mg PO DAILY #30 tab 06/30/18 Naloxone HCl [Narcan] 1 spray NS ONCE PRN #1 spray 07/22/18 Naloxone HCl [Narcan] 4 mg NS ONCE PRN #1 spray 07/24/18 - Allergies Allergies/Adverse Reactions: Allergies Allergy/AdvReac Type Severity Reaction Status Date / Time No Known Allergies Allergy Verified 07/31/18 16:24 Review of Systems ROS Statement: Except As Marked, All Systems Reviewed And Found Negative Cardiovascular: Positive for: Chest Pain Respiratory: Negative for: Shortness of Breath Physical Exam - Reviewed Nursing Documentation Reviewed: Yes Vital Signs Reviewed: Yes - Physical Exam Appears: Positive for: Non-toxic, No Acute Distress Head Exam: Positive for: ATRAUMATIC, NORMOCEPHALIC Skin: Positive for: Normal Color, Warm, Dry Eye Exam: Positive for: Normal appearance, EOMI, PERRL Cardiovascular/Chest: Positive for: Regular Rate, Rhythm. Negative for: Murmur Respiratory: Positive for: Normal Breath Sounds. Negative for: Wheezing Extremity: Positive for: Normal ROM. Negative for: Pedal Edema, Swelling Neurologic/Psych: Positive for: Alert, Oriented (x3) - Laboratory Results Result Diagrams: 07/31/18 17:04 07/31/18 17:04 - ECG O2 Sat by Pulse Oximetry: 99 (RA) Pulse Ox Interpretation: Normal Medical Decision Making Medical Decision Making: Time: 1635 Initial Plan: --CMP --Drug screen --Troponin I --CBC --Chest x-ray Scribe Attestation: Documented by Oly Peng, acting as a scribe for Noel Hogdes MD. Provider Scribe Attestation: All medical record entries made by the Scribe were at my direction and personally dictated by me. I have reviewed the chart and agree that the record accurately reflects my personal performance of the history, physical exam, medical decision making, and the department course for this patient. I have also personally directed, reviewed, and agree with the discharge instructions and disposition. Disposition - Clinical Impression Clinical Impression: Chest pain, Substance abuse - Patient ED Disposition Is Patient to be Admitted: Yes - Disposition Disposition Time: 18:04 Condition: FAIR Forms: [employer] (Yemeni) - Pt Status Changed To: Hospital Disposition Of: Observation - POA Present On Arrival: None
[2018-07-31 17:12] LABS: BASO % 0.9 % (0.0-2.0); EOS # 0.1 K/uL (0.0-0.7); EOS % 2.7 % (0.0-4.0); HEMOGLOBIN 13.2 g/dL (12.0-18.0); LYMPH % 19.6 % (20.0-40.0); MEAN CORPUSCULAR HEMOGLOBIN 27.6 pg (27.0-31.0); MEAN CORPUSCULAR HGB CONC 32.5 g/dL (33.0-37.0); MEAN PLATELET VOLUME 9.2 fl (7.2-11.7); MONO # 0.5 K/uL (0.0-0.8); MONO % 10.4 % (0.0-10.0); NEUT # 3.5 K/uL (1.8-7.0); NEUT % 66.4 % (50.0-75.0); RBC 4.78 Mil/uL (4.40-5.90); RED CELL DISTRIBUTION WIDTH 15.8 % (11.5-14.5); WHITE BLOOD COUNT 5.2 K/uL (4.8-10.8)
[2018-07-31 17:27] LABS: ALBUMIN 3.9 g/dL (3.5-5.0); ALT/SGPT 25 U/L (21-72); AST/SGOT 30 U/L (17-59); BLOOD UREA NITROGEN 16 mg/dl (9-20); CALCIUM 9.3 mg/dL (8.4-10.2); GFR NON-AFRICAN AMERICAN > 60
[2018-07-31 17:28] LABS: BARBITURATES, UR NEGATIVE (NEGATIVE); BENZODIAZEPINES, UR NEGATIVE (NEGATIVE); OPIATES, UR POSITIVE (NEGATIVE); PHENCYCLIDINE, UR NEGATIVE (NEGATIVE)
--- NOTE | 2018-07-31 17:34 | RAD ---
Date of service: 07/31/2018 HISTORY: Chest pain COMPARISON: 07/23/2018 TECHNIQUE: Chest PA and lateral FINDINGS: LUNGS: No active pulmonary disease. PLEURA: No significant pleural effusion identified. No pneumothorax apparent. CARDIOVASCULAR: No aortic atherosclerotic calcification present. No radiographic findings to suggest acute or significant cardiovascular disease. OSSEOUS STRUCTURES: No significant abnormalities. VISUALIZED UPPER ABDOMEN: Normal. OTHER FINDINGS: None. IMPRESSION: No active disease. No significant interval change compared to the prior examination(s).
[2018-08-01 07:21] LABS: BASO % 0.5 % (0.0-2.0); EOS # 0.2 K/uL (0.0-0.7); EOS % 4.5 % (0.0-4.0); HEMOGLOBIN 12.4 g/dL (12.0-18.0); LYMPH # 1.5 K/uL (1.0-4.3); LYMPH % 36.9 % (20.0-40.0); MEAN CELL VOLUME 83.8 fl (80.0-94.0); MEAN CORPUSCULAR HEMOGLOBIN 27.8 pg (27.0-31.0); MEAN CORPUSCULAR HGB CONC 33.2 g/dL (33.0-37.0); MEAN PLATELET VOLUME 9.1 fl (7.2-11.7); MONO # 0.4 K/uL (0.0-0.8); MONO % 10.1 % (0.0-10.0); NRBC % 0.3 % (0.0-0.0); RBC 4.45 Mil/uL (4.40-5.90); RED CELL DISTRIBUTION WIDTH 15.3 % (11.5-14.5); WHITE BLOOD COUNT 4.2 K/uL (4.8-10.8)
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
[2018-08-01 07:47] LABS: ALBUMIN 3.2 g/dL (3.5-5.0); ALT/SGPT 25 U/L (21-72); AST/SGOT 25 U/L (17-59); BLOOD UREA NITROGEN 13 mg/dl (9-20); CALCIUM 8.9 mg/dL (8.4-10.2); GFR NON-AFRICAN AMERICAN > 60
[2018-08-01] MEDS ORDERED: Enoxaparin 40 mg Syringe SC SCH ×2 (09:00)
[2018-08-01 13:04] VITALS: BP 137/85; PULSE 65; RESP 20; TEMP 98; O2SAT 99
--- NOTE | 2018-08-03 07:18 | CP.PCM.DIS ---
Provider - Provider Date of Admission: 07/31/18 18:03 Attending physician: Holly Aguirre MD Time Spent in preparation of Discharge (in minutes): 20 Diagnosis - Discharge Diagnosis (1) Chest pain Status: Acute Priority: Medium (2) Polysubstance abuse Status: Acute Hospital Course - Lab Results Lab Results: Most Recent Lab Values WBC 4.2 K/uL (4.8-10.8) L 08/01/18 05:40 RBC 4.45 Mil/uL (4.40-5.90) 08/01/18 05:40 Hgb 12.4 g/dL (12.0-18.0) 08/01/18 05:40 Hct 37.3 % (35.0-51.0) 08/01/18 05:40 MCV 83.8 fl (80.0-94.0) 08/01/18 05:40 MCH 27.8 pg (27.0-31.0) 08/01/18 05:40 MCHC 33.2 g/dL (33.0-37.0) 08/01/18 05:40 RDW 15.3 % (11.5-14.5) H 08/01/18 05:40 Plt Count 172 K/uL (130-400) 08/01/18 05:40 MPV 9.1 fl (7.2-11.7) 08/01/18 05:40 Neut % (Auto) 48.0 % (50.0-75.0) L 08/01/18 05:40 Lymph % (Auto) 36.9 % (20.0-40.0) 08/01/18 05:40 [place] % (Auto) 10.1 % (0.0-10.0) H 08/01/18 05:40 Eos % (Auto) 4.5 % (0.0-4.0) H 08/01/18 05:40 Baso % (Auto) 0.5 % (0.0-2.0) 08/01/18 05:40 Neut # (Auto) 2.0 K/uL (1.8-7.0) 08/01/18 05:40 Lymph # (Auto) 1.5 K/uL (1.0-4.3) 08/01/18 05:40 [place] # (Auto) 0.4 K/uL (0.0-0.8) 08/01/18 05:40 Eos # (Auto) 0.2 K/uL (0.0-0.7) 08/01/18 05:40 Baso # (Auto) 0.0 K/uL (0.0-0.2) 08/01/18 05:40 Sodium 139 mmol/l (132-148) 08/01/18 05:40 Potassium 4.1 MMOL/L (3.6-5.0) 08/01/18 05:40 Chloride 109 mmol/L (98-107) H 08/01/18 05:40 Carbon Dioxide 24 mmol/L (22-30) 08/01/18 05:40 Anion Gap 10 (10-20) 08/01/18 05:40 BUN 13 mg/dl (9-20) 08/01/18 05:40 Creatinine 1.2 mg/dl (0.8-1.5) 08/01/18 05:40 Est GFR ( Amer) > 60 08/01/18 05:40 Est GFR (Non-Af Amer) > 60 08/01/18 05:40 Random Glucose 97 mg/dL (75-110) 08/01/18 05:40 Calcium 8.9 mg/dL (8.4-10.2) 08/01/18 05:40 Total Bilirubin 0.2 mg/dl (0.2-1.3) 08/01/18 05:40 AST 25 U/L (17-59) 08/01/18 05:40 ALT 25 U/L (21-72) 08/01/18 05:40 Alkaline Phosphatase 37 U/L (38-126) L 08/01/18 05:40 Troponin I < 0.0120 ng/mL (0.00-0.120) 08/01/18 05:40 Total Protein 6.4 G/DL (6.3-8.2) 08/01/18 05:40 Albumin 3.2 g/dL (3.5-5.0) L 08/01/18 05:40 Globulin 3.2 gm/dL (2.2-3.9) 08/01/18 05:40 Albumin/Globulin Ratio 1.0 (1.0-2.1) 08/01/18 05:40 TSH 3rd Generation 2.84 mIU/ML (0.46-4.68) 08/01/18 05:40 Urine Opiates Screen Positive (NEGATIVE) H 07/31/18 17:04 Urine Methadone Screen Negative (NEGATIVE) 07/31/18 17:04 Ur Barbiturates Screen Negative (NEGATIVE) 07/31/18 17:04 Ur Phencyclidine Scrn Negative (NEGATIVE) 07/31/18 17:04 Ur Amphetamines Screen Negative (NEGATIVE) 07/31/18 17:04 U Benzodiazepines Scrn Negative (NEGATIVE) 07/31/18 17:04 U Oth Cocaine Metabols Positive (NEGATIVE) H 07/31/18 17:04 U Cannabinoids Screen Positive (NEGATIVE) H 07/31/18 17:04 Discharge Exam - Head Exam Head Exam: ATRAUMATIC, NORMAL INSPECTION, NORMOCEPHALIC Discharge Plan - Follow Up Plan Condition: FAIR Disposition: AGAINST MEDICAL ADVICE
--- NOTE | 2018-08-03 11:05 | CARD ---
APPROVED REPORT Date of service: 08/01/2018 EKG Measurement Heart [id number] DC 130P46 [id number] <Conclusion> Sinus bradycardia Left ventricular hypertrophy Abnormal ECG
== END 2018-08-01 14:57 | disposition left against medical advice (07) ==
LOC: H.ER 16:14 → H.ERHOLD 18:03 → H.TEL 21:15
PROVIDERS: ADMIT Internal Medicine; ATTEND Internal Medicine
DX: R07.9 Chest pain, unspecified (principal); F17.200 Nicotine dependence, unspecified, uncomplicated; I10 Essential (primary) hypertension; M06.9 Rheumatoid arthritis, unspecified; D64.9 Anemia, unspecified; F11.10 Opioid abuse, uncomplicated; F14.10 Cocaine abuse, uncomplicated; F45.9 Somatoform disorder, unspecified; G89.29 Other chronic pain; M19.90 Unspecified osteoarthritis, unspecified site; Z79.899 Other long term (current) drug therapy; M54.9 Dorsalgia, unspecified
CPT/HCPCS: 36415; 71046; 80053; 80324; 80345; 80346; 80349; 80353; 80358; 80361; 83992; 84443; 84484; 85025; 93005; 99285; G0378; J1650

== ENCOUNTER 2018-08-04 00:47 | Emergency (ER) | payer OTHER ==
[2018-08-04 00:48] VITALS: BMI 46.2
[2018-08-04 01:01] VITALS: RESP 18; TEMP 98.6; O2SAT 99
[2018-08-04 02:00] LABS: PROTHROMBIN TIME 11.8 Seconds (9.8-13.1)
[2018-08-04 02:02] LABS: PARTIAL THROMBOPLASTIN TIME 31.1 Seconds (25.6-37.1)
[2018-08-04 02:04] LABS: BASO % 0.7 % (0.0-2.0); EOS # 0.1 K/uL (0.0-0.7); EOS % 1.4 % (0.0-4.0); HEMOGLOBIN 13.1 g/dL (12.0-18.0); LYMPH # 1.3 K/uL (1.0-4.3); LYMPH % 20.9 % (20.0-40.0); MEAN CELL VOLUME 84.3 fl (80.0-94.0); MEAN CORPUSCULAR HEMOGLOBIN 27.4 pg (27.0-31.0); MEAN CORPUSCULAR HGB CONC 32.5 g/dL (33.0-37.0); MEAN PLATELET VOLUME 8.6 fl (7.2-11.7); MONO # 0.6 K/uL (0.0-0.8); MONO % 9.5 % (0.0-10.0); NEUT # 4.2 K/uL (1.8-7.0); NEUT % 67.5 % (50.0-75.0); NRBC % 0.1 % (0.0-0.0); RBC 4.79 Mil/uL (4.40-5.90); RED CELL DISTRIBUTION WIDTH 15.4 % (11.5-14.5); WHITE BLOOD COUNT 6.2 K/uL (4.8-10.8)
--- NOTE | 2018-08-04 02:14 | ED PDOC ---
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 Of note, patient was initially here visiting his girlfriend in the ED who is a known heroin addict, and after she was admitted, he checked himself in to secure a bed for the night. He admits to cocaine use earlier today. PMD: none provided Past Medical History Reviewed: Historical Data, Nursing Documentation, Vital Signs Vital Signs: Last Vital Signs Temp 98.6 F 08/04/18 00:58 Pulse 77 08/04/18 00:58 Resp 18 08/04/18 00:58 BP 170/104 H 08/04/18 00:58 Pulse Ox 99 08/04/18 00:58 - Medical History PMH: Anemia, Arthritis, Back Problems, HTN, Rheumatoid Arthritis, Chronic Pain Denies: Diabetes, Hepatitis, HIV, Chronic Kidney Disease, Seizures, Sexually Transmitted Disease - Family History Family History: States: Unknown Family Hx, CAD, Hypertension - Living Arrangements Living Arrangements: Other (homeless) - Social History Current smoker - smoking cessation education provided: Yes Drugs: Cocaine - Immunization History Hx Tetanus Toxoid Vaccination: No Hx Influenza Vaccination: Yes Hx Pneumococcal Vaccination: Yes - Home Medications Home Medications: Ambulatory Orders Medication Instructions Recorded Carvedilol [Coreg] 6.25 mg PO Q12 #30 tab 06/30/18 amLODIPine [Norvasc] 10 mg PO DAILY #30 tab 06/30/18 Naloxone HCl [Narcan] 1 spray NS ONCE PRN #1 spray 07/22/18 Naloxone HCl [Narcan] 4 mg NS ONCE PRN #1 spray 07/24/18 - Allergies Allergies/Adverse Reactions: Allergies Allergy/AdvReac Type Severity Reaction Status Date / Time No Known Allergies Allergy Verified 07/31/18 16:24 Review of Systems ROS Statement: Except As Marked, All Systems Reviewed And Found Negative Cardiovascular: Positive for: Chest Pain Physical Exam - Reviewed Nursing Documentation Reviewed: Yes Vital Signs Reviewed: Yes - Physical Exam Appears: Positive for: No Acute Distress Head Exam: Positive for: ATRAUMATIC, NORMOCEPHALIC Skin: Positive for: Normal Color, Warm, DRY Eye Exam: Positive for: Normal appearance ENT: Positive for: Normal ENT Inspection Neck: Positive for: Normal, Painless ROM Cardiovascular/Chest: Positive for: Regular Rate, Rhythm Respiratory: Positive for: Normal Breath Sounds. Negative for: Respiratory Distress Gastrointestinal/Abdominal: Positive for: Normal Exam, Soft. Negative for: Tenderness Neurologic/Psych: Positive for: Alert, Oriented (x3) - Laboratory Results Result Diagrams: 08/04/18 01:40 08/04/18 01:40 - ECG O2 Sat by Pulse Oximetry: 99 (RA) Pulse Ox Interpretation: Normal Medical Decision Making Medical Decision Making: Time: 104 Initial Impression: 62 year old male presenting with chest pain Initial Plan: --Alcohol serum --BNP --CMP --Drug screen --Trop I --CBC with differential --PTT / PT --Aspirin 324mg PO 0530 Labs reviewed and no clinically significant abnormalities noted. Pt stable for d/c with diagnosis of chest pain, cocaine abuse, and malingering. Additionally, provider reinforced need for abstinence from cocaine. Scribe Attestation: Documented by Alee George, acting as a scribe for Lucas Billings MD. Provider Scribe Attestation: All medical record entries made by the Scribe were at my direction and personally dictated by me. I have reviewed the chart and agree that the record accurately reflects my personal performance of the history, physical exam, medical decision making, and the department course for this patient. I have also personally directed, reviewed, and agree with the discharge instructions and disposition. Disposition - Clinical Impression Clinical Impression: Chest pain, Cocaine abuse - Patient ED Disposition Is Patient to be Admitted: No Counseled Patient/Family Regarding: Studies Performed, Diagnosis - Disposition Disposition: Routine/Home Disposition Time: :32 Condition: STABLE Instructions: Chest Pain, Cocaine Use Disorder Forms: [employer] (Citizen Of [place])
[2018-08-04 02:18] LABS: B-TYPE NATRIURETIC PEPTIDE 240 pg/ml (0-900)
[2018-08-04 02:26] LABS: ALB/GLOB RATIO 1.1 (1.0-2.1); ALBUMIN 4.1 g/dL (3.5-5.0); ALT/SGPT 30 U/L (21-72); AST/SGOT 35 U/L (17-59); BARBITURATES, UR NEGATIVE (NEGATIVE); BENZODIAZEPINES, UR NEGATIVE (NEGATIVE); BLOOD UREA NITROGEN 23 mg/dl (9-20); CALCIUM 9.4 mg/dL (8.4-10.2); GFR NON-AFRICAN AMERICAN 48; OPIATES, UR POSITIVE (NEGATIVE); PHENCYCLIDINE, UR NEGATIVE (NEGATIVE)
[2018-08-04 05:41] VITALS: BP 116/72; PULSE 72
== END 2018-08-04 05:41 | disposition home or self-care (01) ==
LOC: H.ER 00:47
DX: R07.89 Other chest pain (principal); F14.10 Cocaine abuse, uncomplicated; Z59.0 Homelessness

== ENCOUNTER 2018-09-08 23:06 | Emergency (ER) | payer OTHER ==
[2018-09-08 23:06] VITALS: BMI 46.2
[2018-09-08 23:41] VITALS: TEMP 98.2; O2SAT 99
--- NOTE | 2018-09-09 00:25 | ED PDOC ---
HPI: Hypertension/Hypotension Time Seen by Provider: 09/08/18 23:53 Chief Complaint (Nursing): High Blood Pressure Chief Complaint (Provider): High Blood Pressure History Per: Patient History/Exam Limitations: no limitations Onset/Duration Of Symptoms: Hrs (x 2) Current Symptoms Are (Timing): Still Present Associated Symptoms: Chest Pain, Headache Exacerbating Factor(s): Pos: Recently Missed Doses Of Medication Additional Complaint(s): 62 year old male with a history of opioid abuse, HTN and chronic arthritis presents to the ED with chest pain and a headache for the last 2 hours. Patient report pain is localized to his left side and is exacerbated with movement of his left shoulder. He states that he usually takes Clonidine for hypertension and Percocet for chronic left shoulder pain. However, he ran out of medications 1 week ago and has not received new prescription from pain management doctor. He has been treated several times in the past for heroin abuse and was given prescription for Narcan. Headache is not the worst of his life. Denies any heaving lifting, shortness of breath, and leg swelling. PMD: Dr. Noel Past Medical History Reviewed: Historical Data, Nursing Documentation, Vital Signs Vital Signs: Last Vital Signs Temp 98.2 F 09/08/18 23:39 Pulse 65 09/08/18 23:39 Resp 18 09/08/18 23:39 BP 183/101 H 09/08/18 23:39 Pulse Ox 99 09/08/18 23:39 - Medical History PMH: Anemia, Arthritis, Back Problems, HTN, Rheumatoid Arthritis, Chronic Pain Denies: Diabetes, Hepatitis, HIV, Chronic Kidney Disease, Seizures, Sexually Transmitted Disease - Surgical History Other surgeries: exploratory laparotomy - Family History Family History: States: Unknown Family Hx, CAD, Hypertension - Social History Drugs: Opiates - Immunization History Hx Tetanus Toxoid Vaccination: No Hx Influenza Vaccination: Yes Hx Pneumococcal Vaccination: Yes - Home Medications Home Medications: Ambulatory Orders Medication Instructions Recorded Carvedilol [Coreg] 6.25 mg PO Q12 #30 tab 06/30/18 amLODIPine [Norvasc] 10 mg PO DAILY #30 tab 06/30/18 Naloxone HCl [Narcan] 1 spray NS ONCE PRN #1 spray 07/22/18 Naloxone HCl [Narcan] 4 mg NS ONCE PRN #1 spray 07/24/18 cloNIDine [Catapres] 0.1 mg PO TID #90 tab 12/05/18 - Allergies Allergies/Adverse Reactions: Allergies Allergy/AdvReac Type Severity Reaction Status Date / Time No Known Allergies Allergy Verified 09/08/18 23:39 Review of Systems ROS Statement: Except As Marked, All Systems Reviewed And Found Negative Cardiovascular: Positive for: Chest Pain (left sided; worse with movement of left shoulder) Respiratory: Negative for: Shortness of Breath Gastrointestinal: Negative for: Abdominal Pain Musculoskeletal: Negative for: Leg Pain (and swelling) Neurological: Positive for: Headache Physical Exam - Reviewed Nursing Documentation Reviewed: Yes Vital Signs Reviewed: Yes - Physical Exam Appears: Positive for: Non-toxic, No Acute Distress Head Exam: Positive for: ATRAUMATIC, NORMAL INSPECTION, NORMOCEPHALIC Skin: Positive for: Normal Color, Warm, Dry Eye Exam: Positive for: EOMI, Normal appearance, PERRL Neck: Positive for: Normal, Painless ROM, Supple Cardiovascular/Chest: Positive for: Regular Rate, Rhythm, Other (left chest wall tenderness). Negative for: Chest Non Tender Respiratory: Positive for: Normal Breath Sounds. Negative for: Wheezing, Respiratory Distress Gastrointestinal/Abdominal: Positive for: Normal Exam, Soft. Negative for: Tenderness Extremity: Positive for: Other (painful ROM at left shoulder). Negative for: Normal ROM, Deformity Neurologic/Psych: Positive for: Alert, Oriented. Negative for: Motor/Sensory Deficits - Laboratory Results Result Diagrams: 09/09/18 01:00 09/09/18 01:00 - ECG ECG: Positive for: Interpreted By Me, Viewed By Me, Discussed With [employer] Installer ECG Rhythm: Positive for: Normal QRS, Sinus Rhythm (normal). Negative for: ST/T Changes Interpretation Of Abn EKG: Left ventricular hypertrophy noted Rate: 62 O2 Sat by Pulse Oximetry: 99 (RA) Pulse Ox Interpretation: Normal Medical Decision Making Medical Decision Makin:14 Impression: Headache, chest pain and high blood pressure R/o ACS; Likely hypertension related R/o intracranial bleeding Initial Plan: --Head CT --Troponin --BMP --CBC --CXR --Clonidine 0.2 mg PO --EKG 01:[address] COMPARISON: 05/10/2018. COMMENTS: There is normal configuration of sella turcica. There are no intra or extra- axial collections. There is no mass effect or midline shift. There is no evidence of hematoma formation. No hydrocephalus is present. The ventricles are symmetrical. No abnormal calcifications are present. There is diffuse age-appropriate cerebellar and cerebral atrophy with proportionally dilated ventricles and cortical sulci. There are bilateral periventricular and subcortical white matter hypolucencies compatible with mild chronic microvascular disease. Otherwise, no significant focal abnormalities are seen either in the posterior fossa or supratentorial compartment. Mild chronic mucosal inflammatory changes of the maxillary sinuses and ethmoid air cells. Air-fluid level in the right maxillary sinus. IMPRESSION: 1. Age-appropriate cerebellar and cerebral atrophy. 2. Mild chronic microvascular disease. 3. No evidence of acute intracranial pathology. Scribe Attestation: Documented by Sherron Jones acting as a scribe for Lucas Stauffer MD Provider Scribe Attestation: All medical record entries made by the Scribe were at my direction and personally dictated by me. I have reviewed the chart and agree that the record accurately reflects my personal performance of the history, physical exam, medical decision making, and the department course for this patient. I have also personally directed, reviewed, and agree with the discharge instructions and disposition. Disposition - Clinical Impression Clinical Impression: Chest pain, Hypertension - Patient ED Disposition Is Patient to be Admitted: No Doctor Will See Patient In The: Office Counseled Patient/Family Regarding: Studies Performed, Diagnosis, Need For Fo llowup - Disposition [facility] Disposition: Routine/Home Disposition Time: 03:00 Condition: GOOD Additional Instructions: GAIL BARRIOS, thank you for letting us take care of you today. Your provider was Lucas Stauffer MD and you were treated for HIGH BP. The emergency medical care you received today was directed at your acute symptoms. If you were prescribed any medication, please fill it and take as directed. It may take several days for your symptoms to resolve. Return to the Emergency Department if your symptoms worsen, do not improve, or if you have any other problems. Please contact your doctor or call one of the physicians/clinics you have been referred to that are listed on the Patient Visit Information form that is included in your discharge packet. Bring any paperwork you were given at the [facility] with you along with any medications you are taking to your follow up visit. Our treatment cannot replace ongoing medical care by a primary care provider outside of the emergency department. Thank you for allowing the [facility] team to be part of your care today. If you had an X-Ray or CT scan: A Radiologist will review the ED reading if any change in treatment is needed we will contact you. If you had a blood, urine, or wound culture: It will take several days for the results, if any change in treatment is needed we will contact you. If you had an STI test: It will take 48 hours for the results. Please call after 1 week if you have not heard back. Prescriptions: cloNIDine [Catapres] 0.1 mg PO TID #90 tab Instructions: Chest Pain, High Blood Pressure in Adults
[2018-09-09 01:10] LABS: BASO # 0.1 K/uL (0.0-0.2); EOS # 0.1 K/uL (0.0-0.7); HEMOGLOBIN 13.5 g/dL (12.0-18.0); LYMPH % 18.2 % (20.0-40.0); MEAN CELL VOLUME 85.7 fl (80.0-94.0); MEAN CORPUSCULAR HEMOGLOBIN 27.6 pg (27.0-31.0); MEAN CORPUSCULAR HGB CONC 32.2 g/dL (33.0-37.0); MEAN PLATELET VOLUME 9.5 fl (7.2-11.7); MONO # 0.6 K/uL (0.0-0.8); MONO % 9.9 % (0.0-10.0); NEUT # 3.9 K/uL (1.8-7.0); NEUT % 68.9 % (50.0-75.0); RBC 4.89 Mil/uL (4.40-5.90); RED CELL DISTRIBUTION WIDTH 14.9 % (11.5-14.5); WHITE BLOOD COUNT 5.7 K/uL (4.8-10.8)
[2018-09-09 01:20] LABS: BLOOD UREA NITROGEN 18 mg/dl (9-20); CALCIUM 9.4 mg/dL (8.4-10.2); GFR NON-AFRICAN AMERICAN > 60
--- NOTE | 2018-09-09 06:45 | CARD ---
APPROVED REPORT Date of service: 09/08/2018 EKG Measurement Heart [id number] <Conclusion> Normal sinus rhythm Left ventricular hypertrophy Nonspecific ST and T wave abnormality Abnormal ECG
[2018-09-09 07:05] VITALS: BP 129/54; PULSE 62; RESP 16
--- NOTE | 2018-09-09 08:16 | CT ---
Date of service: 09/09/2018 PROCEDURE: CT HEAD WITHOUT CONTRAST. HISTORY: headache COMPARISON: 05/10/2018 TECHNIQUE: Axial computed tomography images were obtained through the head/brain without intravenous contrast. Radiation dose: Total exam DLP = 748.47 mGy-cm. This CT exam was performed using one or more of the following dose reduction techniques: Automated exposure control, adjustment of the mA and/or kV according to patient size, and/or use of iterative reconstruction technique. FINDINGS: HEMORRHAGE: No intracranial hemorrhage. BRAIN: No mass effect or edema. Mild cerebral atrophy. Old right frontal lobe infarct.-similar-appearing VENTRICLES: Unremarkable. No hydrocephalus. CALVARIUM: Unremarkable. PARANASAL SINUSES: Interval right maxillary sinus and lesser ethmoidal sinus inflammatory changes. MASTOID AIR CELLS: Unremarkable as visualized. No inflammatory changes. OTHER FINDINGS: None. IMPRESSION: No interval intracranial hemorrhage or mass effect. Cerebral atrophy with similar appearing old/chronic appearing right frontal lobe infarct. This old right frontal lobe infarct was not mentioned on the [place] rad preliminary report. This was noted on the prior CT head report from 05/10/2018 Interval paranasal sinus inflammatory changes maxillary sinus most notably affected.
--- NOTE | 2018-09-09 09:19 | RAD ---
Date of service: 09/09/2018 PROCEDURE: CHEST RADIOGRAPH, 1 VIEW HISTORY: chest pain COMPARISON: 07/31/2018 FINDINGS: LUNGS: No consolidation seen. Probable 2 mm granuloma right mid lung zone-similar appearing PLEURA: No pneumothorax or pleural fluid seen. CARDIOVASCULAR: No aortic atherosclerotic calcification present. Normal heart size. Tortuous ectatic thoracic aorta as before. OSSEOUS STRUCTURES: She bilateral shoulder arthrosis. VISUALIZED UPPER ABDOMEN: Surgical clips left upper abdominal quadrant OTHER FINDINGS: None. IMPRESSION: No acute cardiopulmonary pathology noted
== END 2018-09-09 06:40 | disposition home or self-care (01) ==
LOC: H.ER 23:06
DX: R07.9 Chest pain, unspecified (principal); I10 Essential (primary) hypertension; G89.29 Other chronic pain; Z79.899 Other long term (current) drug therapy; M06.9 Rheumatoid arthritis, unspecified

== ENCOUNTER 2018-12-15 20:55 | Emergency (ER) | payer OTHER ==
[2018-12-15 20:55] VITALS: BMI 46.2
[2018-12-15 21:17] VITALS: RESP 18
--- NOTE | 2018-12-15 22:29 | ED PDOC ---
HPI: Hypertension/Hypotension Time Seen by Provider: 12/15/18 21:12 Chief Complaint (Nursing): High Blood Pressure Chief Complaint (Provider): Medical Clearance History Per: Patient History/Exam Limitations: no limitations Onset/Duration Of Symptoms: Days (x 1) Current Symptoms Are (Timing): Still Present Associated Symptoms: Chest Pain Exacerbating Factor(s): Pos: Recently Missed Doses Of Medication, Recent Street Drug Use Additional Complaint(s): 63 year old male well known to provider and ED for multiple visits related to substance abuse and HTN presents to the ED in [place] police custody for medical clearance. Patient was and remains in police custody when he was seen here a few hours ago and cleared with complaints of chest pain. Upon arrival to [facility], his blood pressure was remarkably elevated and he was sent back to the ED. While in prison, he reportedly became very agitated due to the long wait for processing. He reports ongoing chest pain. Patient admits that he has not taken his prescribed Clonidine in months. Denies shortness of breath and diaphoresis. PMD: none Past Medical History Reviewed: Historical Data, Nursing Documentation, Vital Signs Vital Signs: Last Vital Signs Temp 97.4 F L 12/15/18 20:57 Pulse 54 L 12/15/18 21:39 Resp 18 12/15/18 21:17 BP 201/115 H 12/15/18 21:39 Pulse Ox 100 12/15/18 21:17 - Medical History PMH: Anemia, Anxiety (Claustrophobia), Arthritis, Back Problems, HTN, Rheumatoid Arthritis, Chronic Pain Denies: Diabetes, Hepatitis, HIV, Chronic Kidney Disease, Seizures, Sexually Transmitted Disease - Family History Family History: States: CAD, Hypertension - Immunization History Hx Tetanus Toxoid Vaccination: No Hx Influenza Vaccination: Yes Hx Pneumococcal Vaccination: Yes - Home Medications Home Medications: Ambulatory Orders Medication Instructions Recorded cloNIDine [Catapres] 0.3 mg PO TID 10/09/18 Lidocaine 5% [Lidoderm] 1 patch TOP DAILY PRN #10 patch 10/14/18 Naproxen [Naprosyn] 1 tab PO BID PRN #25 tab 10/14/18 - Allergies Allergies/Adverse Reactions: Allergies Allergy/AdvReac Type Severity Reaction Status Date / Time No Known Allergies Allergy Verified 12/15/18 16:03 Review of Systems ROS Statement: Except As Marked, All Systems Reviewed And Found Negative Constitutional: Negative for: Sweats Cardiovascular: Positive for: Chest Pain. Negative for: Palpitations Respiratory: Negative for: Cough, Shortness of Breath Physical Exam - Reviewed Nursing Documentation Reviewed: Yes Vital Signs Reviewed: Yes - Physical Exam Appears: Positive for: No Acute Distress Head Exam: Positive for: ATRAUMATIC, NORMAL INSPECTION, NORMOCEPHALIC Skin: Positive for: Normal Color, Warm, Dry. Negative for: Rash Eye Exam: Positive for: EOMI, Normal appearance, PERRL Neck: Positive for: Normal, Painless ROM, Supple Cardiovascular/Chest: Positive for: Regular Rate, Rhythm. Negative for: Murmur Respiratory: Positive for: Normal Breath Sounds. Negative for: Wheezing, Respiratory Distress Gastrointestinal/Abdominal: Positive for: Normal Exam, Soft. Negative for: Tenderness Back: Positive for: Normal Inspection. Negative for: L CVA Tenderness, R CVA Tenderness Extremity: Positive for: Normal ROM. Negative for: Deformity Neurological/Psych: Positive for: Awake, Alert, Normal Tone, Oriented. Negative for: Motor/Sensory Deficits - ECG O2 Sat by Pulse Oximetry: 100 (RA) Pulse Ox Interpretation: Normal Medical Decision Making Medical Decision Makin;14 Impression: elevated blood pressure in setting of non-compliance Initial Plan: --Clonidine .3 mg PO Patient was given a full ER workup in the ED during previous visit today and does not require additional testing. 0015 Patient reports improvement of symptoms. Blood pressure has normalized after clonidine. He is stable for discharge and cleared for incarceration. Scribe Attestation: Documented by Sherron Jones, acting as a scribe for Lucas Billings MD. Provider Scribe Attestation: All medical record entries made by the Scribe were at my direction and personally dictated by me. I have reviewed the chart and agree that the record accurately reflects my personal performance of the history, physical exam, medical decision making, and the department course for this patient. I have also personally directed, reviewed, and agree with the discharge instructions and disposition. Disposition - Clinical Impression Clinical Impression: Hypertension - Patient ED Disposition Is Patient to be Admitted: No - Disposition Disposition: Routine/Home Disposition Time: 00:15 Condition: STABLE Additional Instructions: Patient is medically stable for incarceration Instructions: High Blood Pressure in Adults Forms: [employer] ([place])
[2018-12-15 23:04] VITALS: TEMP 98.4
[2018-12-16 00:21] VITALS: BP 138/80; PULSE 52; O2SAT 97
== END 2018-12-16 00:24 | disposition home or self-care (01) ==
LOC: H.ER 20:55
DX: I10 Essential (primary) hypertension (principal); Z91.14 Patient's other noncompliance with medication regimen

== ENCOUNTER 2018-12-18 17:15 | Emergency (ER) | payer OTHER ==
[2018-12-18 17:15] VITALS: BMI 46.2
[2018-12-18 17:20] VITALS: TEMP 97.8
--- NOTE | 2018-12-18 18:40 | ED PDOC ---
HPI: Chest Pain Time Seen by Provider: 12/18/18 17:34 Chief Complaint (Nursing): Chest Pain Chief Complaint (Provider): Chest Pain History Per: Patient History/Exam Limitations: no limitations Onset/Duration Of Symptoms: Hrs, Intermittent Episodes Current Symptoms Are (Timing): Still Present Quality: Sharp Additional Complaint(s): 63 year old male with a past medical history of hypertension, angina, and arthritis who is presenting to the ED for evaluation of stabbing intermittent midsternal chest pain that is non-radiating onset a few hours ago. Patient states that pain is associated with nausea and admits that he is non-compliant with his clonidine. He also admits that he used cocaine today. Patient offers no other medical complaints at this time. PMD: none provided Past Medical History Reviewed: Historical Data, Nursing Documentation, Vital Signs Vital Signs: Last Vital Signs Temp 97.8 F 12/18/18 17:19 Pulse 62 12/18/18 18:24 Resp 16 12/18/18 17:19 BP 171/103 H 12/18/18 18:24 Pulse Ox 96 12/18/18 17:19 - Medical History PMH: Anemia, Anxiety (Claustrophobia), Arthritis, Back Problems, HTN, Rheumatoid Arthritis, Chronic Pain Denies: Diabetes, Hepatitis, HIV, Chronic Kidney Disease, Seizures, Sexually Transmitted Disease - Surgical History Other surgeries: Orthopedic Surgery - Family History Family History: States: CAD, Hypertension - Social History Current smoker - smoking cessation education provided: No Alcohol: None Drugs: Denies - Immunization History Hx Tetanus Toxoid Vaccination: No Hx Influenza Vaccination: Yes Hx Pneumococcal Vaccination: Yes - Home Medications Home Medications: Ambulatory Orders Medication Instructions Recorded cloNIDine [Catapres] 0.3 mg PO TID 10/09/18 Lidocaine 5% [Lidoderm] 1 patch TOP DAILY PRN #10 patch 10/14/18 Naproxen [Naprosyn] 1 tab PO BID PRN #25 tab 10/14/18 - Allergies Allergies/Adverse Reactions: Allergies Allergy/AdvReac Type Severity Reaction Status Date / Time No Known Allergies Allergy Verified 12/18/18 17:20 Review of Systems ROS Statement: Except As Marked, All Systems Reviewed And Found Negative Cardiovascular: Positive for: Chest Pain Gastrointestinal: Positive for: Nausea Physical Exam - Reviewed Nursing Documentation Reviewed: Yes Vital Signs Reviewed: Yes - Physical Exam Appears: Positive for: Non-toxic, No Acute Distress Head Exam: Positive for: ATRAUMATIC, NORMAL INSPECTION, NORMOCEPHALIC Skin: Positive for: Normal Color, Warm, DRY Eye Exam: Positive for: EOMI, Normal appearance, PERRL ENT: Positive for: Normal ENT Inspection Neck: Positive for: Normal, Painless ROM Cardiovascular/Chest: Positive for: Regular Rate, Rhythm. Negative for: Murmur Respiratory: Positive for: Normal Breath Sounds. Negative for: Respiratory D istress Gastrointestinal/Abdominal: Positive for: Normal Exam, Soft. Negative for: Tenderness Back: Positive for: Normal Inspection. Negative for: L CVA Tenderness, R CVA Tenderness Extremity: Positive for: Normal ROM. Negative for: Deformity, Swelling Neurological/Psych: Positive for: Awake, Alert, Normal Tone, Oriented. Negative for: Motor/Sensory Deficits - Laboratory Results Result Diagrams: 12/18/18 18:32 12/18/18 18:32 - ECG O2 Sat by Pulse Oximetry: 96 (RA) Pulse Ox Interpretation: Normal Medical Decision Making Medical Decision Making: Time: 18:10 Plan: --EKG --Alcohol Serum --CMP --Troponin --ED Urine Dipstick --CBC --Chest x-ray --Catapres 0.3 mg PO --Urinalysis Scribe Attestation: Documented by Lina Jade, acting as a scribe for Juana Barbosa MD. Provider Scribe Attestation: All medical record entries made by the Scribe were at my direction and personally dictated by me. I have reviewed the chart and agree that the record accurately reflects my personal performance of the history, physical exam, medical decision making, and the department course for this patient. I have also personally directed, reviewed, and agree with the discharge instructions and disposition. Disposition - Clinical Impression Clinical Impression: Cocaine abuse, Atypical chest pain - Disposition Disposition Time: 19:00 Condition: STABLE Additional Instructions: GAIL SRINIVASANO, thank you for letting us take care of you today. Your provider was Lucas Billings MD and you were treated for NAUSEA, POSS HIGH BLOOD PRESSURE. The emergency medical care you received today was directed at your acute symptoms. If you were prescribed any medication, please fill it and take as directed. It may take several days for your symptoms to resolve. Return to the Emergency Department if your symptoms worsen, do not improve, or if you have any other problems. Please contact your doctor or call one of the physicians/clinics you have been referred to that are listed on the Patient Visit Information form that is included in your discharge packet. Bring any paperwork you were given at dis charge with you along with any medications you are taking to your follow up visit. Our treatment cannot replace ongoing medical care by a primary care provider outside of the emergency department. Thank you for allowing the [facility] team to be part of your care today. If you had an X-Ray or CT scan: A Radiologist will review the ED reading if any change in treatment is needed we will contact you. If you had a blood, urine, or wound culture: It will take several days for the results, if any change in treatment is needed we will contact you. If you had an STI test: It will take 48 hours for the results. Please call after 1 week if you have not heard back. Instructions: Cocaine Use Disorder, Chest Pain That Is Not Caused by the Heart (DC) Forms: [employer] (Spanish) Patient Signed Over To: Lucas Billings Handoff Comments: Pending labs.
--- NOTE | 2018-12-18 18:50 | RAD ---
Date of service: 12/18/2018 HISTORY: Chest pain COMPARISON: 12/15/2018. FINDINGS: LUNGS: The lungs are well inflated and clear. PLEURA: No pleural effusions or pneumothorax. CARDIOVASCULAR: The heart is normal in size. No aortic atherosclerotic calcifications present. OSSEOUS STRUCTURES: Within normal limits for the patient's age. VISUALIZED UPPER ABDOMEN: Normal. OTHER FINDINGS: There are multiple surgical clips in the right upper quadrant and epigastrium. IMPRESSION: No active pulmonary disease.
[2018-12-18 19:04] LABS: BASO % 0.5 % (0.0-2.0); EOS % 0.7 % (0.0-4.0); HEMOGLOBIN 14.2 g/dL (12.0-18.0); LYMPH # 1.3 K/uL (1.0-4.3); LYMPH % 22.1 % (20.0-40.0); MEAN CELL VOLUME 84.3 fl (80.0-94.0); MEAN CORPUSCULAR HEMOGLOBIN 27.2 pg (27.0-31.0); MEAN CORPUSCULAR HGB CONC 32.3 g/dL (33.0-37.0); MEAN PLATELET VOLUME 9.7 fl (7.2-11.7); MONO # 0.6 K/uL (0.0-0.8); MONO % 10.4 % (0.0-10.0); NEUT % 66.3 % (50.0-75.0); NRBC % 0.1 % (0.0-0.0); RBC 5.22 Mil/uL (4.40-5.90)
--- NOTE | 2018-12-18 19:18 | ED PDOC ---
- Laboratory Results Result Diagrams: 12/18/18 18:32 12/18/18 18:32 - ECG O2 Sat by Pulse Oximetry: 96 (RA) Pulse Ox Interpretation: Normal Medical Decision Making Medical Decision Making: Time: 1899 -- Patient endorsed to me by Dr. Barbosa, pending 1st and 2nd Troponin and re- evaluation. 01:23 Labs reviewed no clinically significant abnormalities including second Troponin. Diagnosis is cocaine abuse and chest pain. Patient will be discharged home. Scribe Attestation: Documented by Lauryn Birch, acting as a scribe Bryon Billings MD. Provider Scribe Attestation: All medical record entries made by the Scribe were at my direction and personally dictated by me. I have reviewed the chart and agree that the record accurately reflects my personal performance of the history, physical exam, medical decision making, and the department course for this patient. I have also personally directed, reviewed, and agree with the discharge instructions and disposition. Disposition - Clinical Impression Clinical Impression: Cocaine abuse, Atypical chest pain - POA Present On Arrival: None - Disposition Disposition: Routine/Home Disposition Time: 01:23 Condition: STABLE Additional Instructions: GAIL BARRIOS, thank you for letting us take care of you today. Your provider was Lucas Billings MD and you were treated for NAUSEA, POSS HIGH BLOOD PRESSURE. The emergency medical care you received today was directed at your acute symptoms. If you were prescribed any medication, please fill it and take as directed. It may take several days for your symptoms to resolve. Return to the Emergency Department if your symptoms worsen, do not improve, or if you have any other problems. Please contact your doctor or call one of the physicians/clinics you have been referred to that are listed on the Patient Visit Information form that is included in your discharge packet. Bring any paperwork you were given at discharge with you along with any medications you are taking to your follow up visit. Our treatment cannot replace ongoing medical care by a primary care provider outside of the emergency department. Thank you for allowing the [facility] team to be part of your care today. If you had an X-Ray or CT scan: A Radiologist will review the ED reading if any change in treatment is needed we will contact you. If you had a blood, urine, or wound culture: It will take several days for the results, if any change in treatment is needed we will contact you. If you had an STI test: It will take 48 hours for the results. Please call after 1 week if you have not heard back. Instructions: Cocaine Use Disorder, Chest Pain That Is Not Caused by the Heart (DC) Forms: [employer] ([place]ian)
[2018-12-18 19:29] LABS: ALB/GLOB RATIO 1.1 (1.0-2.1); ALBUMIN 4.5 g/dL (3.5-5.0); ALT/SGPT 16 U/L (21-72); AST/SGOT 29 U/L (17-59); BLOOD UREA NITROGEN 25 mg/dl (9-20); CALCIUM 9.8 mg/dL (8.4-10.2); GFR NON-AFRICAN AMERICAN 41
[2018-12-18 20:21] LABS: SQUAMOUS EPITHIAL 1 /hpf (0-5); URINE BILIRUBIN NEGATIVE (NEGATIVE); URINE BLOOD NEGATIVE (NEGATIVE); URINE CLARITY SLIGHTY-CLOUDY (Clear); URINE COLOR YELLOW (YELLOW); URINE GLUCOSE (UA) NEG (NEGATIVE); URINE LEUKOCYTE ESTERASE NEG Leu/uL (Negative); URINE PROTEIN 100 mg/dL (NEGATIVE)
[2018-12-18 20:26] LABS: URINE UROBILINOGEN 0.2 mg/dL (0.2-1.0)
[2018-12-18 20:52] VITALS: BP 138/93; RESP 18
[2018-12-19 02:11] VITALS: PULSE 68
--- NOTE | 2018-12-19 12:24 | CARD ---
APPROVED REPORT Date of service: 12/18/2018 EKG Measurement Heart [id number] <Conclusion> Sinus bradycardia Possible Left atrial enlargement Left ventricular hypertrophy Abnormal ECG
[2018-12-19 17:34] VITALS: O2SAT 96
== END 2018-12-19 00:58 | disposition home or self-care (01) ==
LOC: H.ER 17:15
DX: F14.10 Cocaine abuse, uncomplicated (principal); R07.89 Other chest pain; Z91.19 Patient's noncompliance with other medical treatment and regimen; I10 Essential (primary) hypertension

== ENCOUNTER 2019-02-27 03:37 | Emergency (ER) | payer OTHER ==
[2019-02-27 03:38] VITALS: BMI 46.2
[2019-02-27 03:56] VITALS: RESP 18
--- NOTE | 2019-02-27 04:06 | ED PDOC ---
HPI: Psych/Substance Abuse Time Seen by Provider: 02/27/19 04:00 Chief Complaint (Nursing): Substance Abuse Chief Complaint (Provider): substance abuse History Per: Patient, EMS Additional Complaint(s): 63 y/o male brought in by EMS for evaluation of substance abuse. Patient admits to using heroin and cocaine tonight. States he is noncompliant with his blood pressure medication. Denies acute medical or psychiatric complaints; states he just wants to sleep. Past Medical History Reviewed: Historical Data, Nursing Documentation, Vital Signs Vital Signs: Last Vital Signs Temp 97.6 F 02/27/19 03:40 Pulse 64 02/27/19 03:56 Resp 18 02/27/19 03:56 BP 190/92 H 02/27/19 03:56 Pulse Ox 99 02/27/19 03:56 Primary Care Provider: FAMILY PROVIDER,NO - Medical History PMH: Anemia, Anxiety (Claustrophobia), Arthritis, Back Problems, HTN, Rheumatoid Arthritis, Chronic Pain Denies: Diabetes, Hepatitis, HIV, Chronic Kidney Disease, Seizures, Sexually Transmitted Disease - Family History Family History: States: CAD, Hypertension - Immunization History Hx Tetanus Toxoid Vaccination: No Hx Influenza Vaccination: Yes Hx Pneumococcal Vaccination: Yes - Home Medications Home Medications: Ambulatory Orders Medication Instructions Recorded cloNIDine [Catapres] 0.3 mg PO TID 10/09/18 - Allergies Allergies/Adverse Reactions: Allergies Allergy/AdvReac Type Severity Reaction Status Date / Time No Known Allergies Allergy Verified 12/18/18 17:20 Review of Systems ROS Statement: Except As Marked, All Systems Reviewed And Found Negative Physical Exam - Reviewed Nursing Documentation Reviewed: Yes Vital Signs Reviewed: Yes - Physical Exam Appears: Positive for: Well, Non-toxic, No Acute Distress Head Exam: Positive for: ATRAUMATIC, NORMAL INSPECTION, NORMOCEPHALIC Skin: Positive for: Normal Color Eye Exam: Positive for: Normal appearance ENT: Positive for: Normal ENT Inspection Cardiovascular/Chest: Positive for: Regular Rate, Rhythm Respiratory: Positive for: Normal Breath Sounds Gastrointestinal/Abdominal: Positive for: Normal Exam Back: Positive for: Normal Inspection Extremity: Positive for: Normal ROM Neurological/Psych: Positive for: Awake, Alert, Oriented (x3) - ECG O2 Sat by Pulse Oximetry: 99 - Progress ED Course And Treament: -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 Ambulating steady gait. Vitals stable Patient stable for discharge Return precautions given Disposition - Clinical Impression Clinical Impression: Polysubstance abuse - Patient ED Disposition Is Patient to be Admitted: No Counseled Patient/Family Regarding: Studies Performed, Diagnosis, Need For Followup - Disposition Disposition: Routine/Home Disposition Time: 06:00 Condition: IMPROVED Instructions: Polysubstance Abuse
[2019-02-27 06:36] VITALS: BP 122/78; PULSE 60; TEMP 98.2
[2019-03-02 22:20] VITALS: O2SAT 99
== END 2019-02-27 06:20 | disposition home or self-care (01) ==
LOC: H.ER 03:37
DX: F19.10 Other psychoactive substance abuse, uncomplicated (principal); I10 Essential (primary) hypertension; M06.9 Rheumatoid arthritis, unspecified